=== PATIENT | female | born 1935 | race Caucasian/White ===

== ENCOUNTER 2018-12-30 11:55 | Inpatient (IN) | payer MEDICARE, OTHER, SELFPAY ==
[2018-12-30 11:56] VITALS: BP 101/65; PULSE 99; RESP 16; TEMP 36; O2SAT 94; BMI 25.6
--- NOTE | 2018-12-30 12:17 | RAD_ITS ---
STUDY: X-RAY CHEST REASON FOR EXAM: Female, 83 years old. Difficulty breathing. Abdominal swelling. TECHNIQUE: PA and lateral views of the chest. COMPARISON: None. FINDINGS: EKG electrodes are seen. Coarsened increased interstitial markings in both lungs worse at the lung bases with areas of confluence. This is suggestive for chronic interstitial fibrosis. Clinical correlation is recommended. There is no demonstrated pleural abnormality. Normal size heart. Normal mediastinum and epi. Normal visualized pulmonary arteries. There is atherosclerotic calcification of the aortic arch with tortuosity. There are diffuse degenerative changes of the visualized thoracic spine. Normal visualized ribs, clavicles, and shoulders. There is no demonstrated abnormality of the visualized soft tissue structures of the upper abdomen. RAD/Chest PA and Lateral IMPRESSION: Findings suggestive of chronic interstitial fibrosis. Electronically Signed: Kamaljit Logan, at 14:01 EST , Service support ,
--- NOTE | 2018-12-30 12:17 | CT_ITS ---
STUDY: CT ABDOMEN AND PELVIS WITHOUT CONTRAST REASON FOR EXAM: Female, 83 years old. Shortness of breath. Abdominal pain and swelling. RADIATION DOSAGE (If Supplied By Facility): CTDIvol = ( 7.54 ) mGy, DLP = ( 363.72 ) mGycm TECHNIQUE: Transaxial images were obtained from the dome of the diaphragm to the symphysis pubis without oral contrast, and without intravenous contrast. Sagittal and coronal images were reconstructed. Individualized dose optimization techniques were used for this CT. COMPARISON: None. FINDINGS: Coarsened increased interstitial markings at the lung bases with areas of bronchiectasis suggestive of chronic interstitial fibrosis. Coronary artery calcification. Mild hepatomegaly. There is a contracted gallbladder with thickened gallstones. There is mild splenomegaly. Normal pancreas. Free fluid in the abdomen and pelvis. Normal bilateral adrenal glands. Normal right kidney. Normal left kidney. There is a small hiatal hernia. Normal small intestine. There are multiple colonic diverticula consistent with diverticulosis. The appendix is visualized and appears normal. There is diffuse atherosclerotic calcification of the abdominal aorta and its major visceral branches., without a demonstrated aneurysm. Normal inferior vena cava. There is borderline retroperitoneal lymphadenopathy with enlarged nodes no greater than 10mm in the short axis diameter. Normal urinary bladder. Enlarged right inguinal lymph node measuring 2 cm. Small inguinal lymph nodes are similar also seen bilaterally. There is a small umbilical hernia containing fat. There are diffuse degenerative changes of the visualized lumbar spine. 20% loss of height of the superior endplate of the L1 vertebrae. CT/Abdomen/Pelvis without Cont IMPRESSION: Contracted gallbladder containing stones. Ascites. Hepatosplenomegaly. Findings suggestive of a chronic interstitial fibrosis at the lung bases. Electronically Signed: Kamaljit Logan, at 14:04 EST , Service support ,
--- NOTE | 2018-12-30 12:17 | EKG12_ITS ---
Test Reason : Blood Pressure : / mmHG Vent. Rate : 081 BPM Atrial Rate : 081 BPM P-R Int : 170 ms QRS Dur : 124 ms QT Int : 414 ms P-R-T Axes : 024 068 049 degrees QTc Int : 480 ms Sinus rhythm with marked sinus arrhythmia Possible Lateral infarct , age undetermined Left bundle branch block Confirmed by JUANITA ROMERO, PARESH ([id number]), editor managing newspaper PATRICE GONZALEZ ([id number]) on 01/04/2019 11:19:59 AM Referred By: Moody Belcher Confirmed By:PARESH GRANT MD
--- NOTE | 2018-12-30 12:18 | ED.VIS.GEN ---
History of Present Illness Chief Complaint: Abd Pain Detail of Chief Complaint: Nominal pain and distention, shortness of breath Informant: Patient, Family Onset: Weeks Context: Gradual Onset Timing: Waxes and wanes Current Severity: Mild Maximum Severity: Moderate Narrative: Patient presents with daughter for abdominal pain and swelling he had patient recently moved to the area from [place]. She is been following with Dr. Haskins. Patient states that at 1 of her initial visits with him she mentioned a chronic cough. There was concern that this was secondary to the amlodipine that she was taking for her blood pressure. This medication was stopped, however the patient developed abdominal pain and swelling. After several weeks decision was made to put her back on her amlodipine but the swelling in her abdomen did not resolve. She is now currently on Lasix as well to try to get rid of this extra fluid but has not improved. Symptoms seem to be worse throughout the day and patient has difficulty breathing secondary to her abdominal distention. She complains of itching at night as well. - Past Medical History (1) Hypertension Status: Chronic (2) High cholesterol Status: Chronic Past Medical History - Allergies and Home Meds Allergies/Adverse Reactions: Allergies WATER PILL Adverse Reaction (Uncoded 12/30/18 11:59) Other DIDNT FELL RIGHT Primary Care Physician: Ember Haskins MD [Primary Care Provider] - Review of Systems General: Denies: Chills, Fever Eyes: Denies: Visual changes - bilaterally ENT: Denies: Bilateral ear pain Cardiovascular: Denies: Chest pain Respiratory: Reports: Dyspnea. Denies: Cough Gastrointestinal: Reports: Abdominal pain. Denies: Nausea, Vomiting, Diarrhea Genitourinary: Denies: Dysuria Musculoskeletal: Denies: Extremity Pain Skin: Denies: Rash Neurological: Denies: Headache Hematologic: Denies: Easy bruising Allergy: Denies: Uticaria Physical Exam Vital Signs/Narrative: Vital Signs Temp Pulse Resp BP Pulse Ox 12/30/18 11:56 96.8 F L 99 16 101/65 94 Inital Vital Signs reviewed: Yes General: Well nourished, Well developed Head: Normocephalic ENT: Moist mucous membranes Neck: Supple Cardiovascular: Regular rate, Regular rhythm Respiratory: No distress, CTA bilaterally Abdomen: Soft, Normal bowel sounds, Tender - Mild diffuse tenderness., - - Abdomen slightly distended.. Negative for: Guarding, Rebound tenderness Extremities: Nontender, No edema Skin: Normal color, No rash Neurological: Alert, Oriented x3 Psychological: Normal affect Diagnostic/Tx/Re-eval Impressions Abdomen/Pelvis CT 12/30/18 12:17 IMPRESSION: Contracted gallbladder containing stones. Ascites. Hepatosplenomegaly. Findings suggestive of a chronic interstitial fibrosis at the lung bases. Electronically Signed: Kamaljit Mustafajanet, at 14:04 EST , Service support , Chest X-Ray 12/30/18 12:17 IMPRESSION: Findings suggestive of chronic interstitial fibrosis. Electronically Signed: Kamaljit Doreen, at 14:01 EST , Service support , 12/30/18 12:17 Abdomen/Pelvis without Cont [CT] Stat Chest PA and Lateral [RAD] Stat 12/30/18 14:20 Stool Stool Occult Blood (WALTER) - Final Occult Blood Positive Laboratory Results 12/30/18 12/30/18 12/30/18 12:25 12:25 12:25 WBC 5.8 RBC 3.79 L Hgb 8.4 L Hct 28.3 L MCV 74.7 L MCH 22.2 L MCHC 29.7 L RDW Std Deviation 51.0 H RDW Coeff of Kerri 19.0 H Plt Count 166 MPV 9.9 Immature Gran % (Auto) 0.300 Neut % (Auto) 69.9 Lymph % (Auto) 17.8 L [place] % (Auto) 9.4 Eos % (Auto) 1.7 Baso % (Auto) 0.9 Absolute Neuts (auto) 4.1 Absolute Lymphs (auto) 1.04 Nucleated RBC % 0 Sodium 141 Potassium 2.9 L Chloride 101 Carbon Dioxide 31.0 Anion Gap 9 BUN 9 Creatinine 0.79 Estim Creat Clear Calc 34.90 Est GFR (MDRD) Af Amer 89 Est GFR (MDRD) Non-Af 74 BUN/Creatinine Ratio 11.3 Glucose 182 H Calcium 7.8 L Total Bilirubin 0.50 Direct Bilirubin 0.19 AST 22 ALT 19 Alkaline Phosphatase 108 B-Natriuretic Peptide 146.9 H Total Protein 7.4 Albumin 2.7 L Globulin 4.7 H Lipase 57 L Urine Color Urine Clarity Urine pH Ur Specific [place] Urine Protein Urine Glucose (UA) Urine Ketones Urine Occult Blood Urine Nitrite Urine Bilirubin Urine Urobilinogen Ur Leukocyte Esterase Urine RBC Urine WBC Ur Squamous Epith Cells Urine Bacteria Urine Mucus 12/30/18 12:30 WBC RBC Hgb Hct MCV MCH MCHC RDW Std Deviation RDW Coeff of Kerri Plt Count MPV Immature Gran % (Auto) Neut % (Auto) Lymph % (Auto) [place] % (Auto) Eos % (Auto) Baso % (Auto) Absolute Neuts (auto) Absolute Lymphs (auto) Nucleated RBC % Sodium Potassium Chloride Carbon Dioxide Anion Gap BUN Creatinine Estim Creat Clear Calc Est GFR (MDRD) Af Amer Est GFR (MDRD) Non-Af BUN/Creatinine Ratio Glucose Calcium Total Bilirubin Direct Bilirubin AST ALT Alkaline Phosphatase B-Natriuretic Peptide Total Protein Albumin Globulin Lipase Urine Color Yellow Urine Clarity Clear Urine pH 7.0 Ur Specific [place] 1.010 Urine Protein Negative Urine Glucose (UA) Normal Urine Ketones Negative Urine Occult Blood Negative Urine Nitrite Negative Urine Bilirubin Negative Urine Urobilinogen Normal Ur Leukocyte Esterase Negative Urine RBC 0 SEEN Urine WBC 0-5 SEEN Ur Squamous Epith Cells 0-5 SEEN Urine Bacteria 0 SEEN Urine Mucus 0 SEEN - EKG Initial EKG Interpretation: Sinus Rhythm - Sinus 81 with intraventricular conduction delay. No acute ST change. - Medical Decision Making Test results are discussed with the patient. She was noted to be anemic now. I was able to find records from admission at [facility] on August 05. At that time her hemoglobin was 11.0. I did perform rectal examination here and it does test positive for blood. Patient has not noted any gross blood. I discussed with the patient and daughter at bedside at length I do not at this time know the cause of her ascites. I did raise the possibility that she may have a malignancy somewhere causing this. Patient states she is never had a colonoscopy and does not follow-up with [facility] regularly. She never had a hysterectomy and still has both her ovaries. I discussed with them that she will need to have fluid in her abdomen tapped for further testing, but I cannot guarantee will be done as an inpatient. We will admit her to monitor her blood counts. I have spoken with Dr. Belcher. ED Disposition - Plan for ED Patient: Disposition: Acute Care Hospital [facility] Diagnosis: Anemia, GI bleed, Ascites Referrals: Ember Haskins MD [Primary Care Provider] -
[2018-12-30 12:40] LABS: Absolute Lymphocyte Count 1.04 X10^3/uL (0.83-4.51); Absolute Neutrophil Count 4.1 X10^3/uL (2.0-7.7); Basophil# 0.05 X10^3/uL; Basophil% 0.9 % (0-1); Eosinophils% 1.7 % (0-5); Hematocrit 28.3 % (37-47); Hemoglobin 8.4 g/dL (12.0-15.0); Lymphocyte # 1.04 X10^3/ul (4.0); Lymphocyte % 17.8 % (19-41); Mean Corp Hgb Conc 29.7 g/dL (32-36); Mean Corpuscular Hgb 22.2 pg (27.0-32.0); Mean Corpuscular Volume 74.7 fL (81-99); Mean Platelet Vol. 9.9 fl (6.2-12.0); Monocyte# 0.55 X10^3/uL; Monocyte% 9.4 % (0-10); NRBC Flagged by Analyzer 0 % (0-5); Neutrophil # 4.08 X10^3/uL (2.7-7.7); Neutrophil % 69.9 % (47-70); Platelet Count 166 K/mm3 (150-450); Red Blood Count 3.79 M/mm3 (4.2-5.4); White Blood Count 5.8 K/mm3 (4.4-11.0)
[2018-12-30 12:48] LABS: AST(SGOT) 22 U/L (15-37); Alanine Aminotransfer ALT/SGPT 19 U/L (13-56); Albumin, Serum 2.7 g/dL (3.2-5.0); Alkaline Phosphatase 108 U/L (45-117); Anion Gap 9 (5-15); BUN 9 mg/dL (7-18); BUN/Creat Ratio 11.3 RATIO (10-20); Bilirubin, Direct 0.19 mg/dL (0.00-0.30); Calcium,Total 7.8 mg/dL (8.5-10.1); Chloride 101 mmol/L (98-107); Creatinine, Serum 0.79 mg/dL (0.55-1.02); EST Glomerular Filtration Rate 74 mL/min (>60); Est Glom Filt Rate - Afr Amer 89 mL/min (>60); Globulin 4.7 g/dL (2.2-4.2); Glucose 182 mg/dL (74-106); Lipase 57 U/L (73-393); Potassium 2.9 mmol/L (3.5-5.1); Protein, Total 7.4 g/dL (6.4-8.2); Sodium Level 141 mmol/L (136-145)
[2018-12-30 12:53] LABS: Bacteria 0 SEEN /hpf (None Seen); Mucous, Urine 0 SEEN /hpf (<or=2+); Red Blood Cells-Urine 0 SEEN /hpf (0-5)
[2018-12-30 13:03] LABS: Color, Urine Yellow (Yellow); Glucose, Dipstick Normal (Normal); Ketone-Dipstick Negative (Negative); Leukocyte Esterase-Dipstick Negative /ul (Negative); Nitrite-Dipstick Negative (Negative); Occult Blood-Urine Negative /ul (Negative); Protein-Dipstick Negative (Negative); Urine Bilirubin Dipstick Negative (Negative); Urine Clarity Clear (Clear); Urine Urobilinogen Normal (Normal)
[2018-12-30 13:14] LABS: Squamous Epithelial Cells - UA 0-5 SEEN /hpf (5-10); White Blood Cells 0-5 SEEN /hpf (0-5)
[2018-12-30 13:15] LABS: BNP,B-Type NATRIURETIC PEPTIDE 146.9 pg/mL (0-100)
[2018-12-30 14:28] VITALS: BP 121/49; PULSE 71; RESP 18; O2SAT 98
[2018-12-30 15:30] VITALS: BP 151/58; PULSE 86; RESP 20; O2SAT 99
[2018-12-30 16:29] VITALS: BP 144/50; PULSE 71; RESP 16; TEMP 36.9; O2SAT 95
[2018-12-30 16:32] VITALS: BMI 26.5
[2018-12-30 16:34] VITALS: BMI 26.6
--- NOTE | 2018-12-30 16:54 | CT_ITS ---
STUDY: CT ABDOMEN AND PELVIS WITH CONTRAST REASON FOR EXAM: Female, 83 years old. Ascites, pain RADIATION DOSAGE (If Supplied By Facility): CTDIvol = ( 18.24 ) mGy, DLP = ( 825.56 ) mGycm TECHNIQUE: Transaxial images were obtained from the dome of the diaphragm to the symphysis pubis without oral contrast. IV/Oral Isovue 370 100mL was administered. Sagittal and coronal images were reconstructed. Individualized dose optimization techniques were used for this CT. COMPARISON: December 30, 2018 at 13:14 hours FINDINGS: The visualized lung bases demonstrate interstitial prominence and atelectasis and fibrotic changes. The visualized portions of the heart are within normal limits. Normal liver. Cholelithiasis. No significant dilatation of extrahepatic biliary system. Enlarged spleen. Normal pancreas. Normal bilateral adrenal glands. Normal right kidney. Normal left kidney. Normal visualized stomach. Mild ileus of the small intestine. Diverticulosis of the colon. The appendix is visualized and appears normal. Normal abdominal aorta. Normal inferior vena cava. Normal retroperitoneum. Mild ascites. Mildly prominent mesenteric nodes and mesenteric thickening. Normal urinary bladder. Moderate pelvic fluid. Small uterus. Mild fluid in the right inguinal canal. Small umbilical hernia with fluid. Degenerative vertebral changes and scoliosis. Superior endplate depression of L1. CT/Abdomen/Pelvis WITH Contrast IMPRESSION: Cholelithiasis. Splenomegaly. Small bowel ileus. Colonic diverticulosis. Ascites and pelvic fluid. There is mesenteric thickening and mildly prominent mesenteric nodes. Interstitial prominence and fibrotic changes in the lung bases. Mild ascitic fluid in the right inguinal canal and umbilical hernia. Electronically Signed: Joseph Ahuja DO at 20:03 EST Tel [phone], Service support ,
[2018-12-30 17:13] LABS: Iron 15 ug/dL (50-170); Iron Binding Capacity,Total 364 ug/dL (250-450); PERCENT IRON SATURATION 4.1 % (15.0-55.0)
--- NOTE | 2018-12-30 18:10 | CON.PCM_ITS ---
Problem List (1) GI bleed Status: Acute Qualifiers: GI bleed type/associated pathology: unspecified gastrointestinal hemorrhage type Qualified Code(s): K92.2 - Gastrointestinal hemorrhage, unspecified (2) Ascites Status: Acute Qualifiers: Ascites type: other type Qualified Code(s): R18.8 - Other ascites Reason for Consult Date of Consultation: 12/30/18 History of Present Illness: The patient is a 83 year old F who presented due to abdominal distention. She says is been going on for the last few weeks. She is passing gas and having normal bowel movements. She has no gross blood in her stool. She has no nausea or vomiting. She is never had a colonoscopy. She does not describe any a bdominal pain only distention and discomfort. Past Medical History Past Medical History (Chronic Problems): Chronic Problems Hypertension (Chronic) High cholesterol (Chronic) Allergies WATER PILL Adverse Reaction (Uncoded 12/30/18 11:59) Other DIDNT FELL RIGHT Home Medications: Ambulatory Orders Medication Instructions Recorded Amlodipine Besylate 5 mg PO DAILY 12/30/18 Aspirin [Aspir 81] 81 mg PO DAILY 12/30/18 Furosemide [Lasix] 20 mg PO DAILY 12/30/18 Pravastatin Sodium 40 mg PO ACHS 12/30/18 Sertraline HCl 25 mg PO DAILY 12/30/18 Surgical History: no surgical history Smoking Status: Former smoker - *Family History Maternal History Items: No pertinent history Review of Systems Constitutional: Denies: Anorexia, Fever HEENT: Denies: Difficulty Swallowing Cardiovascular: Denies: Chest Pain Gastrointestinal: Reports: - - Abdominal distention. Denies: Abdominal Pain, Hematemesis, Hematochezia, Melena Genitourinary: Denies: Dysuria Neurological: Denies: Balance problems Hematologic/ Lymphatic: Reports: Anemia Patient Problems: Active and Suspected Problems Anemia (Acute) GI bleed (Acute) Ascites (Acute) - Physical Exam Vitals/I&O's: Vital Signs Temp Pulse Resp BP Pulse Ox 98.5 F 71 16 144/50 H 95 12/30/18 16:29 12/30/18 16:29 12/30/18 16:29 12/30/18 16:29 12/30/18 16:29 Oxygen Delivery Method Room Air Weight: 145 lb 4.554 oz Body Mass Index (BMI) 26.5 General: Alert, Oriented x3, Cooperative HEENT: Atraumatic Neck: No JVD Lungs: Normal air movement Cardiovascular: Regular Rhythm Abdomen: Soft, Distended Skin: No rashes Musculoskeletal: No Muscle Wasting Psych/Mental Status: Normal Affect Microbiology Past 72 Hours 12/30/18 14:20 Stool Stool Occult Blood (WALTER) - Final Occult Blood Positive Laboratory Results 12/30/18 12:25: WBC 5.8, RBC 3.79 L, Hgb 8.4 L, Hct 28.3 L, MCV 74.7 L, MCH 22.2 L, MCHC 29.7 L, RDW Std Deviation 51.0 H, RDW Coeff of Kerri 19.0 H, Plt Count 166, MPV 9.9, Immature Gran % (Auto) 0.300, Neut % (Auto) 69.9, Lymph % (Auto) 17.8 L, [place] % (Auto) 9.4, Eos % (Auto) 1.7, Baso % (Auto) 0.9, Absolute Neuts (auto) 4.1, Absolute Lymphs (auto) 1.04, Nucleated RBC % 0 12/30/18 12:25: Sodium 141, Potassium 2.9 L, Chloride 101, Carbon Dioxide 31.0, Anion Gap 9, BUN 9, Creatinine 0.79, Estim Creat Clear Calc 34.90, Est GFR (MDRD) Af Amer 89, Est GFR (MDRD) Non-Af 74, BUN/Creatinine Ratio 11.3, Glucose 182 H, Calcium 7.8 L, Total Bilirubin 0.50, Direct Bilirubin 0.19, AST 22, ALT 19, Alkaline Phosphatase 108, Total Protein 7.4, Albumin 2.7 L, Globulin 4.7 H, Lipase 57 L 12/30/18 12:25: B-Natriuretic Peptide 146.9 H 12/30/18 12:25: Iron 15 L, TIBC 364, Iron Saturation 4.1 L 12/30/18 12:30: Urine Color Yellow, Urine Clarity Clear, Urine pH 7.0, Ur Specific [place] 1.010, Urine Protein Negative, Urine Glucose (UA) Normal, Urine Ketones Negative, Urine Occult Blood Negative, Urine Nitrite Negative, Urine Bilirubin Negative, Urine Urobilinogen Normal, Ur Leukocyte Esterase Negative, Urine RBC 0 SEEN, Urine WBC 0-5 SEEN, Ur Squamous Epith Cells 0-5 SEEN, Urine Bacteria 0 SEEN, Urine Mucus 0 SEEN Current Medications Acetaminophen (Tylenol) 650 mg PO Q6H PRN PRN PRN Reason: Pain Score 1-3/Temp > 100.7 F Amlodipine Besylate (Norvasc) 5 mg PO DAILY OSVALDO Heparin Sodium (Porcine) (Heparin Na) 5,000 unit SC Q12 OSVALDO Sodium Chloride () 500 mls @ 15 mls/hr IV PRN PRN PRN Reason: Blood Transfusion Sodium Chloride () 250 mls @ 15 mls/hr IV .[id number] PRN PRN Reason: Saline Flush Iron Sucrose 200 mg/ Sodium (Chloride) 110 mls @ 220 mls/hr IV X1 ONE Stop: 12/30/18 18:59 Iron Sucrose 200 mg/ Sodium (Chloride) 110 mls @ 220 mls/hr IV X1 ONE Stop: 12/31/18 10:29 Pravastatin Sodium (Pravachol) 40 mg PO QHS OSVALDO Sertraline HCl (Zoloft) 25 mg PO DAILY OSVALDO Sodium Chloride () 10 - 40 ml IV UD PRN PRN Reason: SALINE FLUSH Assessment/Plan All Active Problems Anemia (Acute) GI bleed (Acute) Ascites (Acute) 83-year-old female with ascites 1. The patient has ascites of unknown origin on the CT scan that was done without contrast. The patient also has iron deficiency anemia with a very low iron level. She has not noticed any gross blood in her stool but positive fecal occult blood test. She is never had a colonoscopy. There is concern for colon malignancy. I will get a CT scan with p.o. and IV contrast to evaluate the liver. Her LFTs are normal. 2. Patient will need EGD and colonoscopy at some point. I will await CT scan results before endoscopy. If she does have a malignancy of the GI tract I would recommend pre-optimization as her albumin is very low and she is malnutritioned. Gabriele Loeps MD Pager: [facility] [address] [place] [address], [address] [place] [phone] Office:
[2018-12-30 18:49] LABS: International Normalized Ratio 1.3; Prothrombin Time (Protime)PT. 16.4 SECONDS (11.7-14.9)
[2018-12-30 18:50] LABS: Partial Thromboplast Time 31.7 Seconds (24.1-36.2)
--- NOTE | 2018-12-30 18:54 | HP.PCM_ITS ---
Problem List (1) Abdominal distention Status: Acute History of Present Illness Date of Admission: 12/30/18 Chief Complaint: Abdominal distention The patient is a 83 year old F seen in the emergency room at [facility] with a chief complaint of abdominal distention which is started about a month ago. Patient saw her PCP who placed her on oral Lasix but did not do any testing. Patient states the abdominal distention has worsened over the past month and she came to the ER for evaluation. Work-up in the emergency room included labs which showed a normal white blood cell count, hemoglobin was low at 8.4 with microcytic indices. Patient's chemistry profile was remarkable for potassium of 2.9, glucose is 182, beta natruretic peptide was 146.9, lipase was 57. Analysis was unremarkable. The emergency room physician performed a rectal exam with Hemoccult-her Hemoccult was positive. Patient had a chest x-ray which showed suggestive of chronic interstitial fibrosis but no acute process, CT the abdomen and pelvis was performed without contrast-it showed evidence of ascites, contracted gallbladder containing stones, hepatosplenomegaly, and findings suggestive of chronic fibrosis at the lung bases. Patient will be admitted for hypokalemia, anemia, and ascites, I will have general surgery see the patient, it is likely she will need a paracentesis for evaluation of her ascitic fluid. She may also need endoscopy performed due to her anemia and Hemoccult-positive stool. 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 Denies: Anorexia, Chills, Fever, Night Sweats, Malaise, Weakness, Weight Change Eyes: Denies: Cataracts, Conjunctivae Inflammation, Double vision, Drainage HEENT: Denies: Difficulty Swallowing, Dysphasia, Ear Pain, Eye Pain, Hearing Changes, Nasal bleeding, Nasal Congestion, Post Nasal Drip Cardiovascular: Denies: Chest Pain, Claudication, Chest Pressure, Chest Tightness, Edema, Heaviness, Palpitations Respiratory: Denies: Cough, Hemoptysis, Pleuritic Pain, Shortness of Breath, Shortness of breath at rest, Shortness of breath upon exertion, Sputum production Gastrointestinal: Reports: - - Abdominal distention x1 month. Denies: Abdominal Pain, Constipation, Diarrhea, Dyspepsia, Hematemesis, Hematochezia, Nausea, Melena, Vomiting Genitourinary: Denies: Dysuria, Frequency, Hematuria, Hesitancy, Incontinence, Nocturia, Retention, Urgency Gynecological: Denies: Breast symptoms Musculoskeletal: Denies: Back Pain, Foot Pain, Hand Pain, Joint Pain, Joint stiffness, Joint swelling, Joint Tenderness, Leg Pain Skin: Denies: Dryness, Jaundice, Pruritis, Rash Neurological: Denies: Blurred vision, Double vision, Change in Speech, Slurred speech, Difficulty swallowing, Focal weakness, Headaches, Incoordination, Numbness, Tingling Psychiatric: Reports: Depression. Denies: Anxiety, Homicidal Ideations, Suicidal Ideations Endocrine: Denies: Change in Body Habitus, Heat/ Cold Intolerance, Polydipsia, Polyuria Hematologic/ Lymphatic: Denies: Adenopathy, Anemia, Easy Bruising, Easy Bleeding, Petechiae, Purpura VTE Information - Inpt Only VTE Present on Admission: No VTE Mechan Device Prophylaxis: None VTE Pharm Prophylaxis ordered?: Yes Patient Problems: Active and Suspected Problems Anemia (Acute) GI bleed (Acute) Ascites (Acute) Abdominal distention (Acute) - Physical Exam Vitals/I&O's: Vital Signs Temp Pulse Resp BP Pulse Ox 98.5 F 71 16 144/50 H 95 12/30/18 16:29 12/30/18 16:29 12/30/18 16:29 12/30/18 16:29 12/30/18 16:29 Oxygen Delivery Method Room Air Weight: 65.9 kg Body Mass Index (BMI) 26.5 Intake and Output for Last 24 Hours 12/28/18 12/29/18 12/30/18 23:59 23:59 23:59 Intake Total 650 / 650 Balance 650 / 650 General: Alert, Oriented x3, Cooperative, No apparent distress, Well developed, Well nourished HEENT: Atraumatic, PERRLA, EOMI, Normocephalic Oral: Moist Mucosa Neck: Supple, No JVD, Negative Carotid Bruits, No Nuchal Rigidity, Trachea Midline, Thyroid Normal Size and Texture Lungs: Clear to auscultation, Normal air movement, No rhonchi, No wheeze, No rales Cardiovascular: Regular rate, Regular Rhythm, Normal S1, Normal S2, No murmurs, PMI Normal, No rub noted, No Gallop Abdomen: Bowel Sounds Present, Soft, Non Tender, Distended - Patient has generalized abdominal distention, she has tympany noted over the upper abdomen Extremities: No edema, Capillary Refill Less than 3 Seconds Skin: No rashes, No breakdown Musculoskeletal: No Tenderness to Palpation of Joints or Extremities Neurological: Cranial nerves II-XII grossly intact, Neuro grossly intact, Sensory exam intact to light touch and pain, Coordination normal Psych/Mental Status: Normal Affect, Appropriate, Alert and oriented to time, place, person, mood and affect Microbiology Past 72 Hours 12/30/18 14:20 Stool Stool Occult Blood (WALTER) - Final Occult Blood Positive Laboratory Results 12/30/18 12:25: WBC 5.8, RBC 3.79 L, Hgb 8.4 L, Hct 28.3 L, MCV 74.7 L, MCH 22.2 L, MCHC 29.7 L, RDW Std Deviation 51.0 H, RDW Coeff of Kerri 19.0 H, Plt Count 166, MPV 9.9, Immature Gran % (Auto) 0.300, Neut % (Auto) 69.9, Lymph % (Auto) 17.8 L, [place] % (Auto) 9.4, Eos % (Auto) 1.7, Baso % (Auto) 0.9, Absolute Neuts (auto) 4.1, Absolute Lymphs (auto) 1.04, Nucleated RBC % 0 12/30/18 12:25: Sodium 141, Potassium 2.9 L, Chloride 101, Carbon Dioxide 31.0, Anion Gap 9, BUN 9, Creatinine 0.79, Estim Creat Clear Calc 34.90, Est GFR (MDRD) Af Amer 89, Est GFR (MDRD) Non-Af 74, BUN/Creatinine Ratio 11.3, Glucose 182 H, Calcium 7.8 L, Total Bilirubin 0.50, Direct Bilirubin 0.19, AST 22, ALT 19, Alkaline Phosphatase 108, Total Protein 7.4, Albumin 2.7 L, Globulin 4.7 H, Lipase 57 L 12/30/18 12:25: B-Natriuretic Peptide 146.9 H 12/30/18 12:25: Iron 15 L, TIBC 364, Iron Saturation 4.1 L 12/30/18 12:30: Urine Color Yellow, Urine Clarity Clear, Urine pH 7.0, Ur Specific [place] 1.010, Urine Protein Negative, Urine Glucose (UA) Normal, Urine Ketones Negative, Urine Occult Blood Negative, Urine Nitrite Negative, Urine Bilirubin Negative, Urine Urobilinogen Normal, Ur Leukocyte Esterase Negative, Urine RBC 0 SEEN, Urine WBC 0-5 SEEN, Ur Squamous Epith Cells 0-5 SEEN, Urine Bacteria 0 SEEN, Urine Mucus 0 SEEN 12/30/18 18:30: PT 16.4 H, INR 1.3, APTT 31.7 Current Medications Acetaminophen (Tylenol) 650 mg PO Q6H PRN PRN PRN Reason: Pain Score 1-3/Temp > 100.7 F Amlodipine Besylate (Norvasc) 5 mg PO DAILY OSVALDO Heparin Sodium (Porcine) (Heparin Na) 5,000 unit SC Q12 OSVALDO Sodium Chloride () 500 mls @ 15 mls/hr IV PRN PRN PRN Reason: Blood Transfusion Sodium Chloride () 250 mls @ 15 mls/hr IV .[id number] PRN PRN Reason: Saline Flush Iron Sucrose 200 mg/ Sodium (Chloride) 110 mls @ 220 mls/hr IV X1 ONE Stop: 12/30/18 18:59 Iron Sucrose 200 mg/ Sodium (Chloride) 110 mls @ 220 mls/hr IV X1 ONE Stop: 12/31/18 10:29 Pravastatin Sodium (Pravachol) 40 mg PO QHS OSVALDO Sertraline HCl (Zoloft) 25 mg PO DAILY OSVALDO Sodium Chloride () 10 - 40 ml IV UD PRN PRN Reason: SALINE FLUSH Assessment/Plan All Active Problems Anemia (Acute) GI bleed (Acute) Ascites (Acute) Abdominal distention (Acute) #1 anemia-microcytic in nature, suspect iron deficiency anemia-patient will be admitted, CBC will be rechecked, she is asymptomatic at the present time and I do not believe she needs to be transfused. I will order iron studies on the patient, patient had Hemoccult positive stool in the emergency room and will need a GI work-up. #2 ascites-etiology unclear, patient will have a paracentesis performed tomorrow and we will analyze her ascitic fluid. I will have general surgery see the patient. #3 hypokalemia-most probably from use of Lasix without potassium supplementation, I have given the patient 40 mEq of potassium chloride today, labs will be rechecked in the morning, I do not feel the patient needs to be maintained on Lasix at this time #4 hypertension #5 evidence of fibrosis of the lungs on her chest x-ray-she may need to follow- up as an outpatient or have a CT scan performed. Patient had no complaints to this examiner of shortness of breath #6 heme positive stool-patient has never had a colonoscopy, again surgery will see the patient in consultation, I feel she will need upper and lower endoscopy Code Visit Inpatient E&M: 92424 Init Hosp L3
[2018-12-30] MEDS: 0.9% Saline Lock 10 ML Syringe IV (19:57)
[2018-12-30] MEDS: Pravastatin 40 MG Tablet PO (20:04)
[2018-12-30] MEDS: Heparin Injection (Vial) 5,000 UNIT/ML VIAL 5000 UNIT SC (20:04)
[2018-12-30 20:11] VITALS: BP 117/60; PULSE 72; RESP 16; TEMP 36.9; O2SAT 92
--- NOTE | 2018-12-30 20:11 | NURSING ---
Pt requesting to have meds early so she can go to sleep.
[2018-12-31 02:40] VITALS: BP 126/52; PULSE 70; RESP 16; TEMP 36.7; O2SAT 94
[2018-12-31 06:18] LABS: Absolute Lymphocyte Count 0.39 X10^3/uL (0.83-4.51); Absolute Neutrophil Count 3.6 X10^3/uL (2.0-7.7); Basophil# 0.05 X10^3/uL; Basophil% 1.1 % (0-1); Eosinophil# 0.12 X10^3/uL; Eosinophils% 2.6 % (0-5); Hematocrit 27.1 % (37-47); Lymphocyte # 0.39 X10^3/ul (4.0); Lymphocyte % 8.5 % (19-41); Mean Corp Hgb Conc 29.5 g/dL (32-36); Mean Corpuscular Volume 74.7 fL (81-99); Monocyte# 0.42 X10^3/uL; Monocyte% 9.2 % (0-10); NRBC Flagged by Analyzer 0 % (0-5); Neutrophil # 3.59 X10^3/uL (2.7-7.7); Neutrophil % 78.2 % (47-70); POSITIVE DIFFERENTIAL YES; Platelet Count 130 K/mm3 (150-450); RBC Distribution Width CV 19.2 % (11.6-14.6); RBC Distribution Width SD 51.8 fl (35.1-43.9); Red Blood Count 3.63 M/mm3 (4.2-5.4); White Blood Count 4.6 K/mm3 (4.4-11.0)
[2018-12-31 06:20] LABS: Differential Indicated SCAN CRITERIA MET
[2018-12-31 06:41] LABS: Anion Gap 9 (5-15); BUN 7 mg/dL (7-18); BUN/Creat Ratio 12.2 RATIO (10-20); Calcium,Total 7.8 mg/dL (8.5-10.1); Chloride 105 mmol/L (98-107); Creatinine, Serum 0.57 mg/dL (0.55-1.02); EST Glomerular Filtration Rate 108 mL/min (>60); Est Glom Filt Rate - Afr Amer 130 mL/min (>60); Glucose 105 mg/dL (74-106); LDH 182 U/L (84-246); Potassium 3.5 mmol/L (3.5-5.1); Sodium Level 142 mmol/L (136-145)
--- NOTE | 2018-12-31 07:55 | PCM.PN.SRG ---
Patient Problems: Active and Suspected Problems Anemia (Acute) GI bleed (Acute) Ascites (Acute) Abdominal distention (Acute) Subjective: The patient reports that she had 2 liquid bowel movements. She is not having any vomiting. She still feels distended. - Physical Exam Vitals/I&O's: Vital Signs Temp Pulse Resp BP Pulse Ox 98.1 F 70 16 126/52 H 94 12/31/18 02:40 12/31/18 02:40 12/31/18 02:40 12/31/18 02:40 12/31/18 02:40 Oxygen Delivery Method Room Air Weight: 145 lb 4.554 oz Body Mass Index (BMI) 26.5 Intake and Output for Last 24 Hours 12/29/18 12/30/18 12/31/18 23:59 23:59 23:59 Intake Total 760.25 / 880.25 120 / 120 Balance 760.25 / 880.25 120 / 120 General: Alert, Oriented x3 Lungs: Normal air movement Abdomen: Soft, Distended Skin: No rashes Musculoskeletal: No Muscle Wasting Neurological: Cranial nerves II-XII grossly intact Psych/Mental Status: Normal Affect Microbiology Past 72 Hours 12/30/18 14:20 Stool Stool Occult Blood (WALTER) - Final Occult Blood Positive Laboratory Results 12/30/18 12:25: WBC 5.8, RBC 3.79 L, Hgb 8.4 L, Hct 28.3 L, MCV 74.7 L, MCH 22.2 L, MCHC 29.7 L, RDW Std Deviation 51.0 H, RDW Coeff of Kerri 19.0 H, Plt Count 166, MPV 9.9, Immature Gran % (Auto) 0.300, Neut % (Auto) 69.9, Lymph % (Auto) 17.8 L, [place] % (Auto) 9.4, Eos % (Auto) 1.7, Baso % (Auto) 0.9, Absolute Neuts (auto) 4.1, Absolute Lymphs (auto) 1.04, Nucleated RBC % 0 12/30/18 12:25: Sodium 141, Potassium 2.9 L, Chloride 101, Carbon Dioxide 31.0, Anion Gap 9, BUN 9, Creatinine 0.79, Estim Creat Clear Calc 34.90, Est GFR (MDRD) Af Amer 89, Est GFR (MDRD) Non-Af 74, BUN/Creatinine Ratio 11.3, Glucose 182 H, Calcium 7.8 L, Total Bilirubin 0.50, Direct Bilirubin 0.19, AST 22, ALT 19, Alkaline Phosphatase 108, Total Protein 7.4, Albumin 2.7 L, Globulin 4.7 H, Lipase 57 L 12/30/18 12:25: B-Natriuretic Peptide 146.9 H 12/30/18 12:25: Iron 15 L, TIBC 364, Iron Saturation 4.1 L 12/30/18 12:30: Urine Color Yellow, Urine Clarity Clear, Urine pH 7.0, Ur Specific [place] 1.010, Urine Protein Negative, Urine Glucose (UA) Normal, Urine Ketones Negative, Urine Occult Blood Negative, Urine Nitrite Negative, Urine Bilirubin Negative, Urine Urobilinogen Normal, Ur Leukocyte Esterase Negative, Urine RBC 0 SEEN, Urine WBC 0-5 SEEN, Ur Squamous Epith Cells 0-5 SEEN, Urine Bacteria 0 SEEN, Urine Mucus 0 SEEN 12/30/18 18:30: PT 16.4 H, INR 1.3, APTT 31.7 12/31/18 05:50: WBC 4.6, RBC 3.63 L, Hgb 8.0 L, Hct 27.1 L, MCV 74.7 L, MCH 22.0 L, MCHC 29.5 L, RDW Std Deviation 51.8 H, RDW Coeff of Kerri 19.2 H, Plt Count 130 L, MPV 10.0, Immature Gran % (Auto) 0.400, Neut % (Auto) 78.2 H, Lymph % (Auto) 8.5 L, [place] % (Auto) 9.2, Eos % (Auto) 2.6, Baso % (Auto) 1.1 H, Absolute Neuts (auto) 3.6, Absolute Lymphs (auto) 0.39 L, Nucleated RBC % 0, Differential Comment 12/31/18 05:50: Sodium 142, Potassium 3.5, Chloride 105, Carbon Dioxide 28.0, Anion Gap 9, BUN 7, Creatinine 0.57, Estim Creat Clear Calc 34.90, Est GFR (MDRD) Af Amer 130, Est GFR (MDRD) Non-Af 108, BUN/Creatinine Ratio 12.2, Glucose 105, Calcium 7.8 L, Lactate Dehydrogenase 182 12/31/18 05:50: PT Pending, INR Pending, APTT Pending Clinical Impression(s) from Imaging Studies Abdomen/Pelvis CT 12/30/18 12:17 IMPRESSION: Contracted gallbladder containing stones. Ascites. Hepatosplenomegaly. Findings suggestive of a chronic interstitial fibrosis at the lung bases. Electronically Signed: Kamaljit Doreen, at 14:04 EST , Service support , Chest X-Ray 12/30/18 12:17 IMPRESSION: Findings suggestive of chronic interstitial fibrosis. Electronically Signed: Kamaljit Doreen, at 14:01 EST , Service support , Abdomen/Pelvis CT 12/30/18 16:54 IMPRESSION: Cholelithiasis. Splenomegaly. Small bowel ileus. Colonic diverticulosis. Ascites and pelvic fluid. There is mesenteric thickening and mildly prominent mesenteric nodes. Interstitial prominence and fibrotic changes in the lung bases. Mild ascitic fluid in the right inguinal canal and umbilical hernia. Electronically Signed: Joseph Ahuja DO at 20:03 EST Tel [phone], Service support , Current Medications Acetaminophen (Tylenol) 650 mg PO Q6H PRN PRN PRN Reason: Pain Score 1-3/Temp > 100.7 F Amlodipine Besylate (Norvasc) 5 mg PO DAILY OSVALDO Furosemide (Lasix) 40 mg PO DAILY OSVALDO Heparin Sodium (Porcine) (Heparin Na) 5,000 unit SC Q12 OSVALDO Last Admin: 12/30/18 20:04 Dose: 5,000 unit Documented by: Sodium Chloride () 500 mls @ 15 mls/hr IV PRN PRN PRN Reason: Blood Transfusion Sodium Chloride () 250 mls @ 15 mls/hr IV .[id number] PRN PRN Reason: Saline Flush Last Infusion: 12/30/18 21:15 Dose: 15 mls/hr Documented by: Iron Sucrose 200 mg/ Sodium (Chloride) 110 mls @ 220 mls/hr IV X1 ONE Stop: 12/31/18 10:29 Pravastatin Sodium (Pravachol) 40 mg PO QHS [facility] Last Admin: 12/30/18 20:04 Dose: 40 mg Documented by: Sertraline HCl (Zoloft) 25 mg PO DAILY [facility] Sodium Chloride () 10 - 40 ml IV UD PRN PRN Reason: SALINE FLUSH Last Admin: 12/30/18 19:57 Dose: 10 ml Documented by: Spironolactone (Aldactone) 25 mg PO DAILY [facility] Medical Necessity - Tobacco Use Smoking Status: Former smoker Tobacco Use: Non-smoker Assessment/Plan All Active Problems Anemia (Acute) GI bleed (Acute) Ascites (Acute) Abdominal distention (Acute) 83-year-old female with ascites and iron deficiency anemia 1. The patient's hemoglobin appears stable at 8.0. The patient is having ascites and abdominal distention. The patient reports that she is having liquid bowel movements. She has not had any nausea or vomiting. Her repeat CT scan with p.o. and IV contrast showed a possible ileus as well as cholelithiasis. She has ascites in the pelvis and around her liver and spleen. There was no appreciable malignancy. 2. The patient will be getting a paracentesis today and check the fluid for cytology. I will also order CEA and CA 125. Plan for EGD and colonoscopy on Thursday. Bowel prep and n.p.o. on Thursday. Gabriele Lopes MD Pager: [facility] [address] [place] [address], [address] [place] [address] Office:
[2018-12-31 08:07] LABS: International Normalized Ratio 1.4; Prothrombin Time (Protime)PT. 17.1 SECONDS (11.7-14.9)
[2018-12-31 08:08] LABS: Partial Thromboplast Time 37.5 Seconds (24.1-36.2)
[2018-12-31 09:21] VITALS: BP 132/64; PULSE 70; RESP 18; TEMP 36.9; O2SAT 96
[2018-12-31] MEDS: Sertraline 50 MG Tablet 25 MG PO (09:26)
[2018-12-31] MEDS: amLODIPine 5 MG Tablet PO (09:26)
[2018-12-31] MEDS: Furosemide 40 MG Tablet PO (09:27)
[2018-12-31] MEDS: Spironolactone 25 MG Tablet PO (09:27)
--- NOTE | 2018-12-31 10:03 | ECHOD_ITS ---
Reason For Study: MURMUR Procedure This was a 2D Doppler, Color Flow transthoracic echocardiogram. The exam was of adequate technical quality. Exam performed portable in patient room. Left Ventricle Normal LV size. Apical false tendon noted. Left ventricular systolic function is normal. The estimated ejection fraction is 60 %. Septal bounce. There is evidence of diastolic dysfunction. No regional wall motion abnormalities noted. Right Ventricle Normal RV size. Normal systolic function. Atria The left atrium is moderately enlarged. Normal right atrium. No doppler evidence for ASD. Mitral Valve There is no mitral annular calcification. Normal mitral valve. Mild-Moderate (1-2+) mitral valve insufficiency. Tricuspid Valve Normal tricuspid valve. Moderate (2+) eccentric tricuspid valve insufficiency. Right ventricular systolic pressure estimated to be 36 mmHg. Aortic Valve Trisinus/trileaflet aortic valve. Mild diffuse aortic valve thickening. Mild focal aortic valve calcification. Pulmonic Valve The pulmonic valve is not well visualized. Mild (1+) pulmonic valve insufficiency. Great Vessels Normal sized aortic root. Pericardium/Pleural No pericardial effusion. MMode/2D Measurements & Calculations LVIDd: 4.2 cm IVSd: 0.93 cm Ao root diam: 3.5 cm LVIDs: 2.8 cm LVPWd: 1.0 cm RVDd: 3.2 cm FS: 32.6 % LAV(MOD-bp): 81.2 ml LA A4 area: 25.6 cm2 LA dimension(2D): 4.6 cm LAV(MOD-bp) Indexed: 48.7 ml/m2 LAV(MOD-sp2): 71.6 ml LAV(MOD-sp4): 83.0 ml RA A4 area: 12.3 cm2 Time Measurements MV dec time: 0.28 sec Doppler Measurements & Calculations MV E max oliver: 99.3 cm/sec Lat Peak E' Oliver: 7.9 cm/sec Med Peak E' Oliver: 5.4 cm/sec MV A max oliver: 125.7 cm/sec E/E' lat: 12.5 E/E' med: 18.5 MV E/A: 0.79 Ao V2 max: 192.9 cm/sec LV V1 max: 130.8 cm/sec PA V2 max: 143.4 cm/sec Ao max P.9 mmHg LV V1 max P.8 mmHg PI end-d oliver: 125.0 cm/sec TR max oliver: 284.6 cm/sec TR max P.5 mmHg Interpretation Summary Left ventricular systolic function is normal. The estimated ejection fraction is 60 %. Septal bounce. Apical false tendon noted. The left atrium is moderately enlarged. Mild-Moderate (1-2+) mitral valve insufficiency. Moderate (2+) eccentric tricuspid valve insufficiency. Mild diffuse aortic valve thickening. Mild focal aortic valve calcification. Mild (1+) pulmonic valve insufficiency. Right ventricular systolic pressure estimated to be 36 mmHg. There is evidence of diastolic dysfunction. 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 Consider further evaluation with cardiac MRI if clinically indicated. Ordering Physician: Bryn Villasenor Referring Physician: BARNEY PECK Performed By: Bernice Baltazar, CAROLYN, RVT
--- NOTE | 2018-12-31 11:25 | CASEMGMT ---
Addendum entered by Jerome Vallejo 12/31/18 11:58: Pt also has a son. Original Note: RN CM [employer] ATTENDANT CM to room to meet with patient for initial transition planning/care coordination assessment. RN LAWRENCE introduced self and role at [facility]. Pt voices understanding and consents to assessment at this time. Pt resting in bed in no distress at this time. Daughter, Shobha, @ bedside. Pt is A/O at this time and answers all questions appropriately. Care providers, pharmacy, and demographics verified at this time. PCP: Jozef Specialists: denies Preferred Pharmacy: [facility] Insurance: [facility] Prescription Benefit: [employer] Living Will/HPOA: Has both LW and HCPOA, who is her daughter, Shobha. Shobha states she will try to bring paperwork in to be placed in pt's chart. LNOK: , Daughter Living Arrangements: Pt and her live in basement level of their daughter (Shobha) and TEA's home. Stair lift is on the stairs to the basement level. Pt is independent with ADL's and home mgmt tasks. Shobha is available/able to help as needed. Transportation: Pt states drives self and states no transportation concerns at this time. Family able to assist if needed DME: States has the following DME: shower chair, cane, lift chair, medical alert button. Does not have home O2. Pt states no need for further DME at this time. HHC/SNF: No history of either and denies needs. No needs identified at this time. Pt wishes to return home and states has no concerns with going home at time of discharge. CM to follow for home oxygen needs and any further discharge planning/needs. Pt and daughter voice no further concerns/needs at this time. Advised pt and daughter to ask for CM if any further questions/concerns/needs arise. They voice understanding. PLAN: Home w/family support and discharge plans in place. CM to follow for any needs that may arise. Lauren DUMONT RN, CM
--- NOTE | 2018-12-31 14:31 | PN_ITS ---
<Bryn Villasenor - Last Filed: 12/31/18 14:31> Patient Problems: Active and Suspected Problems Anemia (Acute) GI bleed (Acute) Ascites (Acute) Abdominal distention (Acute) Subjective: Ongoing distention. No paracentesis 2/2 not enough fluid to tap. Denies hx liver dz. Prior smoker. Denies hx chronic lung disease. She does have SOB. No LE edema. Hypoxia last night, now on 2lpm. No cough. No fever/chills. - Physical Exam Vitals/I&O's: Vital Signs Temp Pulse Resp BP Pulse Ox 98.4 F 70 18 132/64 H 96 12/31/18 09:21 12/31/18 09:21 12/31/18 09:21 12/31/18 09:21 12/31/18 09:21 Oxygen Flow Rate (L/min) 2 Oxygen Delivery Method Nasal Cannula Weight: 145 lb 4.554 oz Body Mass Index (BMI) 26.5 Intake and Output for Last 24 Hours 12/29/18 12/30/18 12/31/18 23:59 23:59 23:59 Intake Total 760.25 / 880.25 728.75 / 728.75 Balance 760.25 / 880.25 728.75 / 728.75 General: Alert, Oriented x3, Cooperative HEENT: Atraumatic, PERRLA, EOMI, Normocephalic Neck: Supple, No JVD, Negative Carotid Bruits Lungs: Diminished, Rales - fine rales throughout BL. Cardiovascular: Regular rate, No murmurs Abdomen: Bowel Sounds Present, Soft, Non Tender, Distended Extremities: No edema, Capillary Refill Less than 3 Seconds Skin: No rashes, No breakdown Musculoskeletal: No Tenderness to Palpation of Joints or Extremities Neurological: Cranial nerves II-XII grossly intact Psych/Mental Status: Normal Affect, Appropriate, Alert and oriented to time, place, person, mood and affect Microbiology Past 72 Hours 12/30/18 14:20 Stool Stool Occult Blood ([facility]ALTER) - Final Occult Blood Positive Laboratory Results 12/30/18 12:25: Iron 15 L, TIBC 364, Iron Saturation 4.1 L 12/30/18 18:30: PT 16.4 H, INR 1.3, APTT 31.7 12/31/18 05:50: WBC 4.6, RBC 3.63 L, Hgb 8.0 L, Hct 27.1 L, MCV 74.7 L, MCH 22.0 L, MCHC 29.5 L, RDW Std Deviation 51.8 H, RDW Coeff of Kerri 19.2 H, Plt Count 130 L, MPV 10.0, Immature Gran % (Auto) 0.400, Neut % (Auto) 78.2 H, Lymph % (Auto) 8.5 L, Tompkins % (Auto) 9.2, Eos % (Auto) 2.6, Baso % (Auto) 1.1 H, Absolute Neuts (auto) 3.6, Absolute Lymphs (auto) 0.39 L, Nucleated RBC % 0, Differential Comment 12/31/18 05:50: Sodium 142, Potassium 3.5, Chloride 105, Carbon Dioxide 28.0, Anion Gap 9, BUN 7, Creatinine 0.57, Estim Creat Clear Calc 34.90, Est GFR (MDRD) Af Amer 130, Est GFR (MDRD) Non-Af 108, BUN/Creatinine Ratio 12.2, Glucose 105, Calcium 7.8 L, Lactate Dehydrogenase 182 12/31/18 05:50: PT 17.1 H, INR 1.4, APTT 37.5 H 12/31/18 08:15: Carcinoembryonic Ag Pending, CA 125 Antigen Pending Current Medications Acetaminophen (Tylenol) 650 mg PO Q6H PRN PRN PRN Reason: Pain Score 1-3/Temp > 100.7 F Albuterol/Ipratropium (Duoneb) 3 ml INHALATION Q6HWA.RT [facility] Last Admin: 12/31/18 14:03 Dose: Not Given Documented by: Amlodipine Besylate (Norvasc) 5 mg PO DAILY [facility] Last Admin: 12/31/18 09:26 Dose: 5 mg Documented by: Furosemide (Lasix) 40 mg PO DAILY [facility] Last Admin: 12/31/18 09:27 Dose: 40 mg Documented by: Heparin Sodium (Porcine) (Heparin Na) 5,000 unit SC Q12 [facility] Last Admin: 12/31/18 09:27 Dose: Not Given Documented by: Sodium Chloride () 500 mls @ 15 mls/hr IV PRN PRN PRN Reason: Blood Transfusion Sodium Chloride () 250 mls @ 15 mls/hr IV .[id number] PRN PRN Reason: Saline Flush Last Infusion: 12/31/18 10:15 Dose: Infused Documented by: Potassium Chloride (K-Dur) 20 meq PO BIDCM [facility] Pravastatin Sodium (Pravachol) 40 mg PO QHS [facility] Last Admin: 12/30/18 20:04 Dose: 40 mg Documented by: Sertraline HCl (Zoloft) 25 mg PO DAILY [facility] Last Admin: 12/31/18 09:26 Dose: 25 mg Documented by: Sodium Chloride () 10 - 40 ml IV UD PRN PRN Reason: SALINE FLUSH Last Admin: 12/30/18 19:57 Dose: 10 ml Documented by: Spironolactone (Aldactone) 25 mg PO DAILY [facility] Last Admin: 12/31/18 09:27 Dose: 25 mg Documented by: Medical Necessity - Tobacco Use Smoking Status: Former smoker Tobacco Use: Non-smoker Assessment/Plan All Active Problems Anemia (Acute) GI bleed (Acute) Ascites (Acute) Abdominal distention (Acute) 1. Ascites unclear etiology - no tap due to not enough fluid. Continue po lasix/aldactone. Monitor I/O. Pulmonary fibrosis on CT abdomen. Concern for pulmonary hypertension heart failure. Obtain echocardiogram. LFTs are normal. BNP mildly elevated. 2. 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 Patient does not know why she was taking this states she was recently put on a prior PCP for unclear reasons. Surgery is following, plan for upper and lower endoscopy. She has not received blood. She is microcytic with decreased iron and iron saturation, normal TIBC. She is receiving Venofer and will be started on oral iron. Carcinoembryonic antigen and Ca1 25 are pending. 3. Hypokalemia-resolved. 4. Pulmonary fibrosis-echo pending. Aerosols added. Incentive spirometer. Needs referral to pulmonology as an outpatient. 5. Mild thrombocytopenia-trend. 6. hx nicotine abuse 7. Depression - zoloft. 8. htn - stable DVT prophylaxis: SCDs Discharge planning-patient needs endoscopy per general surgery prior to discharge. This patient was seen by Bryn Villasenor PA-C under the supervision of Doctor Harley. <Monique Harley - Last Filed: 12/31/18 17:43> - Physical Exam Vitals/I&O's: Vital Signs Temp Pulse Resp BP Pulse Ox 97.9 F 72 16 133/71 H 93 12/31/18 14:58 12/31/18 14:58 12/31/18 14:58 12/31/18 14:58 12/31/18 14:58 Oxygen Flow Rate (L/min) 2 Oxygen Delivery Method Room Air Weight: 65.9 kg Body Mass Index (BMI) 26.5 Intake and Output for Last 24 Hours 12/29/18 12/30/18 12/31/18 23:59 23:59 23:59 Intake Total 760.25 / 880.25 728.75 / 728.75 Balance 760.25 / 880.25 728.75 / 728.75 Microbiology Past 72 Hours 12/30/18 14:20 Stool Stool Occult Blood ([facility]) - Final Occult Blood Positive Laboratory Results 12/30/18 18:30: PT 16.4 H, INR 1.3, APTT 31.7 12/31/18 05:50: WBC 4.6, RBC 3.63 L, Hgb 8.0 L, Hct 27.1 L, MCV 74.7 L, MCH 22.0 L, MCHC 29.5 L, RDW Std Deviation 51.8 H, RDW Coeff of Kerri 19.2 H, Plt Count 130 L, MPV 10.0, Immature Gran % (Auto) 0.400, Neut % (Auto) 78.2 H, Lymph % (Auto) 8.5 L, Tompkins % (Auto) 9.2, Eos % (Auto) 2.6, Baso % (Auto) 1.1 H, Absolute Neuts (auto) 3.6, Absolute Lymphs (auto) 0.39 L, Nucleated RBC % 0, Differential Comment 12/31/18 05:50: Sodium 142, Potassium 3.5, Chloride 105, Carbon Dioxide 28.0, Anion Gap 9, BUN 7, Creatinine 0.57, Estim Creat Clear Calc 34.90, Est GFR (MDRD) Af Amer 130, Est GFR (MDRD) Non-Af 108, BUN/Creatinine Ratio 12.2, Glucose 105, Calcium 7.8 L, Lactate Dehydrogenase 182 12/31/18 05:50: PT 17.1 H, INR 1.4, APTT 37.5 H 12/31/18 08:15: Carcinoembryonic Ag Pending, CA 125 Antigen Pending Current Medications Acetaminophen (Tylenol) 650 mg PO Q6H PRN PRN PRN Reason: Pain Score 1-3/Temp > 100.7 F Albuterol/Ipratropium (Duoneb) 3 ml INHALATION Q6HWA.RT [facility] Last Admin: 12/31/18 14:03 Dose: Not Given Documented by: Amlodipine Besylate (Norvasc) 5 mg PO DAILY [facility] Last Admin: 12/31/18 09:26 Dose: 5 mg Documented by: Furosemide (Lasix) 40 mg PO DAILY [facility] Last Admin: 12/31/18 09:27 Dose: 40 mg Documented by: Sodium Chloride () 500 mls @ 15 mls/hr IV PRN PRN PRN Reason: Blood Transfusion Sodium Chloride () 250 mls @ 15 mls/hr IV .[id number] PRN PRN Reason: Saline Flush Last Infusion: 12/31/18 10:15 Dose: Infused Documented by: Potassium Chloride (K-Dur) 20 meq PO BIDCM [facility] Last Admin: 12/31/18 17:12 Dose: 20 meq Documented by: Pravastatin Sodium (Pravachol) 40 mg PO QHS [facility] Last Admin: 12/30/18 20:04 Dose: 40 mg Documented by: Sertraline HCl (Zoloft) 25 mg PO DAILY [facility] Last Admin: 12/31/18 09:26 Dose: 25 mg Documented by: Sodium Chloride () 10 - 40 ml IV UD PRN PRN Reason: SALINE FLUSH Last Admin: 12/30/18 19:57 Dose: 10 ml Documented by: Spironolactone (Aldactone) 25 mg PO DAILY [facility] Last Admin: 12/31/18 09:27 Dose: 25 mg Documented by: Assessment/Plan This patient was seen in conjunction with JAKE Alfaro. I have independently interviewed and examined the patient and reviewed pertinent historical, laboratory, and other data. Please refer to JAKE Alfaro note for his patient's presentation, findings, and recommendations. I have reviewed and his note and concur with his documentation Patient was seen and examined. No new complaints. Denies any chest pain or dizziness. Started on Lasix and Aldactone with potassium supplementation Physical Exam: General: Alert, Oriented x3, Cooperative HEENT: Atraumatic, PERRLA, EOMI, Normocephalic Neck: Supple, No JVD, Negative Carotid Bruits Lungs: Diminished, Rales - fine rales throughout BL. Cardiovascular: Regular rate, No murmurs Abdomen: Bowel Sounds Present, Soft, Non Tender, Distended Extremities: No edema, Capillary Refill Less than 3 Seconds Skin: No rashes, No breakdown Musculoskeletal: No Tenderness to Palpation of Joints or Extremities Neurological: Cranial nerves II-XII grossly intact Psych/Mental Status: Normal Affect, Appropriate, Alert and oriented to time, place, person, mood and affect ASSESSMENT: 1. Possible GI bleed, FOBT positive, history of chronic blood loss anemia 2. Ascites, unclear etiology 3. Hypokalemia 4. Pulmonary fibrosis 5. Thrombocytopenia 6. Nicotine dependence 7. Hypertension 8. Depression Plan: Continue to monitor Continue Lasix, Aldactone, potassium Labs in a.m. Endoscopy planned for Thursday Code Visit Inpatient E&M: 77091 Subs Hosp L2
[2018-12-31 14:58] VITALS: BP 133/71; PULSE 72; RESP 16; TEMP 36.6; O2SAT 93
--- NOTE | 2018-12-31 18:02 | US_ITS ---
STUDY: ABDOMINAL ULTRASOUND -4 quadrants. REASON FOR VISIT: Female, 83 years old ascites and possible paracentesis. TECHNIQUE: Ultrasound evaluation of the right upper quadrant was performed with real-time and static rodriguez-scale imaging. TECHNICAL QUALITY: Adequate. COMPARISON: None. FINDINGS: The 4 quadrants of the abdomen and pelvis were assessed for ascites. Small amount of fluid is seen in the right and left lower quadrants. There is not enough fluid for safe paracentesis. US/Abdomen Limited IMPRESSION: Not enough fluid for safe paracentesis. Electronically Signed: Kamaljit Logan, at 13:31 EST , Service support ,
[2018-12-31 19:05] VITALS: PULSE 66; RESP 18
[2018-12-31] MEDS: Ipratropium/Albuterol Sulfate 3 ML AMPUL.NEB INHALATION (19:05)
[2018-12-31 20:21] VITALS: BP 120/56; PULSE 66; RESP 16; TEMP 36.6; O2SAT 92
[2018-12-31] MEDS: Pravastatin 40 MG Tablet PO (22:02)
[2019-01-01] VITALS (10 sets, daily range): BP systolic 109–142; BP diastolic 46–60; PULSE 60–83; RESP 12–20; TEMP 36.6–37; O2SAT 92–96
[2019-01-01] MEDS: Ipratropium/Albuterol Sulfate 3 ML AMPUL.NEB INHALATION ×2 (07:11→18:51)
[2019-01-01 07:17] LABS: Absolute Lymphocyte Count 0.86 X10^3/uL (0.83-4.51); Absolute Neutrophil Count 1.8 X10^3/uL (2.0-7.7); Basophil# 0.07 X10^3/uL; Basophil% 2.1 % (0-1); Hematocrit 26.7 % (37-47); Lymphocyte # 0.86 X10^3/ul (4.0); Lymphocyte % 26.1 % (19-41); Mean Corpuscular Hgb 22.3 pg (27.0-32.0); Mean Corpuscular Volume 74.6 fL (81-99); Monocyte# 0.49 X10^3/uL; Monocyte% 14.8 % (0-10); NRBC Flagged by Analyzer 0 % (0-5); Neutrophil # 1.77 X10^3/uL (2.7-7.7); Neutrophil % 53.7 % (47-70); Platelet Count 157 K/mm3 (150-450); RBC Distribution Width CV 19.1 % (11.6-14.6); RBC Distribution Width SD 51.8 fl (35.1-43.9); Red Blood Count 3.58 M/mm3 (4.2-5.4); White Blood Count 3.3 K/mm3 (4.4-11.0)
[2019-01-01 07:47] LABS: ALB/GLOB Ratio 0.5 RATIO (0.9-2.4); AST(SGOT) 27 U/L (15-37); Alanine Aminotransfer ALT/SGPT 20 U/L (13-56); Albumin, Serum 2.4 g/dL (3.2-5.0); Alkaline Phosphatase 92 U/L (45-117); Anion Gap 8 (5-15); BUN 5 mg/dL (7-18); Chloride 105 mmol/L (98-107); Creatinine, Serum 0.63 mg/dL (0.55-1.02); EST Glomerular Filtration Rate 97 mL/min (>60); Est Glom Filt Rate - Afr Amer 117 mL/min (>60); Globulin 4.4 g/dL (2.2-4.2); Glucose 95 mg/dL (74-106); Potassium 4.1 mmol/L (3.5-5.1); Protein, Total 6.8 g/dL (6.4-8.2); Sodium Level 140 mmol/L (136-145)
--- NOTE | 2019-01-01 09:16 | PN.SURG_ITS ---
Patient Problems: Active and Suspected Problems Anemia (Acute) GI bleed (Acute) Ascites (Acute) Abdominal distention (Acute) Subjective: Patient still complaining of abdominal distention. She has had some flatus reported bowel movements yesterday. She does not feel nauseated. She is ambulating in her room without difficulty. Objective: M is distended but soft no rebound guarding or peritoneal signs are identified - Physical Exam Vitals/I&O's: Vital Signs Temp Pulse Resp BP Pulse Ox 98.3 F 83 18 139/60 H 94 01/01/19 08:39 01/01/19 08:39 01/01/19 08:39 01/01/19 08:39 01/01/19 08:39 Oxygen Flow Rate (L/min) 2 Oxygen Delivery Method Room Air Weight: 145 lb 4.554 oz Body Mass Index (BMI) 26.5 Intake and Output for Last 24 Hours 12/30/18 12/31/18 01/01/19 23:59 23:59 23:59 Intake Total 760.25 / 880.25 2428.75 / 3128.75 1000 / 1000 Output Total 800 / 1300 900 / 900 Balance 760.25 / 880.25 1628.75 / 1828.75 100 / 100 Microbiology Past 72 Hours 12/30/18 14:20 Stool Stool Occult Blood ([facility]ALTER) - Final Occult Blood Positive Laboratory Results 01/01/19 06:52: WBC 3.3 L, RBC 3.58 L, Hgb 8.0 L, Hct 26.7 L, MCV 74.6 L, MCH 22.3 L, MCHC 30.0 L, RDW Std Deviation 51.8 H, RDW Coeff of Kerri 19.1 H, Plt Count 157, MPV 10.0, Immature Gran % (Auto) 0.300, Neut % (Auto) 53.7, Lymph % (Auto) 26.1, Mason % (Auto) 14.8 H, Eos % (Auto) 3.0, Baso % (Auto) 2.1 H, Absolute Neuts (auto) 1.8 L, Absolute Lymphs (auto) 0.86, Nucleated RBC % 0 01/01/19 06:52: Sodium 140, Potassium 4.1, Chloride 105, Carbon Dioxide 27.0, Anion Gap 8, BUN 5 L, Creatinine 0.63, Estim Creat Clear Calc 34.90, Est GFR (MDRD) Af Amer 117, Est GFR (MDRD) Non-Af 97, BUN/Creatinine Ratio 8.0 L, Glucose 95, Calcium 8.0 L, Total Bilirubin 0.50, AST 27, ALT 20, Alkaline Phosphatase 92, Total Protein 6.8, Albumin 2.4 L, Globulin 4.4 H, Albumin/Globulin Ratio 0.5 L Current Medications Acetaminophen (Tylenol) 650 mg PO Q6H PRN PRN PRN Reason: Pain Score 1-3/Temp > 100.7 F Albuterol/Ipratropium (Duoneb) 3 ml INHALATION Q6HWA.RT [facility] Last Admin: 01/01/19 07:11 Dose: 3 ml Documented by: Amlodipine Besylate (Norvasc) 5 mg PO DAILY [facility] Last Admin: 12/31/18 09:26 Dose: 5 mg Documented by: Bisacodyl (Dulcolax) 20 mg PO 1200 [facility] Stop: 01/02/19 12:01 Furosemide (Lasix) 40 mg PO DAILY [facility] Last Admin: 12/31/18 09:27 Dose: 40 mg Documented by: Sodium Chloride () 500 mls @ 15 mls/hr IV PRN PRN PRN Reason: Blood Transfusion Sodium Chloride () 250 mls @ 15 mls/hr IV .[id number] PRN PRN Reason: Saline Flush Last Infusion: 12/31/18 10:15 Dose: Infused Documented by: Iron Sucrose 200 mg/ Sodium (Chloride) 110 mls @ 220 mls/hr IV X1 ONE Stop: 01/01/19 09:34 Polyethylene Glycol (Clearlax For Bowel Prep) 0 bottle PO DAILY@1600 [facility] Stop: 01/02/19 16:01 Potassium Chloride (K-Dur) 20 meq PO BIDCM [facility] Last Admin: 12/31/18 17:12 Dose: 20 meq Documented by: Pravastatin Sodium (Pravachol) 40 mg PO QHS [facility] Last Admin: 12/31/18 22:02 Dose: 40 mg Documented by: Sertraline HCl (Zoloft) 25 mg PO DAILY [facility] Last Admin: 12/31/18 09:26 Dose: 25 mg Documented by: Sodium Chloride () 10 - 40 ml IV UD PRN PRN Reason: SALINE FLUSH Last Admin: 12/30/18 19:57 Dose: 10 ml Documented by: Spironolactone (Aldactone) 25 mg PO DAILY [facility] Last Admin: 12/31/18 09:27 Dose: 25 mg Documented by: Medical Necessity - Tobacco Use Smoking Status: Former smoker Tobacco Use: Non-smoker Assessment/Plan All Active Problems Anemia (Acute) GI bleed (Acute) Ascites (Acute) Abdominal distention (Acute) Hemoglobin is stable at 8. Plan is still for her to undergo endoscopies on Thursday.
[2019-01-01] MEDS: Acetaminophen 325 MG Tablet 650 MG PO (09:50)
[2019-01-01] MEDS: Furosemide 40 MG Tablet PO (09:51)
[2019-01-01] MEDS: Spironolactone 25 MG Tablet PO (09:51)
[2019-01-01] MEDS: amLODIPine 5 MG Tablet PO (09:51)
[2019-01-01] MEDS: Sertraline 50 MG Tablet 25 MG PO (09:57)
--- NOTE | 2019-01-01 12:37 | PN_ITS ---
<Bryn Villasenor - Last Filed: 01/01/19 12:37> Patient Problems: Active and Suspected Problems Anemia (Acute) GI bleed (Acute) Ascites (Acute) Abdominal distention (Acute) Subjective: This morning she feels improved, she has no shortness of breath, no abdominal pain, no lightheadedness or dizziness at rest or with standing and walking. She had 2 bowel movements last night both were brown. No blood or black stools. No fevers or chills. Her shortness of breath has improved and she has been weaned off oxygen. - Physical Exam Vitals/I&O's: Vital Signs Temp Pulse Resp BP Pulse Ox 98.3 F 80 18 139/60 H 94 01/01/19 08:39 01/01/19 10:00 01/01/19 08:39 01/01/19 08:39 01/01/19 08:39 Oxygen Flow Rate (L/min) 2 Oxygen Delivery Method Room Air Weight: 145 lb 4.554 oz Body Mass Index (BMI) 26.5 Intake and Output for Last 24 Hours 12/30/18 12/31/18 01/01/19 23:59 23:59 23:59 Intake Total 760.25 / 880.25 2428.75 / 3128.75 1110 / 1110 Output Total 800 / 1300 900 / 900 Balance 760.25 / 880.25 1628.75 / 1828.75 210 / 210 General: Alert, Oriented x3, Cooperative HEENT: Atraumatic, PERRLA, EOMI, Normocephalic Neck: Supple, No JVD, Negative Carotid Bruits Lungs: Normal air movement, No rales - fine rales throughout Cardiovascular: Regular rate, No murmurs Abdomen: Bowel Sounds Present, Soft, Non Tender Extremities: No edema, Capillary Refill Less than 3 Seconds Skin: No rashes, No breakdown Musculoskeletal: No Tenderness to Palpation of Joints or Extremities Neurological: Cranial nerves II-XII grossly intact Psych/Mental Status: Normal Affect, Appropriate, Alert and oriented to time, place, person, mood and affect Microbiology Past 72 Hours 12/30/18 14:20 Stool Stool Occult Blood (WALTER) - Final Occult Blood Positive Laboratory Results 01/01/19 06:52: WBC 3.3 L, RBC 3.58 L, Hgb 8.0 L, Hct 26.7 L, MCV 74.6 L, MCH 22.3 L, MCHC 30.0 L, RDW Std Deviation 51.8 H, RDW Coeff of Kerri 19.1 H, Plt Count 157, MPV 10.0, Immature Gran % (Auto) 0.300, Neut % (Auto) 53.7, Lymph % (Auto) 26.1, Coles % (Auto) 14.8 H, Eos % (Auto) 3.0, Baso % (Auto) 2.1 H, Absolute Neuts (auto) 1.8 L, Absolute Lymphs (auto) 0.86, Nucleated RBC % 0 01/01/19 06:52: Sodium 140, Potassium 4.1, Chloride 105, Carbon Dioxide 27.0, Anion Gap 8, BUN 5 L, Creatinine 0.63, Estim Creat Clear Calc 34.90, Est GFR (MDRD) Af Amer 117, Est GFR (MDRD) Non-Af 97, BUN/Creatinine Ratio 8.0 L, Glucose 95, Calcium 8.0 L, Total Bilirubin 0.50, AST 27, ALT 20, Alkaline Phosphatase 92, Total Protein 6.8, Albumin 2.4 L, Globulin 4.4 H, Albumin/Globulin Ratio 0.5 L Current Medications Acetaminophen (Tylenol) 650 mg PO Q6H PRN PRN PRN Reason: Pain Score 1-3/Temp > 100.7 F Last Admin: 01/01/19 09:50 Dose: 650 mg Documented by: Albuterol/Ipratropium (Duoneb) 3 ml INHALATION Q6HWA.RT [facility] Last Admin: 01/01/19 07:11 Dose: 3 ml Documented by: Amlodipine Besylate (Norvasc) 5 mg PO DAILY [facility] Last Admin: 01/01/19 09:51 Dose: 5 mg Documented by: Bisacodyl (Dulcolax) 20 mg PO 1200 [facility] Stop: 01/02/19 12:01 Furosemide (Lasix) 40 mg PO DAILY [facility] Last Admin: 01/01/19 09:51 Dose: 40 mg Documented by: Sodium Chloride () 500 mls @ 15 mls/hr IV PRN PRN PRN Reason: Blood Transfusion Sodium Chloride () 250 mls @ 15 mls/hr IV .[id number] PRN PRN Reason: Saline Flush Last Infusion: 12/31/18 10:15 Dose: Infused Documented by: Polyethylene Glycol (Clearlax For Bowel Prep) 0 bottle PO DAILY@1600 [facility] Stop: 01/02/19 16:01 Potassium Chloride (K-Dur) 20 meq PO BIDCM [facility] Last Admin: 01/01/19 09:49 Dose: 20 meq Documented by: Pravastatin Sodium (Pravachol) 40 mg PO QHS [facility] Last Admin: 12/31/18 22:02 Dose: 40 mg Documented by: Sertraline HCl (Zoloft) 25 mg PO DAILY [facility] Last Admin: 01/01/19 09:57 Dose: 25 mg Documented by: Sodium Chloride () 10 - 40 ml IV UD PRN PRN Reason: SALINE FLUSH Last Admin: 12/30/18 19:57 Dose: 10 ml Documented by: Spironolactone (Aldactone) 25 mg PO DAILY [facility] Last Admin: 01/01/19 09:51 Dose: 25 mg Documented by: Medical Necessity - Tobacco Use Smoking Status: Former smoker Tobacco Use: Non-smoker Assessment/Plan All Active Problems Anemia (Acute) GI bleed (Acute) Ascites (Acute) Abdominal distention (Acute) 1. Ascites unclear etiology - no tap due to not enough fluid. Continue po lasix/aldactone. Monitor I/O. No masses on CT abdomen. Concern for pulmonary hypertension / heart failure. LFTs are normal. BNP mildly elevated. CEA/CA125 pending. -Echocardiogram demonstrates normal LV systolic function, 60% EF, septal bounce, apical false tendon, moderately enlarged left atrium, 1-2+ MVI, 2+ TVI, 1+ PVI, aortic valve thickening and calcification, RVSP of 36 mmHg, diastolic dysfunction. 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 2. 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 Patient does not know why she was taking this states she was recently put on a prior PCP for unclear reasons. Surgery is following, plan for upper and lower endoscopy. She has not received blood. She is microcytic with decreased iron and iron saturation, normal TIBC. She is receiving 2nd dose of venofer and will be started on oral iron when appropriate. Carcinoembryonic antigen and Ca1 25 are pending. LDH normal. -EGD/Colon Thursday. -Hgb no change -2 brown BMs overnight 3. Hypokalemia-resolved. 4. Pulmonary fibrosis - echo as above. Pulm fibrosis possibly contributing to cardiomyopathy/right heart failure/cor pulmonale/ascites. Aerosols added. Incentive spirometer. Needs referral to pulmonology as an outpatient. Off o2. 5. Mild thrombocytopenia-improved. 6. hx nicotine abuse 7. Depression - zoloft. 8. htn - stable DVT prophylaxis: SCDs Discharge planning-patient needs endoscopy per general surgery prior to discharge. Needs walking pulse ox prior to DC. Pulm referral at [place]. This patient was seen by Bryn Villasenor PA-C under the supervision of Doctor Cricket. <Monique Harley - Last Filed: 01/01/19 14:00> - Physical Exam Vitals/I&O's: Vital Signs Temp Pulse Resp BP Pulse Ox 98 F 69 20 H 126/55 H 96 01/01/19 13:31 01/01/19 13:31 01/01/19 13:31 01/01/19 13:31 01/01/19 13:31 Oxygen Flow Rate (L/min) 2 Oxygen Delivery Method Room Air Weight: 65.9 kg Body Mass Index (BMI) 26.5 Intake and Output for Last 24 Hours 12/30/18 12/31/18 01/01/19 23:59 23:59 23:59 Intake Total 760.25 / 880.25 2428.75 / 3128.75 1860 / 1860 Output Total 800 / 1300 1400 / 1400 Balance 760.25 / 880.25 1628.75 / 1828.75 460 / 460 Microbiology Past 72 Hours 12/30/18 14:20 Stool Stool Occult Blood ([facility]TER) - Final Occult Blood Positive Laboratory Results 01/01/19 06:52: WBC 3.3 L, RBC 3.58 L, Hgb 8.0 L, Hct 26.7 L, MCV 74.6 L, MCH 22.3 L, MCHC 30.0 L, RDW Std Deviation 51.8 H, RDW Coeff of Kerri 19.1 H, Plt Count 157, MPV 10.0, Immature Gran % (Auto) 0.300, Neut % (Auto) 53.7, Lymph % (Auto) 26.1, Coles % (Auto) 14.8 H, Eos % (Auto) 3.0, Baso % (Auto) 2.1 H, Absolute Neuts (auto) 1.8 L, Absolute Lymphs (auto) 0.86, Nucleated RBC % 0 01/01/19 06:52: Sodium 140, Potassium 4.1, Chloride 105, Carbon Dioxide 27.0, Anion Gap 8, BUN 5 L, Creatinine 0.63, Estim Creat Clear Calc 34.90, Est GFR (MDRD) Af Amer 117, Est GFR (MDRD) Non-Af 97, BUN/Creatinine Ratio 8.0 L, Glucose 95, Calcium 8.0 L, Total Bilirubin 0.50, AST 27, ALT 20, Alkaline Phosphatase 92, Total Protein 6.8, Albumin 2.4 L, Globulin 4.4 H, Albumin/Globulin Ratio 0.5 L Current Medications Acetaminophen (Tylenol) 650 mg PO Q6H PRN PRN PRN Reason: Pain Score 1-3/Temp > 100.7 F Last Admin: 01/01/19 09:50 Dose: 650 mg Documented by: Albuterol/Ipratropium (Duoneb) 3 ml INHALATION Q6HWA.RT [facility] Last Admin: 01/01/19 13:00 Dose: Not Given Documented by: Amlodipine Besylate (Norvasc) 5 mg PO DAILY [facility] Last Admin: 01/01/19 09:51 Dose: 5 mg Documented by: Bisacodyl (Dulcolax) 20 mg PO 1200 [facility] Stop: 01/02/19 12:01 Furosemide (Lasix) 40 mg PO DAILY [facility] Last Admin: 01/01/19 09:51 Dose: 40 mg Documented by: Sodium Chloride () 500 mls @ 15 mls/hr IV PRN PRN PRN Reason: Blood Transfusion Sodium Chloride () 250 mls @ 15 mls/hr IV .[id number] PRN PRN Reason: Saline Flush Last Infusion: 12/31/18 10:15 Dose: Infused Documented by: Polyethylene Glycol (Clearlax For Bowel Prep) 0 bottle PO DAILY@1600 [facility] Stop: 01/02/19 16:01 Potassium Chloride (K-Dur) 20 meq PO BIDCM [facility] Last Admin: 01/01/19 09:49 Dose: 20 meq Documented by: Pravastatin Sodium (Pravachol) 40 mg PO QHS [facility] Last Admin: 12/31/18 22:02 Dose: 40 mg Documented by: Sertraline HCl (Zoloft) 25 mg PO DAILY [facility] Last Admin: 01/01/19 09:57 Dose: 25 mg Documented by: Sodium Chloride () 10 - 40 ml IV UD PRN PRN Reason: SALINE FLUSH Last Admin: 12/30/18 19:57 Dose: 10 ml Documented by: Spironolactone (Aldactone) 25 mg PO DAILY [facility] Last Admin: 01/01/19 09:51 Dose: 25 mg Documented by: Assessment/Plan This patient was seen in conjunction with JAKE Alfaro. I have independently interviewed and examined the patient and reviewed pertinent historical, laboratory, and other data. Please refer to JAKE Alfaro note for his patient's presentation, findings, and recommendations. I have reviewed and his note and concur with his documentation Patient was seen and examined. No new complaints. No acute events overnight. No more bleeding per rectum. Abdomen is still distended. Denies any chest pain or dizziness. Physical Exam: General: Alert, Oriented x3, Cooperative HEENT: Atraumatic, PERRLA, EOMI, Normocephalic Neck: Supple, No JVD, Negative Carotid Bruits Lungs: Diminished, Rales - fine rales throughout BL. Cardiovascular: Regular rate, No murmurs Abdomen: Bowel Sounds Present, Soft, Non Tender, Distended Extremities: No edema, Capillary Refill Less than 3 Seconds Skin: No rashes, No breakdown Musculoskeletal: No Tenderness to Palpation of Joints or Extremities Neurological: Cranial nerves II-XII grossly intact Psych/Mental Status: Normal Affect, Appropriate, Alert and oriented to time, place, person, mood and affect ASSESSMENT: 1. Possible GI bleed, FOBT positive, history of chronic blood loss anemia 2. Ascites, unclear etiology 3. Hypokalemia 4. Pulmonary fibrosis 5. Thrombocytopenia 6. Nicotine dependence 7. Hypertension 8. Depression Plan: Continue to monitor Continue Lasix, Aldactone, potassium Labs in a.m. Endoscopy planned for Thursday Code Visit Inpatient E&M: [id number] [facility] Hosp L2
[2019-01-01] MEDS: 0.9% Saline Lock 10 ML Syringe IV (20:06)
[2019-01-01] MEDS: Pravastatin 40 MG Tablet PO (21:38)
--- NOTE | 2019-01-01 22:19 | NURSING ---
Report given to IVAN Mccord who will now take over care of this patient at this time.
[2019-01-02] VITALS (7 sets, daily range): BP systolic 115–146; BP diastolic 46–65; PULSE 68–89; RESP 12–18; TEMP 36.6–37; O2SAT 92–95; BMI 26.5
[2019-01-02 06:45] LABS: Absolute Lymphocyte Count 0.65 X10^3/uL (0.83-4.51); Absolute Neutrophil Count 2.4 X10^3/uL (2.0-7.7); Basophil# 0.04 X10^3/uL; Basophil% 1.1 % (0-1); Eosinophil# 0.16 X10^3/uL; Eosinophils% 4.3 % (0-5); Hematocrit 26.2 % (37-47); Hemoglobin 7.7 g/dL (12.0-15.0); Lymphocyte # 0.65 X10^3/ul (4.0); Lymphocyte % 17.5 % (19-41); Mean Corp Hgb Conc 29.4 g/dL (32-36); Mean Corpuscular Hgb 21.9 pg (27.0-32.0); Mean Corpuscular Volume 74.4 fL (81-99); Mean Platelet Vol. 10.2 fl (6.2-12.0); Monocyte% 13.4 % (0-10); NRBC Flagged by Analyzer 0 % (0-5); Neutrophil # 2.35 X10^3/uL (2.7-7.7); Neutrophil % 63.2 % (47-70); Platelet Count 160 K/mm3 (150-450); RBC Distribution Width CV 19.6 % (11.6-14.6); RBC Distribution Width SD 52.2 fl (35.1-43.9); Red Blood Count 3.52 M/mm3 (4.2-5.4); White Blood Count 3.7 K/mm3 (4.4-11.0)
[2019-01-02] MEDS: Ipratropium/Albuterol Sulfate 3 ML AMPUL.NEB INHALATION ×2 (07:42→13:12)
[2019-01-02] MEDS: Spironolactone 25 MG Tablet PO (08:43)
[2019-01-02] MEDS: Furosemide 40 MG Tablet PO (08:43)
[2019-01-02] MEDS: amLODIPine 5 MG Tablet PO (08:44)
[2019-01-02] MEDS: Sertraline 50 MG Tablet 25 MG PO (08:44)
--- NOTE | 2019-01-02 11:59 | PCM.PN.SRG ---
Patient Problems: Active and Suspected Problems Anemia (Acute) GI bleed (Acute) Ascites (Acute) Abdominal distention (Acute) Subjective: No complaints at this time. Objective: Diminished soft - Physical Exam Vitals/I&O's: Vital Signs Temp Pulse Resp BP Pulse Ox 97.9 F 89 16 135/63 H 92 01/02/19 08:41 01/02/19 08:55 01/02/19 08:41 01/02/19 08:55 01/02/19 08:41 Oxygen Flow Rate (L/min) 2 Oxygen Delivery Method Room Air Weight: 145 lb 4.554 oz Body Mass Index (BMI) 26.5 Orthostatic Vital Signs Start: 01/02/19 08:55 Freq: q24h Status: Active Protocol: Activity Type Activity Date Activity User E-Sign Co-Sign Detail Recorded Client Recorded Date Recorded By Document 01/02/19 08:55 MLB [id number] 01/02/19 08:58 MLB 01/02/19 08:55 Orthostatic Vitals Standing -Blood Pressure (90/60-120/80) 139/62 H -Extremity Use Left Arm -Pulse Rate (60-100) 86 Sitting -Blood Pressure (90/60-120/80) 143/63 H -Extremity Use Left Arm -Pulse Rate (60-100) 89 Lying -Blood Pressure (90/60-120/80) 135/63 H -Extremity Use Left Arm -Pulse Rate (60-100) 89 Intake and Output for Last 24 Hours 12/31/18 01/01/19 01/02/19 23:59 23:59 23:59 Intake Total 2428.75 / 3128.75 1860 / 1860 110 / 110 Output Total 800 / 1300 1400 / 1800 700 / 700 Balance 1628.75 / 1828.75 460 / 60 -590 / -590 Microbiology Past 72 Hours 12/30/18 14:20 Stool Stool Occult Blood (WALTER) - Final Occult Blood Positive Laboratory Results 01/02/19 06:19: WBC 3.7 L, RBC 3.52 L, Hgb 7.7 L, Hct 26.2 L, MCV 74.4 L, MCH 21.9 L, MCHC 29.4 L, RDW Std Deviation 52.2 H, RDW Coeff of Kerri 19.6 H, Plt Count 160, MPV 10.2, Immature Gran % (Auto) 0.500, Neut % (Auto) 63.2, Lymph % (Auto) 17.5 L, [place] % (Auto) 13.4 H, Eos % (Auto) 4.3, Baso % (Auto) 1.1 H, Absolute Neuts (auto) 2.4, Absolute Lymphs (auto) 0.65 L, Nucleated RBC % 0 Current Medications Acetaminophen (Tylenol) 650 mg PO Q6H PRN PRN PRN Reason: Pain Score 1-3/Temp > 100.7 F Last Admin: 01/01/19 09:50 Dose: 650 mg Documented by: Albuterol/Ipratropium (Duoneb) 3 ml INHALATION Q6HWA.RT [facility] Last Admin: 01/02/19 07:42 Dose: 3 ml Documented by: Amlodipine Besylate (Norvasc) 5 mg PO DAILY [facility] Last Admin: 01/02/19 08:44 Dose: 5 mg Documented by: Bisacodyl (Dulcolax) 20 mg PO 1200 [facility] Stop: 01/02/19 12:01 Furosemide (Lasix) 40 mg PO DAILY [facility] Last Admin: 01/02/19 08:43 Dose: 40 mg Documented by: Sodium Chloride () 500 mls @ 15 mls/hr IV PRN PRN PRN Reason: Blood Transfusion Sodium Chloride () 250 mls @ 15 mls/hr IV .[id number] PRN PRN Reason: Saline Flush Last Infusion: 12/31/18 10:15 Dose: Infused Documented by: Polyethylene Glycol (Clearlax For Bowel Prep) 0 bottle PO DAILY@1600 [facility] Stop: 01/02/19 16:01 Polysaccharide Iron [facility] (Ferrex 150) [facility] Potassium [facility] ([facility]-Dur) [facility] Last Admin: 01/02/19 08:43 Dose: 20 meq Documented by: Pravastatin Sodium (Pravachol) 40 mg PO QHS [facility] Last Admin: 01/01/19 21:38 Dose: 40 mg Documented by: Sertraline HCl (Zoloft) 25 mg PO DAILY [facility] Last Admin: 01/02/19 08:44 Dose: 25 mg Documented by: Sodium Chloride () 10 - 40 ml IV UD PRN PRN Reason: SALINE FLUSH Last Admin: 01/01/19 20:06 Dose: 10 ml Documented by: Spironolactone (Aldactone) 25 mg PO DAILY [facility] Last Admin: 01/02/19 08:43 Dose: 25 mg Documented by: Medical Necessity - Tobacco Use Smoking Status: Former smoker Tobacco Use: Non-smoker Assessment/Plan All Active Problems Anemia (Acute) GI bleed (Acute) Ascites (Acute) Abdominal distention (Acute) Getting intravenous iron at this time. We will have her bowel prep started this afternoon. Orders have been written
--- NOTE | 2019-01-02 12:46 | PN_ITS ---
<Bryn Villasenor - Last Filed: 01/02/19 12:46> Patient Problems: Active and Suspected Problems Anemia (Acute) GI bleed (Acute) Ascites (Acute) Abdominal distention (Acute) Subjective: No acute issues overnight. BM last night, well formed, brown, no black/blood. No dizziness/LH. No SOB. - Physical Exam Vitals/I&O's: Vital Signs Temp Pulse Resp BP Pulse Ox 97.9 F 89 16 135/63 H 92 01/02/19 08:41 01/02/19 08:55 01/02/19 08:41 01/02/19 08:55 01/02/19 08:41 Oxygen Flow Rate (L/min) 2 Oxygen Delivery Method Room Air Weight: 145 lb 4.554 oz Body Mass Index (BMI) 26.5 Orthostatic Vital Signs Start: 01/02/19 08:55 Freq: q24h Status: Active Protocol: Activity Type Activity Date Activity User E-Sign Co-Sign Detail Recorded Client Recorded Date Recorded By Document 01/02/19 08:55 MLB [id number] 01/02/19 08:58 MLB 01/02/19 08:55 Orthostatic Vitals Standing -Blood Pressure (90/60-120/80) 139/62 H -Extremity Use Left Arm -Pulse Rate (60-100) 86 Sitting -Blood Pressure (90/60-120/80) 143/63 H -Extremity Use Left Arm -Pulse Rate (60-100) 89 Lying -Blood Pressure (90/60-120/80) 135/63 H -Extremity Use Left Arm -Pulse Rate (60-100) 89 Intake and Output for Last 24 Hours 12/31/18 01/01/19 01/02/19 23:59 23:59 23:59 Intake Total 2428.75 / 3128.75 1860 / 1860 350 / 350 Output Total 800 / 1300 1400 / 1800 700 / 700 Balance 1628.75 / 1828.75 460 / 60 -350 / -350 General: Alert, Oriented x3, Cooperative HEENT: Atraumatic, PERRLA, EOMI, Normocephalic Neck: Supple, No JVD, Negative Carotid Bruits Lungs: Clear to auscultation, Normal air movement Cardiovascular: Regular rate, No murmurs Abdomen: Bowel Sounds Present, Soft, Non Tender Extremities: No edema, Capillary Refill Less than 3 Seconds Skin: No rashes, No breakdown Musculoskeletal: No Tenderness to Palpation of Joints or Extremities Neurological: Cranial nerves II-XII grossly intact Psych/Mental Status: Normal Affect, Appropriate, Alert and oriented to time, place, person, mood and affect Microbiology Past 72 Hours 12/30/18 14:20 Stool Stool Occult Blood ([facility]) - Final Occult Blood Positive Laboratory Results 01/02/19 06:19: WBC 3.7 L, RBC 3.52 L, Hgb 7.7 L, Hct 26.2 L, MCV 74.4 L, MCH 21.9 L, MCHC 29.4 L, RDW Std Deviation 52.2 H, RDW Coeff of Kreri 19.6 H, Plt Count 160, MPV 10.2, Immature Gran % (Auto) 0.500, Neut % (Auto) 63.2, Lymph % (Auto) 17.5 L, Metcalfe % (Auto) 13.4 H, Eos % (Auto) 4.3, Baso % (Auto) 1.1 H, Absolute Neuts (auto) 2.4, Absolute Lymphs (auto) 0.65 L, Nucleated RBC % 0 Current Medications Acetaminophen (Tylenol) 650 mg PO Q6H PRN PRN PRN Reason: Pain Score 1-3/Temp > 100.7 F Last Admin: 01/01/19 09:50 Dose: 650 mg Documented by: Albuterol/Ipratropium (Duoneb) 3 ml INHALATION Q6HWA.RT [facility] Last Admin: 01/02/19 07:42 Dose: 3 ml Documented by: Amlodipine Besylate (Norvasc) 5 mg PO DAILY [facility] Last Admin: 01/02/19 08:44 Dose: 5 mg Documented by: Furosemide (Lasix) 40 mg PO DAILY [facility] Last Admin: 01/02/19 08:43 Dose: 40 mg Documented by: Sodium Chloride () 500 mls @ 15 mls/hr IV PRN PRN PRN Reason: Blood Transfusion Sodium Chloride () 250 mls @ 15 mls/hr IV .[id number] PRN PRN Reason: Saline Flush Last Infusion: 12/31/18 10:15 Dose: Infused Documented by: Polyethylene Glycol (Clearlax For Bowel Prep) 0 bottle PO DAILY@1600 [facility] Stop: 01/02/19 16:01 Polysaccharide Iron Complex (Ferrex 150) [facility] Potassium Chloride (K-Dur) 20 meq [facility] Last Admin: 01/02/19 08:43 Dose: 20 meq Documented by: Pravastatin Sodium (Pravachol) 40 mg PO QHS [facility] Last Admin: 01/01/19 21:38 Dose: 40 mg Documented by: Sertraline HCl (Zoloft) 25 mg PO DAILY [facility] Last Admin: 01/02/19 08:44 Dose: 25 mg Documented by: Sodium Chloride () 10 - 40 ml IV UD PRN PRN Reason: SALINE FLUSH Last Admin: 01/01/19 20:06 Dose: 10 ml Documented by: Spironolactone (Aldactone) 25 mg PO DAILY [facility] Last Admin: 01/02/19 08:43 Dose: 25 mg Documented by: Medical Necessity - Tobacco Use Smoking Status: Former smoker Tobacco Use: Non-smoker Assessment/Plan All Active Problems Anemia (Acute) GI bleed (Acute) Ascites (Acute) Abdominal distention (Acute) 1. Ascites unclear etiology - no tap due to not enough fluid. Continue po lasix/aldactone. Monitor I/O. No masses on CT abdomen. Concern for pulmonary hypertension / heart failure. LFTs are normal. BNP mildly elevated. CEA/CA125 pending. -Echocardiogram demonstrates normal LV systolic function, 60% EF, septal bounce, apical false tendon, moderately enlarged left atrium, 1-2+ MVI, 2+ TVI, 1+ PVI, aortic valve thickening and calcification, RVSP of 36 mmHg, diastolic dysfunction. 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 2. 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 Patient does not know why she was taking this states she was recently put on a prior PCP for unclear reasons. Surgery is following, plan for upper and lower endoscopy. She has not received blood. She is microcytic with decreased iron and iron saturation, normal TIBC. She is receiving 3rd dose of venofer and will be started on oral iron when appropriate. Carcinoembryonic antigen and Ca1 25 are pending. LDH normal. -EGD/Colon Tomorrow. -Hgb slight decrease 8.0-->7.7. -ongoing normal BMs with no black/blood noted. 3. Hypokalemia-resolved. 4. Pulmonary fibrosis - echo as above. Pulm fibrosis possibly contributing to cardiomyopathy/right heart failure/cor pulmonale/ascites. Aerosols added. Incentive spirometer. Needs referral to pulmonology as an outpatient. Off o2. 5. Mild thrombocytopenia-improved. 6. hx nicotine abuse 7. Depression - zoloft. 8. htn - stable DVT prophylaxis: SCDs Discharge planning-patient needs endoscopy per general surgery prior to discharge. Needs walking pulse ox prior to DC. Pulm referral at [place]. This patient was seen by Bryn Villasenor PA-C under the supervision of Doctor Cricket. <Monique Harley - Last Filed: 01/02/19 15:03> - Physical Exam Vitals/I&O's: Vital Signs Temp Pulse Resp BP Pulse Ox 97.9 F 72 16 135/63 H 92 01/02/19 08:41 01/02/19 13:12 01/02/19 13:12 01/02/19 08:55 01/02/19 08:41 Oxygen Flow Rate (L/min) 2 Oxygen Delivery Method Room Air Weight: 65.9 kg Body Mass Index (BMI) 26.5 Orthostatic Vital Signs Start: 01/02/19 08:55 Freq: q24h Status: Active Protocol: Activity Type Activity Date Activity User E-Sign Co-Sign Detail Recorded Client Recorded Date Recorded By Document 01/02/19 08:55 MLB [id number] 01/02/19 08:58 MLB 01/02/19 08:55 Orthostatic Vitals Standing -Blood Pressure (90/60-120/80) 139/62 H -Extremity Use Left Arm -Pulse Rate (60-100) 86 Sitting -Blood Pressure (90/60-120/80) 143/63 H -Extremity Use Left Arm -Pulse Rate (60-100) 89 Lying -Blood Pressure (90/60-120/80) 135/63 H -Extremity Use Left Arm -Pulse Rate (60-100) 89 Intake and Output for Last 24 Hours 12/31/18 01/01/19 01/02/19 23:59 23:59 23:59 Intake Total 2428.75 / 3128.75 1860 / 1860 350 / 350 Output Total 800 / 1300 1400 / 1800 700 / 700 Balance 1628.75 / 1828.75 460 / 60 -350 / -350 Microbiology Past 72 Hours 12/30/18 14:20 Stool Stool Occult Blood ([facility]) - Final Occult Blood Positive Laboratory Results 01/02/19 06:19: WBC 3.7 L, RBC 3.52 L, Hgb 7.7 L, Hct 26.2 L, MCV 74.4 L, MCH 21.9 L, MCHC 29.4 L, RDW Std Deviation 52.2 H, RDW Coeff of Kerri 19.6 H, Plt Count 160, MPV 10.2, Immature Gran % (Auto) 0.500, Neut % (Auto) 63.2, Lymph % (Auto) 17.5 L, Metcalfe % (Auto) 13.4 H, Eos % (Auto) 4.3, Baso % (Auto) 1.1 H, Absolute Neuts (auto) 2.4, Absolute Lymphs (auto) 0.65 L, Nucleated RBC % 0 Current Medications Acetaminophen (Tylenol) 650 mg PO Q6H PRN PRN PRN Reason: Pain Score 1-3/Temp > 100.7 F Last Admin: 01/01/19 09:50 Dose: 650 mg Documented by: Albuterol/Ipratropium (Duoneb) 3 ml INHALATION Q6HWA.RT [facility] Last Admin: 01/02/19 13:12 Dose: 3 ml Documented by: Amlodipine Besylate (Norvasc) 5 mg PO DAILY [facility] Last Admin: 01/02/19 08:44 Dose: 5 mg Documented by: Furosemide (Lasix) 40 mg PO DAILY [facility] Last Admin: 01/02/19 08:43 Dose: 40 mg Documented by: Sodium Chloride () 500 mls @ 15 mls/hr IV PRN PRN PRN Reason: Blood Transfusion Sodium Chloride () 250 mls @ 15 mls/hr IV .[id number] PRN PRN Reason: Saline Flush Last Infusion: 12/31/18 10:15 Dose: Infused Documented by: Polyethylene Glycol (Clearlax For Bowel Prep) 0 bottle PO DAILY@1600 [facility] Stop: 01/02/19 16:01 Polysaccharide Iron Complex (Ferrex 150) [facility] Potassium Chloride (K-Dur) 20 [facility]q [facility] Last Admin: 01/02/19 08:43 Dose: 20 meq Documented by: Pravastatin Sodium (Pravachol) 40 mg PO QHS [facility] Last Admin: 01/01/19 21:38 Dose: 40 mg Documented by: Sertraline HCl (Zoloft) 25 mg PO DAILY [facility] Last Admin: 01/02/19 08:44 Dose: 25 mg Documented by: Sodium Chloride () 10 - 40 ml IV UD PRN PRN Reason: SALINE FLUSH Last Admin: 01/01/19 20:06 Dose: 10 ml Documented by: Spironolactone (Aldactone) 25 mg PO DAILY [facility] Last Admin: 01/02/19 08:43 Dose: 25 mg Documented by: Assessment/Plan This patient was seen in conjunction with JAKE Alfaro. I have independently interviewed and examined the patient and reviewed pertinent historical, laboratory, and other data. Please refer to JAKE Alfaro note for his patient's presentation, findings, and recommendations. I have reviewed and his note and concur with his documentation Patient was seen and examined. No new complaints. No acute events overnight. No more bleeding per rectum. Abdomen is still distended. Denies any chest pain or dizziness. She has a left anterior cubital erythema, swelling and warmth from a previous IV site. Ice compresses being applied Physical Exam: General: Alert, Oriented x3, Cooperative HEENT: Atraumatic, PERRLA, EOMI, Normocephalic Neck: Supple, No JVD, Negative Carotid Bruits Lungs: Diminished, Rales - fine rales throughout BL. Cardiovascular: Regular rate, No murmurs Abdomen: Bowel Sounds Present, Soft, Non Tender, Distended Extremities: No edema, Capillary Refill Less than 3 Seconds Skin: No rashes, No breakdown Musculoskeletal: No Tenderness to Palpation of Joints or Extremities Neurological: Cranial nerves II-XII grossly intact Psych/Mental Status: Normal Affect, Appropriate, Alert and oriented to time, place, person, mood and affect ASSESSMENT: 1. Possible GI bleed, FOBT positive, history of chronic blood loss anemia 2. Ascites, unclear etiology 3. Hypokalemia 4. Pulmonary fibrosis 5. Thrombocytopenia 6. Nicotine dependence 7. Hypertension 8. Depression Plan: Continue to monitor Continue Lasix, Aldactone, potassium Labs in a.m. Endoscopy planned for Thursday Code Visit Inpatient E&M: [id number] [facility] Hosp L2
[2019-01-02] MEDS: Bisacodyl 5 MG Tablet 20 MG PO (13:37)
[2019-01-02] MEDS: Polyethylene Glycol 3350 BOWEL PREP PO (16:18)
[2019-01-02] MEDS: 0.9% Saline Lock 10 ML Syringe IV ×3 (20:47→23:03)
[2019-01-02] MEDS: Pravastatin 40 MG Tablet PO (20:47)
[2019-01-03] VITALS (14 sets, daily range): BP systolic 80–150; BP diastolic 35–73; PULSE 70–83; RESP 16–18; TEMP 36.4–36.8; O2SAT 91–96; BMI 26.5
[2019-01-03 06:33] LABS: Hematocrit 27.9 % (37-47); Hemoglobin 8.4 g/dL (12.0-15.0); Mean Corp Hgb Conc 30.1 g/dL (32-36); Mean Corpuscular Hgb 22.4 pg (27.0-32.0); Mean Corpuscular Volume 74.4 fL (81-99); Mean Platelet Vol. 9.5 fl (6.2-12.0); Platelet Count 188 K/mm3 (150-450); RBC Distribution Width CV 19.9 % (11.6-14.6); RBC Distribution Width SD 52.3 fl (35.1-43.9); Red Blood Count 3.75 M/mm3 (4.2-5.4); White Blood Count 5.5 K/mm3 (4.4-11.0)
[2019-01-03] MEDS: Polyethylene Glycol 3350 17 GM PACKET 34 GM PO (07:24)
--- NOTE | 2019-01-03 08:46 | PCM.PN.SRG ---
Patient Problems: Active and Suspected Problems Anemia (Acute) GI bleed (Acute) Ascites (Acute) Abdominal distention (Acute) Subjective: The patient reports that she is doing well this morning. She is having less abdominal distention. - Physical Exam Vitals/I&O's: Vital Signs Temp Pulse Resp BP Pulse Ox 97.8 F 73 16 137/57 H 94 01/03/19 06:30 01/03/19 06:33 01/03/19 06:30 01/03/19 06:33 01/03/19 06:30 Oxygen Flow Rate (L/min) 2 Oxygen Delivery Method Room Air Weight: 145 lb 4.554 oz Body Mass Index (BMI) 26.5 Orthostatic Vital Signs Start: 01/02/19 08:55 Freq: q24h Status: Active Protocol: Activity Type Activity Date Activity User E-Sign Co-Sign Detail Recorded Client Recorded Date Recorded By Document 01/03/19 06:33 AML [id number] 01/03/19 06:33 AML 01/03/19 06:33 Orthostatic Vitals Standing -Blood Pressure (90/60-120/80) 150/58 H -Extremity Use Right Arm -Pulse Rate (60-100) 81 Sitting -Blood Pressure (90/60-120/80) 142/67 H -Extremity Use Right Arm -Pulse Rate (60-100) 71 Lying -Blood Pressure (90/60-120/80) 137/57 H -Extremity Use Right Arm -Pulse Rate (60-100) 73 Intake and Output for Last 24 Hours 01/01/19 01/02/19 01/03/19 23:59 23:59 23:59 Intake Total 1860 / 1860 2049 / 2049 Output Total 1400 / 1800 700 / 700 3 / 3 Balance 460 / 60 1350 / 1350 -3 / -3 General: Alert, Oriented x3 Lungs: Normal air movement Abdomen: Soft, Non Tender, Non-Distended Laboratory Results 01/03/19 06:10: WBC 5.5, RBC 3.75 L, Hgb 8.4 L, Hct 27.9 L, MCV 74.4 L, MCH 22.4 L, MCHC 30.1 L, RDW Std Deviation 52.3 H, RDW Coeff of Kerri 19.9 H, Plt Count 188, MPV 9.5 Current Medications Acetaminophen (Tylenol) 650 mg PO Q6H PRN PRN PRN Reason: Pain Score 1-3/Temp > 100.7 F Last Admin: 01/01/19 09:50 Dose: 650 mg Documented by: Albuterol/Ipratropium (Duoneb) 3 ml INHALATION Q6HWA.RT [facility] Last Admin: 01/03/19 07:20 Dose: Not Given Documented by: Amlodipine Besylate (Norvasc) 5 mg PO DAILY [facility] Last Admin: 01/02/19 08:44 Dose: 5 mg Documented by: Furosemide (Lasix) 40 mg PO DAILY [facility] Last Admin: 01/02/19 08:43 Dose: 40 mg Documented by: Sodium Chloride () 500 mls @ 15 mls/hr IV PRN PRN PRN Reason: Blood Transfusion Sodium Chloride () 250 mls @ 15 mls/hr IV .[id number] PRN PRN Reason: Saline Flush Last Infusion: 12/31/18 10:15 Dose: Infused Documented by: Polysaccharide [facility] ([facility]rex 150) [facility] Pot[facility] Ch[facility] ([facility]) [facility] Last Admin: 01/02/19 16:19 Dose: 20 meq Documented by: Pravastatin Sodium (Pravachol) 40 mg PO QHS [facility] Last Admin: 01/02/19 20:47 Dose: 40 mg Documented by: Sertraline HCl (Zoloft) 25 mg PO DAILY [facility] Last Admin: 01/02/19 08:44 Dose: 25 mg Documented by: Sodium Chloride () 10 - 40 ml IV UD PRN PRN Reason: SALINE FLUSH Last Admin: 01/02/19 23:03 Dose: 10 ml Documented by: Spironolactone (Aldactone) 25 mg PO DAILY [facility] Last Admin: 01/02/19 08:43 Dose: 25 mg Documented by: Medical Necessity - Tobacco Use Smoking Status: Former smoker Tobacco Use: Non-smoker Assessment/Plan All Active Problems Anemia (Acute) GI bleed (Acute) Ascites (Acute) Abdominal distention (Acute) 83-year-old female with iron deficiency anemia 1. The patient reports less abdominal distention. She had no gross blood in her stool over the weekend. Plan for EGD and colonoscopy this morning. I explained endoscopy in detail to the patient. I explained the risks including but not limited to stroke or heart attack with anesthesia, perforation of the GI tract, bleeding, infection. I explained that any of these could necessitate further emergency surgery. The patient understands and all questions were answered sufficiently. The patient wishes to proceed with procedure. Gabriele Lopes MD Pager: [facility] [address] [place] [address] [address] [place] [address] Office:
--- NOTE | 2019-01-03 11:15 | COLBX_PTH ---
PATIENT: ELLIOT MUNOZ LOC: [facility] U#:[id number] AGE/SX: 83/F ROOM: [facility] RE12/30/[address]: Dr. Shawnee Granados MD : 1935 BED: 1 DIS: 01/05/2019 SPEC #: [id number] RECD: 01/03/19 12:50 STATUS: WENDIE MILES #: [id number] PAVEL: 01/03/19 11:[address]: Gabriele Lopes DEPT: SURGICAL PATHOLOGY RECD BY: Jagruti Light ENTERED: 01/03/19 13:42 SP TYPE: COLON BX OTHR DR: DO Dr. Shawnee Alonso MD Dr. Yasser Omran, MD Tissues: Duodenum, NOS Procedures: Surgery Specimen Level IV HEADER OPERATION: Colonoscopy, EGD ([facility]) PRE-OP DIAGNOSIS: Anemia, GI bleed TISSUE SUBMITTED: Duodenal biopsy MICROSCOPIC DIAGNOSIS Duodenum, biopsy: Gastric metaplasia with associated mild chronic inflammation. AM:ludivina 01/04/19 MICROSCOPIC DESCRIPTION Slides are reviewed. GROSS DESCRIPTION Received in fixative is one container labeled with the patient's name and designated duodenal biopsy. The specimen consists of multiple irregular fragments of light contreras soft tissue that in aggregate measure 0.5 x 0.2 x 0.1 cm. The specimen is totally submitted in one cassette. / SJ:ludivina 01/03/19 TC:3 CPT: 53236
--- NOTE | 2019-01-03 11:44 | OP.EGD_ITS ---
Patient Name: Ericka Man Procedure Date: 01/03/2019 10:53 AM Date of : 1935 Age: 83 Procedure: Upper GI endoscopy Indications: Iron deficiency anemia Providers: Gabriele Lopes MD Referring MD: Moody Belcher Medicines: Monitored Anesthesia Care Patient Profile: This is an 83 year old female. Refer to note in patient chart for documentation of history and physical. Complications: No immediate complications. Estimated blood loss: Minimal. Procedure: Pre-Anesthesia Assessment: - Prior to the procedure, a History and Physical was performed, and patient medications and allergies were reviewed. The patient's tolerance of previous anesthesia was also reviewed. The risks and benefits of the procedure and the sedation options and risks were discussed with the patient. All questions were answered, and informed consent was obtained. Prior Anticoagulants: The patient has taken no previous anticoagulant or antiplatelet agents. After reviewing the risks and benefits, the patient was deemed in satisfactory condition to undergo the procedure. After obtaining informed consent, the endoscope was passed under direct vision. Throughout the procedure, the patient's blood pressure, pulse, and oxygen saturations were monitored continuously. The gastroscope was introduced through the mouth, and advanced to the third part of duodenum. The upper GI endoscopy was accomplished without difficulty. The patient tolerated the procedure well. Scope In: 11:19:42 AM Scope Out: 11:24:13 AM Total Procedure Duration Time 0 hours 4 minutes 31 seconds Findings: Grade II varices were found in the lower third of the esophagus. Localized mild inflammation was found in the second portion of the duodenum. Biopsies were taken with a cold forceps for histology. Impression: - Grade II esophageal varices. - Duodenitis. Biopsied. Recommendation: - Await pathology results. - Resume previous diet. - [facility]. - Continue present medications. Procedure Code(s): --- Professional --- 28024, Esophagogastroduodenoscopy, flexible, transoral; with biopsy, single or multiple Diagnosis Code(s): --- Professional --- I85.00, Esophageal varices without bleeding K29.80, Duodenitis without bleeding D50.9, Iron deficiency anemia, unspecified CPT copyright 2017 [employer]. All rights reserved. The codes documented in this report are preliminary and upon cardiology consultants review may be revised to meet current compliance requirements. Gabriele Lopes MD 01/03/2019 11:44:43 AM This report has been signed electronically. Number of Addenda: 0 Note Initiated On: 01/03/2019 10:53 AM
--- NOTE | 2019-01-03 11:46 | OP.COLON_ITS ---
Patient Name: Ericka Man Procedure Date: 01/03/2019 11:25 AM Date of : 1935 Age: 83 Procedure: Colonoscopy Indications: Iron deficiency anemia Providers: Gabriele Lopes MD Referring MD: Moody Belcher Medicines: Monitored Anesthesia Care Patient Profile: This is an 83 year old female. Refer to note in patient chart for documentation of history and physical. Last Colonoscopy: none. The patient's first colonoscopy is today. Complications: No immediate complications. Estimated blood loss: None. Procedure: Pre-Anesthesia Assessment: - Prior to the procedure, a History and Physical was performed, and patient medications and allergies were reviewed. The patient's tolerance of previous anesthesia was also reviewed. The risks and benefits of the procedure and the sedation options and risks were discussed with the patient. All questions were answered, and informed consent was obtained. Prior Anticoagulants: The patient has taken no previous anticoagulant or antiplatelet agents. After reviewing the risks and benefits, the patient was deemed in satisfactory condition to undergo the procedure. After I obtained informed consent, the scope was passed under direct vision. Throughout the procedure, the patient's blood pressure, pulse, and oxygen saturations were monitored continuously. The Colonoscope was introduced through the anus and advanced to the cecum, identified by appendiceal orifice and ileocecal valve. The colonoscopy was performed without difficulty. The patient tolerated the procedure well. The quality of the bowel preparation was good. Scope In: 11:27:01 AM Scope Withdrawal Time 0 hours 4 minutes 44 seconds Scope Out: 11:36:47 AM Total Procedure Duration Time 0 hours 9 minutes 46 seconds Findings: The entire examined colon appeared normal on direct and retroflexion views. Impression: - The entire examined colon is normal on direct and retroflexion views. - No specimens collected. Recommendation: - [facility]. - No repeat colonoscopy due to current age (66 years or older). - Continue present medications. Procedure Code(s): --- Professional --- 59540, Colonoscopy, flexible; diagnostic, including collection of specimen(s) by brushing or washing, when performed (separate procedure) Diagnosis Code(s): --- Professional --- D50.9, Iron deficiency anemia, unspecified CPT copyright 2017 [employer]. All rights reserved. The codes documented in this report are preliminary and upon medical coder review may be revised to meet current compliance requirements. Gabriele Lopes MD 01/03/2019 11:46:12 AM This report has been signed electronically. Number of Addenda: 0 Note Initiated On: 01/03/2019 11:25 AM
--- NOTE | 2019-01-03 11:46 | PCM.PN.BLA ---
Progress Note I performed an EGD and colonoscopy on the patient. The year was no malignancy identified. There is no sign of occult or active bleeding. The patient did have large varices in the distal esophagus as well as the rectum. This lens the possibility that with the ascites she may be having liver disease. I would recommend CT-guided liver biopsy. I will discuss this with the family. Gabriele Lopes MD Pager: [facility] [address] [place] [address], [address] [place] [address] Office: [facility] Vital Signs/Narrative: Vital Signs Temp Pulse Resp BP Pulse Ox 01/03/19 10:13 98.2 F 80 16 138/62 H 95 01/03/19 08:05 72
[2019-01-03] MEDS: Sertraline 50 MG Tablet 25 MG PO (13:17)
[2019-01-03] MEDS: Furosemide 40 MG Tablet PO (13:17)
[2019-01-03] MEDS: Iron Polysaccharide Complex 150 MG CAPSULE PO (13:17)
[2019-01-03] MEDS: Spironolactone 25 MG Tablet PO (13:17)
[2019-01-03] MEDS: amLODIPine 5 MG Tablet PO (13:18)
[2019-01-03 13:48] LABS: Cancer Antigen 125 203.8 U/mL (0.0-38.1); Carcinoembryonic Antigen 2.3 ng/mL (0.0-4.7)
--- NOTE | 2019-01-03 14:13 | PN_ITS ---
<Bryn Villasenor - Last Filed: 01/03/19 14:13> Patient Problems: Active and Suspected Problems Anemia (Acute) GI bleed (Acute) Ascites (Acute) Abdominal distention (Acute) Subjective: No abd pain, no nausea/vomiting, no LH/dizziness. No SOB, no cough. No LE edema. - Physical Exam Vitals/I&O's: Vital Signs Temp Pulse Resp BP Pulse Ox 97.9 F 77 18 125/57 H 91 01/03/19 12:30 01/03/19 12:30 01/03/19 12:30 01/03/19 12:30 01/03/19 12:30 Oxygen Flow Rate (L/min) 2 Oxygen Delivery Method Room Air Weight: 145 lb 4.554 oz Body Mass Index (BMI) 26.5 Orthostatic Vital Signs Start: 01/02/19 08:55 Freq: q24h Status: Active Protocol: Activity Type Activity Date Activity User E-Sign Co-Sign Detail Recorded Client Recorded Date Recorded By Document 01/03/19 06:33 AML [id number] 01/03/19 06:33 AML 01/03/19 06:33 Orthostatic Vitals Standing -Blood Pressure (90/60-120/80) 150/58 H -Extremity Use Right Arm -Pulse Rate (60-100) 81 Sitting -Blood Pressure (90/60-120/80) 142/67 H -Extremity Use Right Arm -Pulse Rate (60-100) 71 Lying -Blood Pressure (90/60-120/80) 137/57 H -Extremity Use Right Arm -Pulse Rate (60-100) 73 Intake and Output for Last 24 Hours 01/01/19 01/02/19 01/03/19 23:59 23:59 23:59 Intake Total 1860 / 1860 2049 Output Total 1400 / 1800 700 / 700 3 / 3 Balance 460 / 60 1350 / 1350 -3 / -3 General: Alert, Oriented x3, Cooperative HEENT: Atraumatic, PERRLA, EOMI, Normocephalic Neck: Supple, No JVD, Negative Carotid Bruits Lungs: Rales - throughtout Cardiovascular: Regular rate, No murmurs Abdomen: Bowel Sounds Present, Soft, Non Tender Extremities: No edema, Capillary Refill Less than 3 Seconds Skin: No rashes, No breakdown Musculoskeletal: No Tenderness to Palpation of Joints or Extremities Neurological: Cranial nerves II-XII grossly intact Psych/Mental Status: Normal Affect, Appropriate, Alert and oriented to time, place, person, mood and affect Laboratory Results 12/31/18 08:15: Carcinoembryonic Ag 2.3, CA 125 Antigen 203.8 H 01/03/19 06:10: WBC 5.5, RBC 3.75 L, Hgb 8.4 L, Hct 27.9 L, MCV 74.4 L, MCH 22.4 L, MCHC 30.1 L, RDW Std Deviation 52.3 H, RDW Coeff of Kerri 19.9 H, Plt Count 188, MPV 9.5 Current Medications Acetaminophen (Tylenol) 650 mg PO Q6H PRN PRN PRN Reason: Pain Score 1-3/Temp > 100.7 F Last Admin: 01/01/19 09:50 Dose: 650 mg Documented by: Albuterol/Ipratropium (Duoneb) 3 ml INHALATION Q6HWA.RT [facility] Last Admin: 01/03/19 13:00 Dose: Not Given Documented by: Amlodipine Besylate (Norvasc) 5 mg PO DAILY [facility] Last Admin: 01/03/19 13:18 Dose: 5 mg Documented by: Furosemide (Lasix) 40 mg PO DAILY [facility] Last Admin: 01/03/19 13:17 Dose: 40 mg Documented by: Sodium Chloride () 500 mls @ 15 mls/hr IV PRN PRN PRN Reason: Blood Transfusion Sodium Chloride () 250 mls @ 15 mls/hr IV .[id number] PRN PRN Reason: Saline Flush Last Infusion: 12/31/18 10:15 Dose: Infused Documented by: Polysaccharide [facility] ([facility]rex 150) [facility] Last Admin: 01/03/19 13:17 Dose: 150 mg Documented by: Potassium Chloride (K-Dur) [facility] Last Admin: 01/03/19 13:18 Dose: 20 meq Documented by: Pravastatin Sodium (Pravachol) 40 mg PO QHS [facility] Last Admin: 01/02/19 20:47 Dose: 40 mg Documented by: Sertraline HCl (Zoloft) 25 mg PO DAILY [facility] Last Admin: 01/03/19 13:17 Dose: 25 mg Documented by: Sodium Chloride () 10 - 40 ml IV UD PRN PRN Reason: SALINE FLUSH Last Admin: 01/02/19 23:03 Dose: 10 ml Documented by: Spironolactone (Aldactone) 25 mg PO DAILY [facility] Last Admin: 01/03/19 13:17 Dose: 25 mg Documented by: Medical Necessity - Tobacco Use Smoking Status: Former smoker Tobacco Use: Non-smoker Assessment/Plan All Active Problems Anemia (Acute) GI bleed (Acute) Ascites (Acute) Abdominal distention (Acute) 1. Ascites unclear etiology - no tap due to not enough fluid. Continue po lasix/aldactone. Monitor I/O. No masses on CT abdomen. Concern for pulmonary hypertension / heart failure. LFTs are normal. BNP mildly elevated. CEA/CA125 pending. -EGD and colonoscopy with varices -CT liver biopsy -no aspirin at dc. -Echocardiogram demonstrates normal LV systolic function, 60% EF, septal bounce, apical false tendon, moderately enlarged left atrium, 1-2+ MVI, 2+ TVI, 1+ PVI, aortic valve thickening and calcification, RVSP of 36 mmHg, diastolic dysfunction. 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 2. 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 no transfusion of blood this admission. Venofer x 3. PO iron at dc. -EGD and colon done this AM. 3. Hypokalemia-resolved. 4. Pulmonary fibrosis - echo as above. Pulm fibrosis possibly contributing to cardiomyopathy/right heart failure/cor pulmonale/ascites. Aerosols added. Incentive spirometer. Needs referral to pulmonology as an outpatient. Off o2. 5. Mild thrombocytopenia-resolved 6. hx nicotine abuse 7. Depression - zoloft. 8. htn - stable DVT prophylaxis: SCDs Discharge planning: CT bx of liver pending. This patient was seen by Bryn Villasenor PA-C under the supervision of Doctor Roberta. <Shawnee Granados - Last Filed: 01/03/19 15:43> - Physical Exam Vitals/I&O's: Vital Signs Temp Pulse Resp BP Pulse Ox 98.2 F 74 18 140/57 H 95 01/03/19 14:56 01/03/19 14:56 01/03/19 14:56 01/03/19 14:56 01/03/19 14:56 Oxygen Flow Rate (L/min) 2 Oxygen Delivery Method Room Air Weight: 145 lb 4.554 oz Body Mass Index (BMI) 26.5 Orthostatic Vital Signs Start: 01/02/19 08:55 Freq: q24h Status: Active Protocol: Activity Type Activity Date Activity User E-Sign Co-Sign Detail Recorded Client Recorded Date Recorded By Document 01/03/19 06:33 AML [id number] 01/03/19 06:33 AML 01/03/19 06:33 Orthostatic Vitals Standing -Blood Pressure (90/60-120/80) 150/58 H -Extremity Use Right Arm -Pulse Rate (60-100) 81 Sitting -Blood Pressure (90/60-120/80) 142/67 H -Extremity Use Right Arm -Pulse Rate (60-100) 71 Lying -Blood Pressure (90/60-120/80) 137/57 H -Extremity Use Right Arm -Pulse Rate (60-100) 73 Intake and Output for Last 24 Hours 01/01/19 01/02/19 01/03/19 23:59 23:59 23:59 Intake Total 1860 / 1860 2050 / 2050 Output Total 1400 / 1800 700 / 700 3 / 3 Balance 460 / 60 1350 / 1350 -3 / -3 Laboratory Results 12/31/18 08:15: Carcinoembryonic Ag 2.3, CA 125 Antigen 203.8 H 01/03/19 06:10: WBC 5.5, RBC 3.75 L, Hgb 8.4 L, Hct 27.9 L, MCV 74.4 L, MCH 22.4 L, MCHC 30.1 L, RDW Std Deviation 52.3 H, RDW Coeff of Kerri 19.9 H, Plt Count 188, MPV 9.5 Current Medications Acetaminophen (Tylenol) 650 mg PO Q6H PRN PRN PRN Reason: Pain Score 1-3/Temp > 100.7 F Last Admin: 01/01/19 09:50 Dose: 650 mg Documented by: Albuterol/Ipratropium (Duoneb) 3 ml INHALATION Q6HWA.RT [facility] Last Admin: 01/03/19 13:00 Dose: Not Given Documented by: Amlodipine Besylate (Norvasc) 5 mg PO DAILY [facility] Last Admin: 01/03/19 13:18 Dose: 5 mg Documented by: Furosemide (Lasix) 40 mg PO DAILY [facility] Last Admin: 01/03/19 13:17 Dose: 40 mg Documented by: Sodium Chloride () 500 mls @ 15 mls/hr IV PRN PRN PRN Reason: Blood Transfusion Sodium Chloride () 250 mls @ 15 mls/hr IV .[id number] PRN PRN Reason: Saline Flush Last Infusion: 12/31/18 10:15 Dose: Infused Documented by: Polysaccharide Iron Complex (Ferrex 150) [facility] Last Admin: 01/03/19 13:17 Dose: 150 mg Documented by: Potassium Chloride (K-Dur) [facility]q [facility] Last Admin: 01/03/19 13:18 Dose: 20 meq Documented by: Pravastatin Sodium (Pravachol) 40 mg PO QHS [facility] Last Admin: 01/02/19 20:47 Dose: 40 mg Documented by: Sertraline HCl (Zoloft) 25 mg PO DAILY [facility] Last Admin: 01/03/19 13:17 Dose: 25 mg Documented by: Sodium Chloride () 10 - 40 ml IV UD PRN PRN Reason: SALINE FLUSH Last Admin: 01/02/19 23:03 Dose: 10 ml Documented by: Spironolactone (Aldactone) 25 mg PO DAILY [facility] Last Admin: 01/03/19 13:17 Dose: 25 mg Documented by: Assessment/Plan Patient seen by Bryn Villasenor PA-C under my supervision Patient seen and examined. She had no complaints today. Said abdominal distention had improved significantly. Review of systems is otherwise negative. Labs and vitals reviewed. o/e: Vital Signs Height 5 ft 2 in Weight: 145 lb 4.554 oz Weight in Pounds 145.3 lbs Pulse Ox 95 Temperature 98.2 F Pulse Rate [Standing] 81 Pulse Rate [Sitting] 71 Pulse Rate [Lying] 73 Pulse Rate 74 Respiratory Rate 18 Blood Pressure [Standing] 150/58 Blood Pressure [Sitting] 142/67 Blood Pressure [Lying] 137/57 Blood Pressure 140/57 Blood Pressure Position Sitting General: Alert, Oriented x3, Cooperative HEENT: Atraumatic, PERRLA, EOMI, Normocephalic Neck: Supple, No JVD, Negative Carotid Bruits Lungs: Rales - throughtout Cardiovascular: Regular rate, No murmurs Abdomen: Bowel Sounds Present, Soft, Non Tender Extremities: No edema, Capillary Refill Less than 3 Seconds Skin: No rashes, No breakdown Musculoskeletal: No Tenderness to Palpation of Joints or Extremities Neurological: Cranial nerves II-XII grossly intact Psych/Mental Status: Normal Affect, Appropriate, Alert and oriented to time, place, person, mood and affect Patient had EGD and colonoscopy today which showed grade 2 varices in the lower third of the esophagus as well as localized mild inflammation in the second portion of the duodenum. Colonoscopy was essentially normal. Per discussion with general surgery, cause for esophageal varices is not clear as liver enzymes have remained normal CT of the abdomen and pelvis showed normal liver with cholelithiasis. Spleen was however enlarged. Recommendation is for patient to get CT-guided biopsy of the liver to assess for any occult liver pathology. 2D echocardiogram done in account of suspicion for pulmonary hypertension and heart failure showed normal left ventricular systolic function with EF of 60% and 2+ mitral valve and tricuspid valve insufficiency as well as diastolic dysfunction. CEA was only 2.3 but Ca1 25 is elevated at 203.8. Market elevation of Ca 125 antigen is strongly indicative of malignancy. Will order pelvic ultrasound as well to assess for ovarian cancer. Will consult oncology based on pelvic ultrasound results. Rest of management as per Bryn Villasenor PA-C's note, which I have reviewed and endorsed. Code Visit Inpatient E&M: 12799 Subs Hosp L3
[2019-01-03] MEDS: Pravastatin 40 MG Tablet PO (21:12)
[2019-01-04] MEDS: 0.9% Saline Lock 10 ML Syringe IV (00:04)
[2019-01-04] MEDS: 0.9% Normal Saline 1,000 ML 75 ML IV (00:04)
[2019-01-04 02:00] VITALS: BP 111/42; PULSE 69; RESP 18; TEMP 36.8; O2SAT 94
--- NOTE | 2019-01-04 05:55 | US_ITS ---
STUDY: ULTRASOUND OF THE FEMALE PELVIS - COMPLETE REASON FOR EXAM: Female, 83 years old. Elevated CA-125 levels. LMP: The patient is postmenopausal. TECHNIQUE: Transvaginal TECHNICAL QUALITY: Adequate. COMPARISON: None. FINDINGS: The uterus is anteverted and is in a midline position. The uterus measures 5.8 cm x 3.1 cm x 1.8 cm. Normal uterine cervix. The endometrium is thickened and measures 5.1 mm in thickness, and is hyperechoic. A small amount of endometrial fluid is seen. There is no demonstrated endometrial mass. There is no demonstrated myometrial mass. I.U.D. - The patient does not have an I.U.D. The right ovary is non-visualized. The left ovary is non-visualized There is a moderate amount of fluid in the cul-de-sac. No significant amount of fluid is in the abdomen. US/Transvaginal Non- IMPRESSION: Thickened endometrium. Moderate amount of pelvic fluid. Not enough fluid is seen in the abdomen for safe paracentesis. Electronically Signed: Kamaljit Logan, at 11:35 EST , Service support ,
[2019-01-04 06:16] LABS: Hematocrit 26.9 % (37-47); Hemoglobin 7.9 g/dL (12.0-15.0)
[2019-01-04 06:35] LABS: International Normalized Ratio 1.4
[2019-01-04 06:36] LABS: Partial Thromboplast Time 40.1 Seconds (24.1-36.2)
[2019-01-04 07:51] VITALS: BP 114/55; PULSE 71; RESP 18; TEMP 36.8; O2SAT 94
[2019-01-04] MEDS: Iron Polysaccharide Complex 150 MG CAPSULE PO (11:35)
[2019-01-04] MEDS: Furosemide 40 MG Tablet PO (11:36)
[2019-01-04] MEDS: Sertraline 50 MG Tablet 25 MG PO (11:36)
[2019-01-04] MEDS: amLODIPine 5 MG Tablet PO (11:38)
[2019-01-04 11:43] VITALS: BP 134/68; PULSE 72; RESP 18; TEMP 36.4; O2SAT 93
[2019-01-04] MEDS: Spironolactone 25 MG Tablet PO (11:45)
--- NOTE | 2019-01-04 12:40 | PCM.PROGNOTE ---
<Bryn Villasenor - Last Filed: 01/04/19 12:40> Patient Problems: Active and Suspected Problems Anemia (Acute) GI bleed (Acute) Ascites (Acute) Abdominal distention (Acute) Subjective: Pt without acute complaints today. No issues overnight. Mild decrease in Hgb. No SOB/LH/Dizziness fatigue. - Physical Exam Vitals/I&O's: Vital Signs Temp Pulse Resp BP Pulse Ox 97.6 F L 72 18 134/68 H 93 01/04/19 11:43 01/04/19 11:43 01/04/19 11:43 01/04/19 11:43 01/04/19 11:43 Oxygen Flow Rate (L/min) 2 Oxygen Delivery Method Room Air Weight: 145 lb 4.554 oz Body Mass Index (BMI) 26.5 Orthostatic Vital Signs Start: 01/02/19 08:55 Freq: q24h Status: Active Protocol: Activity Type Activity Date Activity User E-Sign Co-Sign Detail Recorded Client Recorded Date Recorded By Document 01/03/19 06:33 AML [id number] 01/03/19 06:33 AML 01/03/19 06:33 Orthostatic Vitals Standing -Blood Pressure (90/60-120/80) 150/58 H -Extremity Use Right Arm -Pulse Rate (60-100) 81 Sitting -Blood Pressure (90/60-120/80) 142/67 H -Extremity Use Right Arm -Pulse Rate (60-100) 71 Lying -Blood Pressure (90/60-120/80) 137/57 H -Extremity Use Right Arm -Pulse Rate (60-100) 73 Intake and Output for Last 24 Hours 01/02/19 01/03/19 01/04/19 23:59 23:59 23:59 Intake Total 2049 Output Total 700 / 700 3 / 3 Balance 1350 / 1350 -3 / -3 General: Alert, Oriented x3, Cooperative HEENT: Atraumatic, PERRLA, EOMI, Normocephalic Neck: Supple, No JVD, Negative Carotid Bruits Lungs: Normal air movement, Rales Cardiovascular: Regular rate, No murmurs Abdomen: Bowel Sounds Present, Soft, Non Tender Extremities: No edema, Capillary Refill Less than 3 Seconds Skin: No rashes, No breakdown Musculoskeletal: No Tenderness to Palpation of Joints or Extremities Neurological: Cranial nerves II-XII grossly intact Psych/Mental Status: Normal Affect, Appropriate, Alert and oriented to time, place, person, mood and affect Laboratory Results 12/31/18 08:15: Carcinoembryonic Ag 2.3, CA 125 Antigen 203.8 H 01/04/19 06:00: Hgb 7.9 L, Hct 26.9 L 01/04/19 06:00: PT 17.0 H, INR 1.4, APTT 40.1 H Current Medications Acetaminophen (Tylenol) 650 mg PO Q6H PRN PRN PRN Reason: Pain Score 1-3/Temp > 100.7 F Last Admin: 01/01/19 09:50 Dose: 650 mg Documented by: Albuterol/Ipratropium (Duoneb) 3 ml INHALATION Q6HWA.RT [facility] Last Admin: 01/04/19 07:48 Dose: Not Given Documented by: Amlodipine Besylate (Norvasc) 5 mg PO DAILY [facility] Last Admin: 01/04/19 11:38 Dose: 5 mg Documented by: Furosemide (Lasix) 40 mg PO DAILY [facility] Last Admin: 01/04/19 11:36 Dose: 40 mg Documented by: Sodium Chloride () 500 mls @ 15 mls/hr IV PRN PRN PRN Reason: Blood Transfusion Sodium Chloride () 250 mls @ 15 mls/hr IV .[id number] PRN PRN Reason: Saline Flush Last Infusion: 12/31/18 10:15 Dose: Infused Documented by: Sodium Chloride () 1,000 mls @ 75 mls/hr IV .[id number] [facility] Last Admin: 01/04/19 00:04 Dose: 75 mls/hr Documented by: Polysaccharide Iron Complex (Ferrex 150) 150 mg PO DAILYCM [facility] Last Admin: 01/04/19 11:35 Dose: 150 mg Documented by: Potassium Chloride (K-Dur) 20 meq PO BIDCM [facility] Last Admin: 01/04/19 11:35 Dose: 20 meq Documented by: Pravastatin Sodium (Pravachol) 40 mg PO QHS [facility] Last Admin: 01/03/19 21:12 Dose: 40 mg Documented by: Sertraline HCl (Zoloft) 25 mg PO DAILY [facility] Last Admin: 01/04/19 11:36 Dose: 25 mg Documented by: Sodium Chloride () 10 - 40 ml IV UD PRN PRN Reason: SALINE FLUSH Last Admin: 01/04/19 00:04 Dose: 10 ml Documented by: Spironolactone (Aldactone) 25 mg PO DAILY [facility] Last Admin: 01/04/19 11:45 Dose: 25 mg Documented by: Medical Necessity - Tobacco Use Smoking Status: Former smoker Tobacco Use: Non-smoker Assessment/Plan All Active Problems Anemia (Acute) GI bleed (Acute) Ascites (Acute) Abdominal distention (Acute) 1. Ascites unclear etiology - no tap due to not enough fluid. Continue po lasix/aldactone. Monitor I/O. No masses on CT abdomen. Concern for pulmonary hypertension / heart failure. LFTs are normal. BNP mildly elevated. CEA pending. -EGD with varices -CT liver biopsy today -no aspirin at dc. -CA125 elevated - pelvic US today. Pt still has all female anatomy intact. -Echocardiogram demonstrates normal LV systolic function, 60% EF, septal bounce, apical false tendon, moderately enlarged left atrium, 1-2+ MVI, 2+ TVI, 1+ PVI, aortic valve thickening and calcification, RVSP of 36 mmHg, diastolic dysfunction. 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 2. 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 no transfusion of blood this admission. Venofer x 3 done. PO iron at dc. -EGD and colon results on chart 3. Hypokalemia-resolved. 4. Pulmonary fibrosis - echo as above. Pulm fibrosis possibly contributing to cardiomyopathy/right heart failure/cor pulmonale/ascites. Aerosols added. Incentive spirometer. Needs referral to pulmonology as an outpatient. Off o2. 5. Mild thrombocytopenia-resolved 6. hx nicotine abuse 7. Depression - zoloft. 8. htn - stable DVT prophylaxis: SCDs Discharge planning: CT bx of liver pending. Pelvic US pending. This patient was seen by Bryn Villasenor PA-C under the supervision of Doctor Roberta. <Shawnee Granados - Last Filed: 01/04/19 15:28> - Physical Exam Vitals/I&O's: Vital Signs Temp Pulse Resp BP Pulse Ox 97.6 F L 72 18 134/68 H 93 01/04/19 11:43 01/04/19 11:43 01/04/19 11:43 01/04/19 11:43 01/04/19 11:43 Oxygen Flow Rate (L/min) 2 Oxygen Delivery Method Room Air Weight: 145 lb 4.554 oz Body Mass Index (BMI) 26.5 Orthostatic Vital Signs Start: 01/02/19 08:55 Freq: q24h Status: Active Protocol: Activity Type Activity Date Activity User E-Sign Co-Sign Detail Recorded Client Recorded Date Recorded By Document 01/03/19 06:33 AML [id number] 01/03/19 06:33 AML 01/03/19 06:33 Orthostatic Vitals Standing -Blood Pressure (90/60-120/80) 150/58 H -Extremity Use Right Arm -Pulse Rate (60-100) 81 Sitting -Blood Pressure (90/60-120/80) 142/67 H -Extremity Use Right Arm -Pulse Rate (60-100) 71 Lying -Blood Pressure (90/60-120/80) 137/57 H -Extremity Use Right Arm -Pulse Rate (60-100) 73 Intake and Output for Last 24 Hours 01/02/19 01/03/19 01/04/19 23:59 23:59 23:59 Intake Total 0 / 0 1000 / 1000 Output Total 700 / 700 3 / 3 Balance 1350 / 1350 -3 / -3 1000 / 1000 Laboratory Results 01/04/19 06:00: Hgb 7.9 L, Hct 26.9 L 01/04/19 06:00: PT 17.0 H, INR 1.4, APTT 40.1 H Current Medications Acetaminophen (Tylenol) 650 mg PO Q6H PRN PRN PRN Reason: Pain Score 1-3/Temp > 100.7 F Last Admin: 01/01/19 09:50 Dose: 650 mg Documented by: Albuterol/Ipratropium (Duoneb) 3 ml INHALATION Q6HWA.RT [facility] Last Admin: 01/04/19 13:00 Dose: Not Given Documented by: Amlodipine Besylate (Norvasc) 5 mg PO DAILY [facility] Last Admin: 01/04/19 11:38 Dose: 5 mg Documented by: Furosemide (Lasix) 40 mg PO DAILY [facility] Last Admin: 01/04/19 11:36 Dose: 40 mg Documented by: Sodium Chloride () 500 mls @ 15 mls/hr IV PRN PRN PRN Reason: Blood Transfusion Sodium Chloride () 250 mls @ 15 mls/hr IV .[id number] PRN PRN Reason: Saline Flush Last Infusion: 12/31/18 10:15 Dose: Infused Documented by: Pol[facility]accharide [facility] 150[facility] Last Admin: 01/04/19 11:35 Dose: 150 mg Documented by: Potassium Ch[facility] ([facility]) [facility] Last Admin: 01/04/19 11:35 Dose: 20 meq Documented by: Pravastatin Sodium (Pravachol) 40 mg PO QHS [facility] Last Admin: 01/03/19 21:12 Dose: 40 mg Documented by: Sertraline HCl (Zoloft) 25 mg PO DAILY [facility] Last Admin: 01/04/19 11:36 Dose: 25 mg Documented by: Sodium Chloride () 10 - 40 ml IV UD PRN PRN Reason: SALINE FLUSH Last Admin: 01/04/19 00:04 Dose: 10 ml Documented by: Spironolactone (Aldactone) 25 mg PO DAILY [facility] Last Admin: 01/04/19 11:45 Dose: 25 mg Documented by: Assessment/Plan Patient seen and examined. She had no complaints today. Abdominal distension has improved. She is due for pelvic USG and liver biopsy today. Review of systems is otherwise negative. Labs and vitals reviewed. o/e: Vital Signs Height 5 ft 2 in Weight: 145 lb 4.554 oz Weight in Pounds 145.3 lbs Pulse Ox 95 Temperature 98.2 F Pulse Rate [Standing] 81 Pulse Rate [Sitting] 71 Pulse Rate [Lying] 73 Pulse Rate 74 Respiratory Rate 18 Blood Pressure [Standing] 150/58 Blood Pressure [Sitting] 142/67 Blood Pressure [Lying] 137/57 Blood Pressure 140/57 Blood Pressure Position Sitting General: Alert, Oriented x3, Cooperative HEENT: Atraumatic, PERRLA, EOMI, Normocephalic Neck: Supple, No JVD, Negative Carotid Bruits Lungs: Rales - throughtout Cardiovascular: Regular rate, No murmurs Abdomen: Bowel Sounds Present, Soft, Non Tender Extremities: No edema, Capillary Refill Less than 3 Seconds Skin: No rashes, No breakdown Musculoskeletal: No Tenderness to Palpation of Joints or Extremities Neurological: Cranial nerves II-XII grossly intact Psych/Mental Status: Normal Affect, Appropriate, Alert and oriented to time, place, person, mood and affect Patient was scheduled to have liver biopsy today, but this was deferred per radiology. Pelvic ultrasound showed that she had scanty ascites which was not enough to tap. Pelvic ultrasound showed nonvisualized ovaries and showed a thickened endometrium measuring 5.1 mm with a small amount of endometrial fluid and no demonstrated endometrial mass. Moderate amount of fluid in the cul-de-sac with no significant amount of fluid in the abdomen. Discussed with radiology, and plan will be for liver biopsy tomorrow. We will keep patient n.p.o. past midnight. Ca1 25 can also be indicated of liver cirrhosis hence the urgent need for the liver biopsy to explain symptoms, the pelvic ultrasound did not show any ovarian mass. Rest of management as per Bryn Villasenor PA-C's note, which I have reviewed and endorsed. Code Visit Inpatient E&M: 68675 Subs Hosp L2
[2019-01-04 17:40] VITALS: BP 120/44; PULSE 77; RESP 18; TEMP 36.8; O2SAT 95
[2019-01-04 22:00] VITALS: BP 109/59; PULSE 70; RESP 18; TEMP 36.9; O2SAT 92
[2019-01-04] MEDS: Pravastatin 40 MG Tablet PO (22:01)
[2019-01-05] VITALS (14 sets, daily range): BP systolic 117–149; BP diastolic 31–62; PULSE 67–86; RESP 16–20; TEMP 36.6–37.2; O2SAT 90–99
--- NOTE | 2019-01-05 | LIV_PTH ---
PATIENT: ELLIOT MUNOZ LOC: PCU U#:[id number] AGE/SX: 83/F ROOM: [facility] RE12/30/[address]: Dr. Shawnee Granados MD : [id number] BED: 1 DIS: 01/05/2019 SPEC #: [id number] RECD: 01/05/19 12:37 STATUS: WENDIE REYasmani #: [id number] PAVEL: 01/05/19 00:[address]: Shawnee Granados DEPT: SURGICAL PATHOLOGY RECD BY: Jose Duran ENTERED: 01/05/19 12:37 SP TYPE: LIVER RES OTHR DR: MD Dr. Moody Pérez DO Dr. Yasser Omran, MD Tissues: Liver, NOS Procedures: PAS with Diastase (control) Trichrome (control) Special Stain Group II PAS Stain (control) Surgery Specimen Level V Retic (control) Iron Stain (control) HEADER OPERATION: CT-guided liver biopsy PRE-OP DIAGNOSIS: Cirrhosis TISSUE SUBMITTED: CT-guided liver biopsy 18 gauge core x3 MICROSCOPIC DIAGNOSIS Liver, CT-guided core biopsy: Liver parenchymal tissue with mild portal and lobular chronic inflammation. Negative for malignancy. See microscopic description and comment. SJ:rg 01/06/19 COMMENT Changes consistent with cirrhosis are not seen. Case has been reviewed in consultation with Dr. Scott who concurs with the above diagnosis. IDC:AM MICROSCOPIC DESCRIPTION Slides are reviewed. The liver parenchymal tissue with preserved lobular architecture. Hepatocytes show mild reactive changes. Focal sinusoidal dilatation is noted. Mild lobular chronic inflammatory cell infiltrates are noted. Portal areas show mild chronic inflammation. No piecemeal necrosis is noted. Iron stain shows 1+ iron in the kupffer cells in the canaliculi . Reticulin and trichrome stain are unremarkable and do not show significant increase in fibrosis. PAS stains with and without diastase are used in the evaluation of the specimen and do not show any abnormal accumulation of protein. All stains are performed with appropriate matched controls. GROSS DESCRIPTION Received in fixative is one container labeled with the patient's name and designated liver. The specimen consists of multiple elongated fragments of contreras soft tissue that in aggregate measure 2 x 0.3 x 0.1 cm. The entire specimen is submitted in one cassette. / MARIO:ludivina 01/05/19 TC:3 CPT: 84326, 13179 x5
--- NOTE | 2019-01-05 05:55 | CT_ITS ---
PROCEDURE: CT DIRECTED CORE LIVER BIOPSY INDICATION: Female, 83 years old. Cirrhosis. PHYSICIAN: Dr. Doreen Lang CONSENT: Written informed consent was obtained having explained the risks, benefits and alternatives in detail with the patient who accepted the risks and agreed to proceed. Laboratory review and clinical assessment was performed. CONSCIOUS SEDATION PROTOCOL: The Drugs used were: 1 mg Versed, IV., and 25 mcg Fentanyl, IV. The sedation time was: 20 minutes. Conscious sedation was started at 11:07 AM and terminated at 11:27 AM The conscious sedation protocol was independently monitored. RADIATION DOSAGE (If Supplied By Facility): CTDIvol = ( 15.5 ) mGy, DLP = ( 612.91 ) mGycm Individualized dose optimization techniques were used for this CT. TECHNIQUE: Using CT image guidance with image documentation, a suitable location in the right lobe of the liver was identified. Using an anterior approach, puncture of the liver was uneventful with an 18-gauge core needle system. 3 18-gauge core samples were obtained, and submitted in formalin to the pathologist for further assessment. Followup CT scan revealed no distinct sequelae. CT/Biopsy/Inj or Needle Placement IMPRESSION: 1. CT directed core needle biopsy of the liver, using CT image guidance with image documentation as described. 2. Conscious Sedation protocol utilized with independent monitoring. Electronically Signed: Kamaljit Logan, at 12:33 EST , Service support ,
[2019-01-05 06:09] LABS: Hematocrit 27.4 % (37-47); Hemoglobin 8.1 g/dL (12.0-15.0)
--- NOTE | 2019-01-05 08:06 | PCM.PN.SRG ---
Patient Problems: Active and Suspected Problems Anemia (Acute) GI bleed (Acute) Ascites (Acute) Abdominal distention (Acute) Subjective: The patient reports no nausea or vomiting and she says she is feeling well with no abdominal distention. - Physical Exam Vitals/I&O's: Vital Signs Temp Pulse Resp BP Pulse Ox 98.4 F 74 17 117/55 L 93 01/05/19 04:00 01/05/19 04:05 01/05/19 07:38 01/05/19 04:05 01/05/19 07:38 Oxygen Flow Rate (L/min) 2 Oxygen Delivery Method Room Air Weight: 145 lb 4.554 oz Body Mass Index (BMI) 26.5 Orthostatic Vital Signs Start: 01/02/19 08:55 Freq: q24h Status: Active Protocol: Activity Type Activity Date Activity User E-Sign Co-Sign Detail Recorded Client Recorded Date Recorded By Document 01/05/19 04:05 [id number] 01/05/19 04:08 [id number] 01/05/19 04:05 Orthostatic Vitals Standing -Blood Pressure (90/60-120/80) 124/58 H -Extremity Use Right Arm -Pulse Rate (60-100) 79 Sitting -Blood Pressure (90/60-120/80) 124/47 H -Extremity Use Right Arm -Pulse Rate (60-100) 70 Lying -Blood Pressure (90/60-120/80) 117/55 L -Extremity Use Right Arm -Pulse Rate (60-100) 74 Intake and Output for Last 24 Hours 01/03/19 01/04/19 01/05/19 23:59 23:59 23:59 Intake Total 1360 / 1360 120 / 120 Output Total 3 / 3 300 / 300 Balance -3 / -3 1060 / 1060 120 / 120 General: Alert, Oriented x3 Lungs: Normal air movement Cardiovascular: Regular rate, Regular Rhythm Abdomen: Soft, Non Tender, Non-Distended Laboratory Results 01/05/19 05:25: Hgb 8.1 L, Hct 27.4 L Current Medications Acetaminophen (Tylenol) 650 mg PO Q6H PRN PRN PRN Reason: Pain Score 1-3/Temp > 100.7 F Last Admin: 01/01/19 09:50 Dose: 650 mg Documented by: Albuterol/Ipratropium (Duoneb) 3 ml INHALATION Q6HWA.RT PRN PRN Reason: dyspnea, wheezing Amlodipine Besylate (Norvasc) 5 mg PO DAILY [facility] Last Admin: 01/04/19 11:38 Dose: 5 mg Documented by: Furosemide (Lasix) 40 mg PO DAILY [facility] Last Admin: 01/04/19 11:36 Dose: 40 mg Documented by: Sodium Chloride () 500 mls @ 15 mls/hr IV PRN PRN PRN Reason: Blood Transfusion Sodium Chloride () 250 mls @ 15 mls/hr IV .[id number] PRN PRN Reason: Saline Flush Last Infusion: 12/31/18 10:15 Dose: Infused Documented by: Pol[facility]accharide [facility] Last Admin: 01/04/19 11:35 Dose: 150 mg Documented by: Potassium Chloride (K-Dur) [facility] Last Admin: 01/05/19 07:43 Dose: Not Given Documented by: Pravastatin Sodium (Pravachol) 40 mg PO QHS [facility] Last Admin: 01/04/19 22:01 Dose: 40 mg Documented by: Sertraline HCl (Zoloft) 25 mg PO DAILY [facility] Last Admin: 01/04/19 11:36 Dose: 25 mg Documented by: Sodium Chloride () 10 - 40 ml IV UD PRN PRN Reason: SALINE FLUSH Last Admin: 01/04/19 00:04 Dose: 10 ml Documented by: Spironolactone (Aldactone) 25 mg PO DAILY [facility] Last Admin: 01/04/19 11:45 Dose: 25 mg Documented by: Medical Necessity - Tobacco Use Smoking Status: Former smoker Tobacco Use: Non-smoker Assessment/Plan All Active Problems Anemia (Acute) GI bleed (Acute) Ascites (Acute) Abdominal distention (Acute) 83-year-old female with ascites 1. The patient reports she is feeling better. She had transvaginal ultrasound yesterday which did not show any signs of overt malignancy. She is getting a liver biopsy today. She can likely be discharged after biopsy and follow-up with me for results. Gabriele Lopes MD Pager: [facility] [address] [place] [address], [address] [place] [address] Office:
[2019-01-05] MEDS: Sertraline 50 MG Tablet 25 MG PO (10:04)
[2019-01-05] MEDS: Spironolactone 25 MG Tablet PO (10:05)
[2019-01-05] MEDS: amLODIPine 5 MG Tablet PO (10:05)
[2019-01-05] MEDS: Furosemide 40 MG Tablet PO (10:05)
--- NOTE | 2019-01-05 11:02 | DCINST_ITS ---
- Discharge Diagnoses Current Active Problems: Current Active and Chronic Problems Anemia (Acute) GI bleed (Acute) Ascites (Acute) Abdominal distention (Acute) You will use the following diet at home:: Cardiac Your food should be the consistency of: Regular Your liquids should be the consistency of: Regular/Thin Discharge Activity: Return to Normal Activity Allergies/Adverse Reactions: Allergies WATER PILL Adverse Reaction (Uncoded 12/30/18 11:59) Other DIDNT FELL RIGHT Medications to take at Discharge Amlodipine Besylate 5 mg PO DAILY 12/30/18 Pravastatin Sodium 40 mg PO ACHS 12/30/18 Sertraline HCl 25 mg PO DAILY 12/30/18 Albuterol IH (ProAir) [Proair Hfa] 1 puff INHALATION Q6H PRN PRN #1 inhaler 01/05/19 Furosemide [Lasix] 40 mg PO DAILY #30 tab 01/05/19 Iron Polysaccharide Complex [Ferrex 150] 150 mg PO DAILYCM #30 cap 01/05/19 Potassium Chloride [K-Dur] 20 meq PO DAILY #30 tab 01/05/19 Spironolactone [Aldactone] 25 mg PO DAILY #30 tab 01/05/19 The following prescriptions were given: Spironolactone [Aldactone] 25 mg PO DAILY #30 tab [facility] Iron Polysaccharide Complex [Ferrex 150] 150 mg PO DAILYCM #30 cap Transmission Status: Pending to [facility] Potassium Chloride [K-Dur] 20 meq PO DAILY #30 tab [facility]: [facility] Furosemide [Lasix] 40 mg PO DAILY #30 tab Transmission [facility]: [facility] Albuterol IH (ProAir) [Proair Hfa] 1 puff INHALATION Q6H PRN PRN #1 inhaler PRN Reason: Sob &/Or Wheezing Transmission Status: Pending to [facility] Primary Care Physician: Ember Haskins MD [Primary Care Provider] - Please follow up with your Primary Care Physician in: 1-2 weeks Test Results: Test results from this visit will be discussed in further detail at your follow- up appointment, if applicable. Please Follow Up With: Gabriele Lopes MD When: 1-2 weeks Please Follow Up With: Brown,Ricco, DO When: 3-4 weeks Proposed Discharge Date: 01/05/19
[2019-01-05] MEDS: Midazolam 2 MG/2 ML Syringe IV (11:07)
[2019-01-05] MEDS: fentaNYL 100 MCG/2 ML Ampul IV (11:08)
--- NOTE | 2019-01-05 12:04 | NURSING ---
REPORT CALLED TO IVAN CHIU. PT TRANSFERRED BACK TO PCU VIA BED BY ROXIE.
[2019-01-05] MEDS: Iron Polysaccharide Complex 150 MG CAPSULE PO (12:43)
--- NOTE | 2019-01-05 12:59 | PHA.DC.MC ---
Pharmacy Service has performed discharge medication reconciliation and counseling for this patient. 1. ALBUTEROL INHALER 1 PUFF Q6H PRN SOB/WHEEZING 2. FUROSEMIDE 40MG PO DAILY 3. SPIRONOLACTONE 25MG PO DAILY 4. POTASSIUM CHLORIDE 20MEQ PO DAILY 5. FERREX 150MG PO DAILYCM The patient's discharge medication list was reviewed for discrepancies and discrepancies were resolved. Home Medications Amlodipine Besylate 5 mg PO DAILY 12/30/18 Pravastatin Sodium 40 mg PO ACHS 12/30/18 Sertraline HCl 25 mg PO DAILY 12/30/18 Albuterol IH (ProAir) [Proair Hfa] 1 puff INHALATION Q6H PRN PRN #1 inhaler 01/05/19 Furosemide [Lasix] 40 mg PO DAILY #30 tab 01/05/19 Iron Polysaccharide Complex [Ferrex 150] 150 mg PO DAILYCM #30 cap 01/05/19 Potassium Chloride [K-Dur] 20 meq PO DAILY #30 tab 01/05/19 Spironolactone [Aldactone] 25 mg PO DAILY #30 tab 01/05/19 The patient was counseled on the following discharge medications and changes in medications for homegoing were reviewed. The Reason for Use, instructions for use, and potential side effects were reviewed for all new medications. The patient's questions regarding all of their medications were answered. The patient was able to verbally demonstrate an understanding of their discharge medications.
--- NOTE | 2019-01-05 14:12 | PCM.DC.SUM ---
<HamiltonRichardy - Last Filed: 01/05/19 14:12> Discharge Date and Diagnosis Date of Admission: 12/30/18 Date of Discharge: 01/05/19 - Primary Discharge Diagnosis Ascites unclear etiology Chronic blood loss anemia 2/2 suspected GI bleed Esophageal varices Elevated CA125 Pulmonary Fibrosis Mild thrombocytopenia Hx Nicotine abuse Depression HTN - Secondary Discharge Diagnosis Chronic Problems Hypertension (Chronic) High cholesterol (Chronic) Hospital Course and Treatment Imaging Results: 01/05/19 05:55 Biopsy/Inj or Needle Placement [CT] AM (NON MEDS) Consults: General Surgery - Marian[place] Operations: None Procedures: 2-D Echocardiogram Summary of Care Provided: Hospital course: The patient is a 83 year old F with pmhx as above who presented to the ER with abdominal distention worsening over the past month. She was treated as an outpatient with lasix with little improvement. She had ascites on CT and Hgb was low at 8.4 in the ER with microcytosis and a positive hemoccult. Her aspirin was stopped, she was placed on lasix and aldactone, and admitted to the PCU. CXR showed interstitial fibrosis. CT also showed hepatosplenomegaly, contracted GB with stones, and chronic interstitial fibrosis in the lungs. She had some hypoxia at night and aerosols and incentive spirometer were added to good effect. BNP was mildly elevated. Echo was obtained showed good EF, septal bounce, diastolic dysfunction, enlarged left atrium, 1-2+ MVI, 2+ TVI, 1+ PVI, RVSP 36mmHg, and possivle ventricular non-compaction cardiomyopathy. Iron studies were obtained for anemia and had low iron and iron say, normal TIBC. She received venofer x 3 while here and did not require blood transfusion. LDH was negative. LFTs were normal. Paracentesis was requested however there was not enough fluid to tap. EGD showed esophageal varices. Colonoscopy was unremarkable. CEA was normal, however CA125 was elevated - follow up transvaginal ultrasound was unremarkable. Liver biopsy was obtained and is pending. The patient remained asymptomatic for anemia and blood counts remained stable without further intervention. She was discharged home in stable condition. I have recommended that she follow up with General surgery for her biopsy results in 1-2 weeks, with pulmonary medicine in 3-4 weeks regarding her pulmonary fibrosis, and with her PCP in 1-2 weeks. This patient was seen by Bryn Villasenor PA-C under the supervision of Doctor Roberta. [] - Physical Exam Vitals/I&O's: Vital Signs Temp Pulse Resp BP Pulse Ox 97.8 F 86 18 140/59 H 95 01/05/19 12:30 01/05/19 12:30 01/05/19 12:30 01/05/19 12:30 01/05/19 12:36 Oxygen Flow Rate (L/min) [4] 2 Oxygen Flow Rate (L/min) [3] 2 Oxygen Flow Rate (L/min) [2] 2 Oxygen Flow Rate (L/min) 2 Oxygen Delivery Method [4] Nasal Cannula Oxygen Delivery Method [3] Nasal Cannula Oxygen Delivery Method [2] Nasal Cannula Oxygen Delivery Method [1 ( Room Air Initial Baseline)] Oxygen Delivery Method Room Air Weight: 145 lb 4.554 oz Body Mass Index (BMI) 26.5 Intake and Output for Last 24 Hours 01/03/19 01/04/19 01/05/19 23:59 23:59 23:59 Intake Total 1360 / 1360 255 / 255 Output Total 3 / 3 300 / 300 Balance -3 / -3 1060 / 1060 255 / 255 General: Alert, Oriented x3, Cooperative HEENT: Atraumatic, PERRLA, EOMI, Normocephalic Neck: Supple, No JVD, Negative Carotid Bruits Lungs: Clear to auscultation, Normal air movement Cardiovascular: Regular rate, Murmur - 2/6 systolic murmur best at LSB and apex Abdomen: Bowel Sounds Present, Soft, Non Tender Extremities: No edema, Capillary Refill Less than 3 Seconds Skin: No rashes, No breakdown Musculoskeletal: No Tenderness to Palpation of Joints or Extremities Neurological: Cranial nerves II-XII grossly intact Psych/Mental Status: Normal Affect, Appropriate, Alert and oriented to time, place, person, mood and affect Laboratory Results 01/05/19 05:25: Hgb 8.1 L, Hct 27.4 L Discharge Diet: Low fat/ Low Cholesterol, 2000 mg Sodium Diet Discharge Activity: Return to Normal Activity Home Medications: Medications to take at Discharge Amlodipine Besylate 5 mg PO DAILY 12/30/18 Pravastatin Sodium 40 mg PO ACHS 12/30/18 Sertraline HCl 25 mg PO DAILY 11/14/19 Albuterol IH (ProAir) [Proair Hfa] 1 puff INHALATION Q6H PRN PRN #1 inhaler 01/05/19 Furosemide [Lasix] 40 mg PO DAILY #30 tab 01/05/19 Iron Polysaccharide Complex [Ferrex 150] 150 mg PO DAILYCM #30 cap 01/05/19 Potassium Chloride [K-Dur] 20 meq PO DAILY #30 tab 01/05/19 Spironolactone [Aldactone] 25 mg PO DAILY #30 tab 01/05/19 Following Prescrptions Were Given to Patient: Spironolactone [Aldactone] 25 mg PO DAILY #30 tab Transmission Status: Received by [facility] Iron Polysaccharide Complex [Ferrex 150] 150 mg PO DAILYCM #30 cap Transmission Status: Received by [facility] Potassium Chloride [K-Dur] 20 meq PO DAILY #30 tab Transmission Status: Received by [facility] Furosemide [Lasix] 40 mg PO DAILY #30 tab Transmission Status: Received by [facility] Albuterol IH (ProAir) [Proair Hfa] 1 puff INHALATION Q6H PRN PRN #1 inhaler PRN Reason: Sob &/Or Wheezing Transmission Status: Received by [facility] Primary Care Physician: Ember Haskins MD [Primary Care Provider] - Please follow up with your Primary Care Physician in: 1-2 weeks Please Follow Up With: Gabriele Lopes MD When: 1-2 weeks Please Follow Up With: Ricco Patterson DO When: 3-4 weeks Disposition: Home Minutes spent on discharge:: 35 Patient Condition:: Stable Medical Necessity - Tobacco Use Smoking Status: Former smoker Tobacco Use: Non-smoker Meaningful Use Info Meaningful Use Diagnoses (Choose all that apply): None applicable <Shawnee Granados - Last Filed: 01/05/19 16:29> Discharge Date and Diagnosis - Secondary Discharge Diagnosis Chronic Problems Hypertension (Chronic) High cholesterol (Chronic) Hospital Course and Treatment Summary of Care Provided: Patient seen by Bryn Villasenor PA-C under my supervision The patient is a 83 year old F with a past medical history as listed was admitted through the ED with a complaint of worsening abdominal distention. She had been treated with diuresis with little effects. On admission she was found to be anemic and CT of the abdomen showed ascites. Aspirin was stopped and she was placed on diuresis with Lasix and Aldactone. CT of the abdomen also showed hepatosplenomegaly with contracted gallbladder with stones and chronic interstitial fibrosis in the lungs. 2D echo done showed EF of 60% with normal left ventricular systolic function and evidence of diastolic dysfunction with no regional wall motion abnormalities seen. RVSP was 36 mmHg. Patient received Venofer on account of an studies which showed low iron and low iron saturation. Liver enzymes remain normal and paracentesis was requested but this could not be done as there was not enough fluid per radiology to tap. She had an EGD and colonoscopy which showed esophageal varices. Colonoscopy was essentially unremarkable. Cancer markers done showed normal carcinoembryonic antigen but Ca1 25 was markedly elevated. She therefore had a transvaginal ultrasound which was unremarkable. Decision was made to order a liver biopsy and this was done on the day of discharge. Patient remained stable after liver biopsy and hemoglobin stabilized. She was discharged home and is to follow-up with general surgery as well as pulmonology with her primary care doctor. Patient seen and examined. She felt much better and had no complaints. Review of systems otherwise negative. Labs and vitals reviewed. Medication reviewed and reconciled. o/e: Vital Signs Height 5 ft 2 in Weight: 145 lb 4.554 oz Weight in Pounds 145.3 lbs Pulse Ox [AMBULATING on Room 90 Air] Pulse Ox [At REST on Room Air] 95 Pulse Ox 94 Temperature 97.8 F Pulse Rate [Standing] 79 Pulse Rate [Sitting] 70 Pulse Rate [Lying] 74 Pulse Rate [5] 81 Pulse Rate [4] 72 Pulse Rate [3] 73 Pulse Rate [2] 74 Pulse Rate [1 (Initial 82 Baseline)] Pulse Rate 86 Respiratory Rate [5] 20 Respiratory Rate [4] 18 Respiratory Rate [3] 19 Respiratory Rate [2] 18 Respiratory Rate [1 (Initial 16 Baseline)] Respiratory Rate 18 Blood Pressure [Standing] 124/58 Blood Pressure [Sitting] 124/47 Blood Pressure [Lying] 117/55 Blood Pressure [5] 122/39 Blood Pressure [4] 149/41 Blood Pressure [3] 134/44 Blood Pressure [2] 142/47 Blood Pressure [1 (Initial 143/61 Baseline)] Blood Pressure 140/59 Blood Pressure Position Semi-Fowlers [] General: Alert, Oriented x3, Cooperative HEENT: Atraumatic, PERRLA, EOMI, Normocephalic Neck: Supple, No JVD, Negative Carotid Bruits Lungs: clear to auscultation, no wheezes or crackles. Cardiovascular: Regular rate, No murmurs Abdomen: Bowel Sounds Present, Soft, Non Tender Extremities: No edema, Capillary Refill Less than 3 Seconds Skin: No rashes, No breakdown Musculoskeletal: No Tenderness to Palpation of Joints or Extremities Neurological: Cranial nerves II-XII grossly intact Psych/Mental Status: Normal Affect, Appropriate, Alert and oriented to time, place, person, mood and affect Plan is as above. Rest as per Bryn Villasenor PA-C's note which I have reviewed and endorsed. - Physical Exam Vitals/I&O's: Vital Signs Temp Pulse Resp BP Pulse Ox 97.8 F 86 18 140/59 H 95 01/05/19 12:30 01/05/19 12:30 01/05/19 12:30 01/05/19 12:30 01/05/19 12:36 Oxygen Flow Rate (L/min) [4] 2 Oxygen Flow Rate (L/min) [3] 2 Oxygen Flow Rate (L/min) [2] 2 Oxygen Flow Rate (L/min) 2 Oxygen Delivery Method [4] Nasal Cannula Oxygen Delivery Method [3] Nasal Cannula Oxygen Delivery Method [2] Nasal Cannula Oxygen Delivery Method [1 ( Room Air Initial Baseline)] Oxygen Delivery Method Room Air Weight: 145 lb 4.554 oz Body Mass Index (BMI) 26.5 Intake and Output for Last 24 Hours 01/03/19 01/04/19 01/05/19 23:59 23:59 23:59 Intake Total 1360 / 1360 255 / 255 Output Total 3 3 300 / 300 Balance -3 / -3 1060 / 1060 255 / 255 Laboratory Results 01/05/19 05:25: Hgb 8.1 L, Hct 27.4 L Code Visit Inpatient E&M: 20515 Disch Hosp
== END 2019-01-05 13:45 | disposition home or self-care (01) | DRG 812 ==
LOC: ED 15:17 → PCU 15:57
PROVIDERS: Family Medicine; Internal Medicine; Physician Assistant; Radiology Diagnostic Radiology; Surgery; Admitting Provider Internal Medicine; Emergency Provider Emergency Medicine; Family Provider Internal Medicine Infectious Disease; PCP Internal Medicine Infectious Disease; Referring Provider Internal Medicine; Visit Provider Student in an Organized Health Care Education/Training Program
PROC: 0DJD8ZZ Inspection of Lower Intestinal Tract, Via Natural or Artificial Opening Endoscopic (ICD-10-PCS; CPT 45378; principal; 2019-01-03 11:10)
DX: D50.0 Iron deficiency anemia secondary to blood loss (chronic) (principal); R18.8 Other ascites; I85.00 Esophageal varices without bleeding; K92.2 Gastrointestinal hemorrhage, unspecified; E87.6 Hypokalemia; K29.80 Duodenitis without bleeding; J84.10 Pulmonary fibrosis, unspecified; F32.9 Major depressive disorder, single episode, unspecified; I10 Essential (primary) hypertension; E78.00 Pure hypercholesterolemia, unspecified; D69.6 Thrombocytopenia, unspecified; R97.1 Elevated cancer antigen 125 [CA 125]; Z87.891 Personal history of nicotine dependence
CPT/HCPCS: 36415; 71046; 74176; 74177; 76705; 76830; 77012; 80048; 80053; 80076; 81001; 82274; 82378; 83540; 83550; 83615; 83690; 83880; 85014; 85018; 85025; 85027; 85610; 85730; 86304; 88305; 88307; 88313; 93005; 93306; 94640; 99156; 99157; 99251; 99285; J1756; J7030; J7040; J7050; J7120; Q9967; A4216; G0463

== ENCOUNTER → 2019-02-17 12:13 | Outpatient (CLI) | payer MEDICARE, OTHER, SELFPAY ==
[2019-01-03 10:13] VITALS: BMI 26.5
[2019-02-17 14:17] LABS: Absolute Lymphocyte Count 0.95 X10^3/uL (0.83-4.51); Absolute Neutrophil Count 4.1 X10^3/uL (2.0-7.7); Basophil# 0.04 X10^3/uL; Basophil% 0.7 % (0-1); Eosinophil# 0.09 X10^3/uL; Eosinophils% 1.6 % (0-5); Hematocrit 36.7 % (37-47); Hemoglobin 11.4 g/dL (12.0-15.0); Lymphocyte # 0.95 X10^3/ul (4.0); Lymphocyte % 16.4 % (19-41); Mean Corp Hgb Conc 31.1 g/dL (32-36); Mean Corpuscular Hgb 25.6 pg (27.0-32.0); Mean Corpuscular Volume 82.5 fL (81-99); Mean Platelet Vol. 10.3 fl (6.2-12.0); Monocyte# 0.55 X10^3/uL; Monocyte% 9.5 % (0-10); NRBC Flagged by Analyzer 0 % (0-5); Neutrophil # 4.13 X10^3/uL (2.7-7.7); Neutrophil % 71.5 % (47-70); POSITIVE MORPHOLOGY YES; Platelet Count 111 K/mm3 (150-450); Red Blood Count 4.45 M/mm3 (4.2-5.4); White Blood Count 5.8 K/mm3 (4.4-11.0)
[2019-02-17 14:21] LABS: Differential Indicated SCAN CRITERIA MET
[2019-02-17 14:29] LABS: Vitamin B12 1485 pg/mL (211-911)
[2019-02-17 14:41] LABS: ALB/GLOB Ratio 0.7 RATIO (0.9-2.4); AST(SGOT) 37 U/L (15-37); Alanine Aminotransfer ALT/SGPT 32 U/L (13-56); Albumin, Serum 3.1 g/dL (3.2-5.0); Alkaline Phosphatase 120 U/L (45-117); Anion Gap 6 (5-15); Anisocytosis 2+; BUN 11 mg/dL (7-18); BUN/Creat Ratio 16.2 RATIO (10-20); Calcium,Total 8.3 mg/dL (8.5-10.1); Chloride 109 mmol/L (98-107); Cholesterol 159 mg/dL (200); Creatinine, Serum 0.68 mg/dL (0.55-1.02); Differential Comment SCANNED; EST Glomerular Filtration Rate 88 mL/min (>60); Est Glom Filt Rate - Afr Amer 107 mL/min (>60); Ferritin 59 ng/mL (8-252); Globulin 4.7 g/dL (2.2-4.2); Glucose 100 mg/dL (74-106); High Density Lipoprotein 57 mg/dL; Hypochromasia 1+; Iron 30 ug/dL (50-170); Iron Binding Capacity,Total 291 ug/dL (250-450); Macrocytosis 1+; Magnesium 1.9 mg/dL (1.6-2.6); Microcytosis 1+; Potassium 3.3 mmol/L (3.5-5.1); Protein, Total 7.8 g/dL (6.4-8.2); Sodium Level 141 mmol/L (136-145); Thyroid Stim Hormone (TSH) 3.39 uIU/mL (0.358-3.74); Triglycerides 109 mg/dL; Very Low Density Lipoprotein 22 mg/dL (5-40)
== END ==
PROVIDERS: Family Provider Family Medicine; PCP Family Medicine; Referring Provider Family Medicine; Visit Provider Family Medicine
DX: R18.8 Other ascites (principal); D64.9 Anemia, unspecified; I10 Essential (primary) hypertension; E78.00 Pure hypercholesterolemia, unspecified; E87.6 Hypokalemia
CPT/HCPCS: 36415; 80053; 80061; 82607; 82728; 82746; 83540; 83550; 83735; 84443; 85025

== ENCOUNTER → 2019-02-23 12:18 | Outpatient (CLI) | payer MEDICARE, OTHER, SELFPAY ==
[2019-01-03 10:13] VITALS: BMI 26.5
--- NOTE | 2019-02-23 12:22 | RAD_ITS ---
STUDY: X-RAY CHEST REASON FOR EXAM: Female, 83 years old. bibasilar crackles TECHNIQUE: PA and lateral views of the chest. COMPARISON: 12/30/2018 FINDINGS: Peripheral and basilar dominant reticular opacities are again identified with some progression particularly in the upper lung zones since the prior study. No superimposed airspace consolidation. There is no demonstrated pleural abnormality. There is mild cardiac enlargement. Normal mediastinum and epi. Normal visualized pulmonary arteries. There is atherosclerotic calcification of the aortic arch with tortuosity. S-shaped scoliosis of the thoracolumbar spine. Diffuse osteopenia noted. Normal visualized ribs, clavicles, and shoulders. There is no demonstrated abnormality of the visualized soft tissue structures of the upper abdomen. RAD/Chest PA and Lateral IMPRESSION: Worsening pulmonary fibrosis. No superimposed airspace consolidation/pneumonia. Electronically Signed: Chato Weber MD (Brooks) at 8:10 EST , Service support ,
== END ==
PROVIDERS: Family Provider Family Medicine; PCP Family Medicine; Referring Provider Family Medicine; Visit Provider Family Medicine
DX: R09.89 Other specified symptoms and signs involving the circulatory and respiratory systems (principal)
CPT/HCPCS: 71046

== ENCOUNTER → 2019-03-02 09:55 | Outpatient (CLI) | payer MEDICARE, OTHER, SELFPAY ==
[2019-01-03 10:13] VITALS: BMI 26.5
--- NOTE | 2019-03-02 09:59 | US_ITS ---
STUDY: ABDOMINAL ULTRASOUND - RIGHT UPPER QUADRANT REASON FOR VISIT: Female, 83 years old THICKENED ENDO, ABDOMEN BLOATING TECHNIQUE: Ultrasound evaluation of the right upper quadrant was performed with real-time and static rodriguez-scale imaging. TECHNICAL QUALITY: Adequate. COMPARISON: None. FINDINGS: Liver: The liver measures 11.8 cm. There is a heterogeneous echogenicity of the liver. The bile ducts are within normal limits. There is hepatic color flow. The direction of portal flow is hepatopetal. There is no demonstrated mass lesion. Gallbladder: Normal distended gallbladder. The gallbladder wall is thickened and measures 11 mm. There is a positive sonographic Mejia''s sign. There is pericholecystic fluid. There are no gallstones. Common Bile Duct (C.B.D.): The common bile duct measures 5.0 mm. Pancreas: Normal size of the head, body and tail of the pancreas. There is normal echogenicity of the pancreas. There is no demonstrated pancreatic mass or cyst. Right Kidney: Normal size of the right kidney. The right kidney measures 9.7 cm x 4.8 cm x 5.0 cm. Normal renal cortex. The right cortex measures 1.9 cm. There is no demonstrated renal mass or cyst. There is no right hydronephrosis. US/Abdomen Limited IMPRESSION: Ascites. Thickened gallbladder wall and positive Mejia''s sign. Electronically Signed: Kamaljit Logan, at 13:55 EST , Service support ,
--- NOTE | 2019-03-02 09:59 | US_ITS ---
STUDY: ULTRASOUND OF THE FEMALE PELVIS - COMPLETE REASON FOR EXAM: Female, 83 years old. THICKENED ENDO LMP: The patient is postmenopausal. TECHNIQUE: Transabdominal and Transvaginal TECHNICAL QUALITY: Adequate. COMPARISON: None. FINDINGS: The uterus is anteverted and is in a midline position. The uterus measures 6.5 cm x 3.9 cm x 2.1 cm. Normal uterine cervix. The endometrium is thickened and measures 5 mm in thickness, and is fluid distended. There is no demonstrated endometrial mass. There is no demonstrated myometrial mass. I.U.D. - The patient does not have an I.U.D. The right ovary is non-visualized. The left ovary is non-visualized. There is a large volume of fluid in the cul-de-sac. The pre void volume of the bladder was 55 ml. Polycystic ovary disease: No. US/Transvaginal Non- IMPRESSION: Thickened and fluid filled endometrium. Large amount of free fluid is seen in the pelvis. Electronically Signed: Kamaljit Logan, at 13:24 EST , Service support ,
== END ==
PROVIDERS: Family Provider Family Medicine; PCP Family Medicine; Referring Provider Family Medicine; Visit Provider Family Medicine
DX: R93.89 Abnormal findings on diagnostic imaging of other specified body structures (principal)
CPT/HCPCS: 76705; 76830

== ENCOUNTER 2019-03-02 11:17 | Emergency (ER) | payer MEDICARE, OTHER, SELFPAY ==
[2019-01-03 10:13] VITALS: BMI 26.5
[2019-03-02 11:17] VITALS: BP 147/77; PULSE 76; RESP 16; TEMP 36.8; O2SAT 96; BMI 27.1
--- NOTE | 2019-03-02 12:17 | EKG12_ITS ---
Test Reason : DIZZINESS Blood Pressure : / mmHG Vent. Rate : 070 BPM Atrial Rate : 070 BPM P-R Int : 174 ms QRS Dur : 126 ms QT Int : 442 ms P-R-T Axes : 031 -17 072 degrees QTc Int : 477 ms Normal sinus rhythm Non-specific intra-ventricular conduction block Cannot rule out Septal infarct , age undetermined Possible Lateral infarct (cited on or before 30-DEC-2018) Abnormal ECG Confirmed by FLAQUITA ROMERO, HUI ([id number]), video editor VIRGIL RODRIGUEZ ([id number]) on 03/04/2019 10:02:53 AM Referred By: KEVIN Confirmed By:RAIMUNDO SAMS MD
--- NOTE | 2019-03-02 12:18 | ED.VISSUMM ---
- ER Visit Summary Date of Service: 03/02/19 Chief Complaint: Lightheadedness History of Present Illness: The patient is a 83 F 3 of abdominal ascites of uncertain etiology and pulmonary fibrosis. They have done some work-up of her ascites without any specific cause. States that she has had diarrhea worse last several days and today she felt lightheaded. Worse with standing. She denies any vomiting. No fever. No melena. No headache or chest pain. No strokelike symptoms. Physical Examination: Older female no acute distress vital signs are stable afebrile. H EENT exam unremarkable. No facial droop. Neck nontender no lymphadenopathy. Lungs clear to auscultation bilaterally. Heart regular rhythm and she has a systolic ejection murmur approximately a 3 out of 6. Rate about 70. Abdomen soft. Mild ascites. No peritoneal signs. Nontender. Positive bowel sounds. No hernias or masses. No signs of obstruction. Patient is moving all 4 extremities. Neurovascular intact. Calves are nontender without edema or cords. Dorsi plantarflexion intact. Normal headwaiter/headwaitress strength. NIH score is 0. She is awake and alert she is a normal neurologic exam with no focal motor deficits. Test Results: CBC shows normal white count of 5. Hemoglobin 10.8 which is her baseline chronic anemia. Electrolytes show mild hypokalemia past calcium at 3.3. Normal gap of 5. Normal BUN and creatinine at 10 and 0.6. Normal glucose. EKG sinus rhythm rate of 70 with no acute signs of NE or ischemia chronic left bundle branch block. And no change from prior EKG from December 2018. Orthostatic vital signs were done by nursing were negative. Emergency Department Course and Treatment: Patient with lightheadedness worse with standing. This may be from volume depletion from her diarrhea. She has a normal neurologic exam. Screening labs and EKG will be obtained. Repeat exam at 1320 p.m. patient is doing well. Repeat neurologic exam normal. Family scarred with her being discharged home. Treatment Plan: Rest. Follow-up. Fluids. Imodium for the diarrhea. Disposition: Discharge Impression: Lightheadedness Diarrhea Mild hypokalemia This note was generated with Other Machine dictation software. It may contain incorrect words, spelling, and punctuation that were not noted in review of the chart prior to signing ED Disposition - Plan for ED Patient: Referrals: Jose Eduardo Patrick MD [Primary Care Provider] -
[2019-03-02 12:22] VITALS: BP 128/77; BP 142/93; BP 146/73; PULSE 68; PULSE 72; PULSE 74
[2019-03-02 12:44] LABS: Absolute Lymphocyte Count 0.88 X10^3/uL (0.83-4.51); Basophil# 0.06 X10^3/uL; Basophil% 1.1 % (0-1); Eosinophils% 1.8 % (0-5); Hematocrit 37.7 % (37-47); Hemoglobin 11.8 g/dL (12.0-15.0); Lymphocyte # 0.88 X10^3/ul (4.0); Lymphocyte % 15.7 % (19-41); Mean Corp Hgb Conc 31.3 g/dL (32-36); Mean Corpuscular Hgb 26.3 pg (27.0-32.0); Mean Corpuscular Volume 84.2 fL (81-99); Monocyte# 0.55 X10^3/uL; Monocyte% 9.8 % (0-10); NRBC Flagged by Analyzer 0 % (0-5); Neutrophil # 3.98 X10^3/uL (2.7-7.7); Neutrophil % 71.2 % (47-70); POSITIVE MORPHOLOGY YES; Platelet Count 102 K/mm3 (150-450); RBC Distribution Width CV 26.4 % (11.6-14.6); Red Blood Count 4.48 M/mm3 (4.2-5.4); White Blood Count 5.6 K/mm3 (4.4-11.0)
[2019-03-02 12:45] LABS: Differential Indicated SCAN CRITERIA MET
[2019-03-02 12:48] LABS: Anion Gap 5 (5-15); BUN 10 mg/dL (7-18); BUN/Creat Ratio 16.2 RATIO (10-20); Calcium,Total 8.6 mg/dL (8.5-10.1); Chloride 110 mmol/L (98-107); Creatinine, Serum 0.62 mg/dL (0.55-1.02); EST Glomerular Filtration Rate 99 mL/min (>60); Est Glom Filt Rate - Afr Amer 119 mL/min (>60); Estimated Creatinine Clearance 33.29 ml/min; Glucose 99 mg/dL (74-106); Potassium 3.3 mmol/L (3.5-5.1); Sodium Level 142 mmol/L (136-145)
[2019-03-02 13:05] LABS: Platelet Estimate SLT DEC (ADEQ)
[2019-03-02 13:06] LABS: Hypochromasia 1+; Microcytosis 1+; Polychromasia RARE
[2019-03-02 13:18] VITALS: BP 131/75; PULSE 66; RESP 16; O2SAT 99
--- NOTE | 2019-03-02 13:31 | ED.DEP ---
ED Disposition - Plan for ED Patient: Disposition: Home or Assisted Living Instructions: DIZZINESS, Unk Cause Referrals: Jose Eduardo Patrick MD [Primary Care Provider] - 3-5 Days if not improving Additional Instructions: Plenty of fluids and rest. Follow-up with Dr. Villagomez or if not improving. Follow-up for further evaluation of your abdominal ascites. Imodium for your diarrhea.
[2019-03-02 13:43] VITALS: BP 131/65; PULSE 74; RESP 18; O2SAT 99
== END 2019-03-02 13:44 | disposition home or self-care (01) ==
PROVIDERS: Emergency Provider Emergency Medicine; Family Provider Family Medicine; PCP Family Medicine
DX: R42 Dizziness and giddiness (principal); R19.7 Diarrhea, unspecified; E87.6 Hypokalemia; D53.9 Nutritional anemia, unspecified; I44.7 Left bundle-branch block, unspecified; R01.1 Cardiac murmur, unspecified; J84.10 Pulmonary fibrosis, unspecified; R18.8 Other ascites; R93.89 Abnormal findings on diagnostic imaging of other specified body structures
CPT/HCPCS: 76705; 76830; 80048; 85025; 93005; 99285; A4216

== ENCOUNTER → 2019-03-04 11:46 | Outpatient (CLI) | payer MEDICARE, OTHER, SELFPAY ==
[2019-03-02 11:17] VITALS: BMI 27.1
[2019-03-05 15:25] LABS: Cancer Antigen 125 262.8 U/mL (0.0-38.1); Carbohydrate AG 19-9 170 U/mL (0-35); Carcinoembryonic Antigen 2.5 ng/mL (0.0-4.7)
== END ==
PROVIDERS: Visit Provider Obstetrics & Gynecology
DX: R18.8 Other ascites (principal); R97.8 Other abnormal tumor markers
CPT/HCPCS: 36415; 82378; 86301; 86304

== ENCOUNTER → 2019-03-08 13:22 | Outpatient (CLI) | payer MEDICARE, OTHER, SELFPAY ==
[2019-03-02 11:17] VITALS: BMI 27.1
--- NOTE | 2019-03-08 | FLU_PTH ---
PATIENT: ELLIOT MUNOZ LOC: U#:[id number] AGE/SX: 89/F ROOM: RE03/08/[address]: Dr. Brunilda Coats MD : 1935 BED: DIS: SPEC #: [id number] RECD: 03/08/19 15:29 STATUS: WENDIE OLIVASYasmani #: [id number] PAVEL: 03/08/19 00:[address]: Brunilda Prince DEPT: CYTOLOGY RECD BY: Jagruti Light ENTERED: 03/09/19 11:31 SP TYPE: Fluid OTHR DR: Dr. Jose Eduardo Patrick MD Tissues: PARACENTESIS FLUID Procedures: Special Stain Group II Surgery Specimen Level IV Cytospin Fluid HEADER OPERATION: Paracentesis PRE-OP DIAGNOSIS: Ascites TISSUE SUBMITTED: Paracentesis fluid for cytology DIAGNOSIS CYTOLOGY Paracentesis fluid for cytology (cytospin and cell block): No evidence of malignancy. See comment. AM:ludivina 03/11/19 COMMENT Immunohistochemistry ([id number]) supports the above diagnosis. This case was reviewed and diagnosis discussed with Dr. Rahman on 03/11/19 at 9:30 a.m. CYTOLOGY STUDY Slides are reviewed. CYTOLOGY GROSS Received is 120 ml of hazy yellow fluid labeled with the patient's name and and designated per the requisition as paracentesis. Submitted for cytology preparation including cell block. / ludivina 03/09/19 TC:5 CPT: 93609, 59658
--- NOTE | 2019-03-08 | IMM_PTH ---
PATIENT: ELLIOT MUNOZ LOC: U#:[id number] AGE/SX: 89/F ROOM: RE03/08/[address]: Dr. Brunilda Coats MD : 1935 BED: DIS: SPEC #: [id number] RECD: 03/11/19 10:13 STATUS: WENDIE REQ #: [id number] PAVEL: 03/08/19 00:[address]: Brunilda Prince DEPT: IMMUNOHISTOCHEMISTRY RECD BY: Yuliana Pedraza ENTERED: 03/11/19 10:15 SP TYPE: IMMUNO OTHR DR: Dr. Jose Eduardo Patrick MD Tissues: PARACENTESIS FLUID Procedures: Mammoglobin (initial) Anup Ret (add) CD45 (add) CK20 (add) CK5-6 (add) CK7 (add) CK8 (add) MACRO (add) P53 (add) Vimentin (add) Pankeratin (add) PHYSICIAN & INSTITUTION [place] [address] SPECIMEN INFORMATION: Tissue Source: Paracentesis fluid Clinical Info: Ascites Specimen Number: [id number] CPT code: 81542, 59149 x10 METHODOLOGY: Deparaffinized sections of prefer/formalin-fixed tissue or PAP/DQ stained slides are incubated with monoclonal/polyclonal antibodies/oligonucleotide probes. Localization is made via biotin free immunoperoxidase method. Appropriate controls are performed and reacted as expected. Results on target cell population are indicated in the following table: RESULTS: ANTIBODY / CLONE RESULT Mammaglobin (31A5) negative AE1-3 (AE1/AE3/PCK26) positive CK7 (OV-TL12/30) positive CK8 (79vaolB84) positive CK20 (KS20.8) negative CD45 (RP2/18) positive Vimentin (V9) positive Macro (HAM-56) positive CALRET (polyclonal) positive CK5-6 (D5 & 1684) positive P53 (DO-7) negative These tests were developed and their performance characteristics determined by [facility]. They may not have been cleared or approved by the U.S. Food and Drug Administration. The FDA has determined that such clearance or approval is not necessary. The above immunohistochemical/dualISH markers are ordered and reviewed by the Pathologist. INTERPRETATION: Paracentesis fluid: No evidence of malignancy. AM:ludivina 03/11/19
--- NOTE | 2019-03-08 13:36 | US_ITS ---
PROCEDURE: Ultrasound guided paracentesis. DATE OF EXAMINATION: March 08, 2019. INDICATION: Female, 83 years old. Ascites. PHYSICIAN: Kamaljit Logan M.D. TECHNIQUE: The risks, benefits, and alternatives to the procedure were explained to the patient. The specific risks of bleeding, infection, and damage to bowel were detailed and accepted. Witnessed informed consent was obtained. The abdomen was ultrasonographically surveyed. An appropriate pocket of fluid was identified at the right lower quadrant. The skin were cleaned and prepped in the usual sterile fashion. Using ultrasound guidance, the peritoneal cavity was accessed with a 5-[place] paracentesis needle/catheter system. The trocar was removed. A total of 2920 ml of sandro-colored fluid were removed from the peritoneal cavity. The catheter was removed and a sterile dressing was applied. The procedure was well tolerated. US/Paracentesis with US IMPRESSION: Ultrasound guided paracentesis. Electronically Signed: Kamaljit Logan, at 15:37 EST , Service support ,
[2019-03-08 13:42] LABS: International Normalized Ratio 1.3; Partial Thromboplast Time 29.6 Seconds (24.1-36.2); Prothrombin Time (Protime)PT. 16.4 SECONDS (11.7-14.9)
[2019-03-08 14:35] VITALS: BP 141/60; BP 151/58; BP 155/52; PULSE 69; PULSE 72; PULSE 77; RESP 16; RESP 18; O2SAT 70; O2SAT 95
[2019-03-08 15:32] LABS: Cytology, Body Fluid / CSF SEE PATHOLOGY REPORT
== END ==
PROVIDERS: PCP Family Medicine; Referring Provider Obstetrics & Gynecology; Visit Provider Obstetrics & Gynecology
DX: R18.8 Other ascites (principal); R97.8 Other abnormal tumor markers
CPT/HCPCS: 36415; 49083; 85610; 85730; 87070; 87075; 87205; 88108; 88305; 88313; 88341; 88342

== ENCOUNTER 2019-03-31 09:44 | Day surgery (SDC) | payer MEDICARE, OTHER, SELFPAY ==
[2019-03-16 10:55] VITALS: BMI 26.6
[2019-03-24 14:14] VITALS: BMI 26.6
[2019-03-31 10:17] LABS: Anion Gap 5 (5-15); BUN 14 mg/dL (7-18); BUN/Creat Ratio 19.5 RATIO (10-20); Chloride 109 mmol/L (98-107); Creatinine, Serum 0.72 mg/dL (0.55-1.02); EST Glomerular Filtration Rate 83 mL/min (>60); Est Glom Filt Rate - Afr Amer 100 mL/min (>60); Estimated Creatinine Clearance 33.29 ml/min; Glucose 95 mg/dL (74-106); Potassium 4.3 mmol/L (3.5-5.1); Sodium Level 139 mmol/L (136-145)
[2019-03-31 12:26] LABS: Blood Gas Specimen Type VEN; VBG BASE EXCESS 1 mmol/L (-1.0-3.5); VBG Bicarbonate 25 mmol/L (22-26); VBG Oxygen Content 26 mmol/L (23-33); VBG PO2 38 mmHg (25-40); VBG SO2 75 % (50-70); VBG pCO2 36.4 mmHg (41-51); VBG pH 7.44 (7.32-7.42)
[2019-03-31 12:26] LABS: Blood Gas Specimen Type VEN; VBG BASE EXCESS 1 mmol/L (-1.0-3.5); VBG Bicarbonate 25 mmol/L (22-26); VBG Oxygen Content 26 mmol/L (23-33); VBG PO2 40 mmHg (25-40); VBG SO2 77 % (50-70); VBG pCO2 36.4 mmHg (41-51); VBG pH 7.44 (7.32-7.42)
[2019-03-31 12:26] LABS: Blood Gas Specimen Type VEN; VBG BASE EXCESS 0 mmol/L (-1.0-3.5); VBG Bicarbonate 24 mmol/L (22-26); VBG Oxygen Content 25 mmol/L (23-33); VBG PO2 51 mmHg (25-40); VBG SO2 88 % (50-70); VBG pCO2 34.1 mmHg (41-51); VBG pH 7.45 (7.32-7.42)
[2019-03-31 12:26] LABS: Blood Gas Specimen Type VEN; VBG BASE EXCESS 0 mmol/L (-1.0-3.5); VBG Bicarbonate 24 mmol/L (22-26); VBG Oxygen Content 25 mmol/L (23-33); VBG PO2 41 mmHg (25-40); VBG SO2 79 % (50-70); VBG pCO2 35.5 mmHg (41-51); VBG pH 7.44 (7.32-7.42)
--- NOTE | 2019-03-31 17:56 | CL.D_ITS ---
Patient Name: ELLIOT MUNOZ Study Date: 03/31/2019 Performing: Lj Salter MD Ht: 61 inches 155 cm : 1935 Wt: 141.3 lbs 64 kg Age: 83 Gender: female BSA: 1.63 PROCEDURE(S) PERFORMED [id number] ONLY CLINICAL PROFILE AND INDICATIONS Indications: Other. Ascites. Suspected right heart failure, pulmonary HTN Heart Failure: None Stress/Imaging Stress/Image Study Performed: No CAD Presentations: Other: R heart cath CONCLUSIONS Right heart pressures - Normal Intracardiac shunting: None RECOMMENDATIONS DESCRIPTION OF PROCEDURE The patient arrived to the procedure lab. The risks and benefits of the procedure as well as a full d escription of our services here and current unavailability of surgical backup were fully explained to the patient and/or their significant other prior to the catheterization. The Timeout was completed, verifying the correct patient and procedure. The patient's procedural site was prepped and draped in the usual fashion. Local anesthetic was given subcutaneously to right brachial region with Lidocaine 2%. Using a modified Seldinger technique, Venous access was obtained via the right brachiocephalic v ein, with Micropuncture set A 7Fr thermal dilution catheter was inserted and right heart pressures we re recorded, it was then advanced to PA position for cardiac outputs. Thermal dilution cardiac output s were then recorded. O2 saturations were then obtained. The Thermal dilution catheter was then remov ed.The venous sheath was then pulled and manual compression applied until hemostasis achieved. The venous sheath was then pulled and manual compression applied until hemostasis achieved CORONARY ANGIOGRAPHY RIGHT HEART ASSESSMENT PW: 31/01 9 PA: 21 RV: 45/-6 8 RA: 7/2 2 COMPLICATIONS No Complications PROCEDURE MEDICATIONS SUMMARY OF HEMODYNAMIC DATA Time AIR REST ECG 10:19:12 RV 45/-6, 8 11:52:10 PW 31/01 (9) PV 11:53:06 PW 31/10 (10) 11:53:26 PW (17) 11:54:03 PA 41/13 (21) PA 11:54:37 RA 7/2 (2) SV 11:56:44 PW 16 (12) 11:58:43 Label % O2 Pres/Loc Time AIR REST PA 77 PA 12:05:08 RA 75 SV 12:09:44 RV 79 12:09:48 Signed By Lj Salter MD On 03/31/2019 5:55:17 PM Lj Salter MD
== END 2019-03-31 14:34 | disposition home or self-care (01) ==
LOC: CLSP 09:44
PROVIDERS: Nurse Practitioner Family; PCP Family Medicine; Referring Provider Specialist; Visit Provider Specialist
DX: R18.8 Other ascites (principal); I27.20 Pulmonary hypertension, unspecified; I10 Essential (primary) hypertension; F32.9 Major depressive disorder, single episode, unspecified; E78.5 Hyperlipidemia, unspecified; J84.10 Pulmonary fibrosis, unspecified; Z86.2 Personal history of diseases of the blood and blood-forming organs and certain disorders involving the immune mechanism; Z87.19 Personal history of other diseases of the digestive system; Z79.899 Other long term (current) drug therapy; Z87.891 Personal history of nicotine dependence
CPT/HCPCS: 36415; 80048; 82803; 93451; J7040; C1751; C1894

== ENCOUNTER → 2019-04-13 11:28 | Outpatient (CLI) | payer MEDICARE, OTHER, SELFPAY ==
[2019-04-13 10:37] VITALS: BMI 24.9
[2019-04-13 12:37] LABS: Erythrocyte Sedimentation Rate 58 mm/hr (0-30)
[2019-04-13 12:47] LABS: CRP 5.04 mg/L (0.0-3.0); Rheumatoid Factor < 10.0 IU/mL (<15)
[2019-04-13 12:50] LABS: BNP,B-Type NATRIURETIC PEPTIDE 73.4 pg/mL (0-100)
[2019-04-14 14:08] LABS: Anti-Scleroderma-70 AB <0.2 AI (0.0-0.9)
[2019-04-14 14:42] LABS: Anion Gap 4 (5-15); BUN 22 mg/dL (7-18); BUN/Creat Ratio 27.2 RATIO (10-20); Calcium,Total 8.6 mg/dL (8.5-10.1); Chloride 110 mmol/L (98-107); Creatinine, Serum 0.81 mg/dL (0.55-1.02); EST Glomerular Filtration Rate 72 mL/min (>60); Est Glom Filt Rate - Afr Amer 87 mL/min (>60); Glucose 75 mg/dL (74-106); Potassium 4.5 mmol/L (3.5-5.1); Sodium Level 140 mmol/L (136-145)
[2019-04-14 15:46] LABS: ANTINUCLEAR ANTIBODIES DIRECT Negative (Negative); Anti-dsDNA Ab 3 IU/mL (0-9)
[2019-04-15 16:08] LABS: Cytoplasmic Ab (C-ANCA) 1:40 titer (Neg:<1:20)
[2019-04-16 00:13] LABS: CCP IgG Antibodies 10 units (0-19); Perinuclear Ab (P-ANCA) <1:20 titer (Neg:<1:20)
== END ==
PROVIDERS: PCP Family Medicine; Referring Provider Internal Medicine Pulmonary Disease; Visit Provider Internal Medicine Pulmonary Disease
DX: R06.00 Dyspnea, unspecified (principal); I10 Essential (primary) hypertension; J84.10 Pulmonary fibrosis, unspecified
CPT/HCPCS: 36415; 80048; 83880; 85652; 86038; 86140; 86200; 86225; 86235; 86256; 86431

== ENCOUNTER → 2019-04-14 15:18 | Outpatient (CLI) | payer MEDICARE, OTHER, SELFPAY ==
[2019-04-13 10:37] VITALS: BMI 24.9
[2019-04-14 18:21] LABS: ALB/GLOB Ratio 0.6 RATIO (0.9-2.4); AST(SGOT) 28 U/L (15-37); Alanine Aminotransfer ALT/SGPT 26 U/L (13-56); Alkaline Phosphatase 122 U/L (45-117); Anion Gap 5 (5-15); BUN 18 mg/dL (7-18); BUN/Creat Ratio 23.9 RATIO (10-20); Calcium,Total 8.4 mg/dL (8.5-10.1); Chloride 105 mmol/L (98-107); Creatinine, Serum 0.75 mg/dL (0.55-1.02); EST Glomerular Filtration Rate 78 mL/min (>60); Est Glom Filt Rate - Afr Amer 95 mL/min (>60); Globulin 5.4 g/dL (2.2-4.2); Glucose 93 mg/dL (74-106); Potassium 3.8 mmol/L (3.5-5.1); Protein, Total 8.4 g/dL (6.4-8.2); Sodium Level 139 mmol/L (136-145)
[2019-04-16 06:16] LABS: Cancer Antigen 125 64.7 U/mL (0.0-38.1); Carbohydrate AG 19-9 391 U/mL (0-35); Carcinoembryonic Antigen 3.2 ng/mL (0.0-4.7)
== END ==
PROVIDERS: PCP Family Medicine; Referring Provider Family Medicine; Visit Provider Family Medicine
DX: R18.8 Other ascites (principal)
CPT/HCPCS: 36415; 80053; 82378; 86301; 86304

== ENCOUNTER → 2019-04-20 13:29 | Outpatient (CLI) | payer MEDICARE, OTHER, SELFPAY ==
[2019-03-24 14:14] VITALS: BMI 26.6
[2019-04-13 10:37] VITALS: BMI 24.9
--- NOTE | 2019-04-20 13:34 | CT_ITS ---
STUDY: CT CHEST WITHOUT CONTRAST REASON FOR EXAM: Female, 83 years old. Worsening shortness of breath RADIATION DOSAGE (If Supplied By Facility): CTDIvol = ( 6.42 ) mGy, DLP = ( 199.62 ) mGycm TECHNIQUE: Transaxial imaging was performed without the administration of intravenous contrast material. Multiplanar coronal and sagittal images were reformatted, along with high-resolution cuts. Individualized dose optimization techniques were used for this CT. COMPARISON: Previous plain films FINDINGS: Lung windows show underlying emphysema with nonspecific pleural thickening in both apices. There is a cavitary nodule in the left upper lobe medially measuring 1.9 x 1.4 cm likely sequela from previous inflammation. A second cavitary nodule is noted in the left mid lateral lung field measuring 1.8 x 1.3 cm also likely sequela from inflammation. Diffuse interstitial fibrotic changes noted in the periphery of both lung hendricks without organized infiltrate, or suspicious noncalcified mass or nodule. Soft tissue windows show a normal-appearing thyroid gland. No suspicious axillary or mediastinal adenopathy. There are calcified coronary vessels. Degenerative bony changes noted. Limited cuts to the upper abdomen show gallbladder wall thickening. CT/Chest without Contrast IMPRESSION: Underlying emphysema with cavitary nodules noted in the left upper medial lung field on axial image 25 and left mid lateral lung field on axial image 50. These are likely sequela from previous acute inflammation. Diffuse interstitial fibrotic changes in both lung hendricks particularly on the periphery of both lung hendricks. No evidence of bronchiectasis, organized infiltrate or effusion Calcified coronary vessels Degenerative bony changes Nonspecific gallbladder wall thickening Electronically Signed: Augusto Rodney MD at 17:29 EST , Service support ,
== END ==
PROVIDERS: PCP Family Medicine; Referring Provider Internal Medicine Pulmonary Disease; Visit Provider Internal Medicine Pulmonary Disease
DX: J84.10 Pulmonary fibrosis, unspecified (principal); R06.00 Dyspnea, unspecified
CPT/HCPCS: 71250

== ENCOUNTER → 2019-05-13 15:44 | Outpatient (CLI) | payer MEDICARE, OTHER, SELFPAY ==
[2019-04-13 10:37] VITALS: BMI 24.9
[2019-05-13 17:34] LABS: Potassium 3.7 mmol/L (3.5-5.1)
[2019-05-15 16:27] LABS: Cancer Antigen 125 59.5 U/mL (0.0-38.1); Carbohydrate AG 19-9 530 U/mL (0-35)
== END ==
PROVIDERS: PCP Family Medicine; Referring Provider Family Medicine; Visit Provider Family Medicine
DX: R18.8 Other ascites (principal); R97.8 Other abnormal tumor markers
CPT/HCPCS: 36415; 84132; 86301; 86304

== ENCOUNTER → 2019-06-21 | Outpatient (CLI) | payer MEDICARE, OTHER, SELFPAY ==
[2019-04-13 10:37] VITALS: BMI 24.9
--- NOTE | 2019-06-21 10:59 | RAD_ITS ---
STUDY: X-RAY CHEST REASON FOR EXAM: Female, 83 years old. Shortness of breath, pulmonary fibrosis TECHNIQUE: PA and lateral views of the chest. COMPARISON: Comparison is made with prior study dated February 23, 2019. FINDINGS: Since prior study, there has been progressive increased interstitial markings with areas of confluence in both lungs worse at the lung bases. This is in keeping with progressive interstitial fibrosis and honeycombing. There is no demonstrated pleural abnormality. There is mild cardiac enlargement. Normal mediastinum and epi. Normal visualized pulmonary arteries. There is atherosclerotic calcification of the aortic arch with tortuosity. S-shaped scoliosis. Normal visualized ribs, clavicles, and shoulders. There is no demonstrated abnormality of the visualized soft tissue structures of the upper abdomen. RAD/Chest PA and Lateral IMPRESSION: Progressive scarring in both lungs. Electronically Signed: Kamaljit Logan, at 13:38 EDT , Service support ,
[2019-06-21 12:01] LABS: Erythrocyte Sedimentation Rate 54 mm/hr (0-30)
[2019-06-21 12:32] LABS: CRP < 2.90 mg/L (0.0-3.0)
[2019-06-22 16:16] LABS: Cancer Antigen 125 52.6 U/mL (0.0-38.1); Carbohydrate Ag 19-9 2261 633 U/mL (0-35); Carcinoembryonic Antigen 4.2 ng/mL (0.0-4.7)
== END | disposition home or self-care (01) ==
PROVIDERS: PCP Family Medicine; Referring Provider Internal Medicine Pulmonary Disease; Visit Provider Internal Medicine Pulmonary Disease
DX: J84.10 Pulmonary fibrosis, unspecified (principal); R97.0 Elevated carcinoembryonic antigen [CEA]; Z12.9 Encounter for screening for malignant neoplasm, site unspecified; I27.20 Pulmonary hypertension, unspecified; I10 Essential (primary) hypertension; Z87.891 Personal history of nicotine dependence; R06.00 Dyspnea, unspecified
CPT/HCPCS: 36415; 71046; 82378; 85652; 86140; 86301; 86304

== ENCOUNTER → 2019-07-13 06:37 | Outpatient (CLI) | payer MEDICARE, OTHER, SELFPAY ==
[2019-04-13 10:37] VITALS: BMI 24.9
--- NOTE | 2019-07-13 06:43 | RAD_ITS ---
STUDY: X-RAY CHEST REASON FOR EXAM: Female, 83 years old. PULMONARY FIBROSIS -- C/O CHRONIC SOB TECHNIQUE: PA and lateral views of the chest. COMPARISON: PA and lateral chest x-ray June 21, 2019. FINDINGS: The chronic, coarse and interstitial markings, most prominent in the lung bases, are unchanged. No acute consolidation. There is no demonstrated pleural abnormality. Normal size heart. Normal mediastinum and eip. There is stable atherosclerotic calcification of the aortic arch. There is a stable 20 degree dextroscoliosis of the spine centered at T11-12, and 13 degree levoscoliosis centered near T4. There is stable mild left lateral wedging of the T6 and T7 vertebrae.. Normal visualized ribs, clavicles, and shoulders. There is no demonstrated abnormality of the visualized soft tissue structures of the upper abdomen. RAD/Chest PA and Lateral IMPRESSION: Stable x-ray examination of the chest with changes of chronic pulmonary fibrosis, most prominent in the bases. Electronically Signed: Augusto Malone MD at 17:12 EDT , Service support ,
== END ==
PROVIDERS: PCP Family Medicine; Referring Provider Internal Medicine Pulmonary Disease; Visit Provider Internal Medicine Pulmonary Disease
DX: J84.10 Pulmonary fibrosis, unspecified (principal)
CPT/HCPCS: 71046

== ENCOUNTER → 2019-07-29 10:45 | Outpatient (CLI) | payer MEDICARE, OTHER, SELFPAY ==
[2019-04-13 10:37] VITALS: BMI 24.9
[2019-07-29 12:28] LABS: Anion Gap 7 (5-15); BUN 23 mg/dL (7-18); BUN/Creat Ratio 23.2 RATIO (10-20); Calcium,Total 8.8 mg/dL (8.5-10.1); Chloride 102 mmol/L (98-107); Creatinine, Serum 0.99 mg/dL (0.55-1.02); EST Glomerular Filtration Rate 57 mL/min (>60); Est Glom Filt Rate - Afr Amer 69 mL/min (>60); Glucose 149 mg/dL (74-106); Potassium 4.3 mmol/L (3.5-5.1); Sodium Level 136 mmol/L (136-145)
== END ==
PROVIDERS: PCP Family Medicine; Visit Provider Family Medicine
DX: E87.6 Hypokalemia (principal)
CPT/HCPCS: 36415; 80048

== ENCOUNTER → 2019-08-03 11:18 | Outpatient (CLI) | payer MEDICARE, OTHER, SELFPAY ==
[2019-04-13 10:37] VITALS: BMI 24.9
--- NOTE | 2019-08-03 11:22 | US_ITS ---
STUDY: ULTRASOUND OF THE FEMALE PELVIS - COMPLETE REASON FOR EXAM: Female, 83 years old. THICKENED ENDOMETRIUM LMP: The patient is postmenopausal. TECHNIQUE: Transabdominal and Transvaginal TECHNICAL QUALITY: Adequate. COMPARISON: Comparison is made with prior examination dated March 02, 2019. FINDINGS: The uterus is anteverted and is in a midline position. The uterus measures 4.2 cm x 2.2 cm x 2.5 cm. Normal uterine cervix. The endometrium measures 4.5 mm in thickness, and is fluid distended. There is no demonstrated endometrial mass. There is no demonstrated myometrial mass. I.U.D. - The patient does not have an I.U.D. The right ovary is non-visualized. The left ovary is visualized. The left ovary measures 1.7 cm x 1.8 cm x 1.0 cm. There is no left ovarian cyst or ovarian mass. There is no visualized left adnexal mass or complex lesion. There is normal arterial and normal venous vascularity. There is no fluid in the cul-de-sac. The pre void volume of the bladder was 595 ml. Polycystic ovary disease: No. US/Transvaginal Non- IMPRESSION: Persistent thickening of the endometrium with fluid distention. Electronically Signed: Kamaljit Logan, at 13:49 EDT , Service support ,
--- NOTE | 2019-08-03 11:23 | US_ITS ---
STUDY: ULTRASOUND OF THE FEMALE PELVIS - COMPLETE REASON FOR EXAM: Female, 83 years old. THICKENED ENDOMETRIUM LMP: The patient is postmenopausal. TECHNIQUE: Transabdominal and Transvaginal TECHNICAL QUALITY: Adequate. COMPARISON: Comparison is made with prior examination dated March 02, 2019. FINDINGS: The uterus is anteverted and is in a midline position. The uterus measures 4.2 cm x 2.2 cm x 2.5 cm. Normal uterine cervix. The endometrium measures 4.5 mm in thickness, and is fluid distended. There is no demonstrated endometrial mass. There is no demonstrated myometrial mass. I.U.D. - The patient does not have an I.U.D. The right ovary is non-visualized. The left ovary is visualized. The left ovary measures 1.7 cm x 1.8 cm x 1.0 cm. There is no left ovarian cyst or ovarian mass. There is no visualized left adnexal mass or complex lesion. There is normal arterial and normal venous vascularity. There is no fluid in the cul-de-sac. The pre void volume of the bladder was 595 ml. Polycystic ovary disease: No. US/Pelvic (Non ) IMPRESSION: Persistent thickening of the endometrium with fluid distention. Electronically Signed: Kamaljit Logan, at 13:49 EDT , Service support ,
== END ==
PROVIDERS: PCP Family Medicine; Referring Provider Family Medicine; Visit Provider Family Medicine
DX: R93.89 Abnormal findings on diagnostic imaging of other specified body structures (principal)
CPT/HCPCS: 76830; 76856

== ENCOUNTER → 2019-09-02 16:39 | Outpatient (CLI) | payer MEDICARE, OTHER, SELFPAY ==
[2019-04-13 10:37] VITALS: BMI 24.9
--- NOTE | 2019-09-02 16:43 | RAD_ITS ---
STUDY: X-RAY CHEST REASON FOR EXAM: Female, 83 years old patient with respiratory crackles at right lung base. TECHNIQUE: PA and lateral views of the chest. COMPARISON: July 13, 2019. FINDINGS: The lungs are expanded. There is interstitial thickening present in both lungs. There is patchy ground glass attenuation within the periphery of both lungs similar to previous study. This may be secondary to pulmonary fibrosis. There is no demonstrated pleural abnormality. There is mild cardiac enlargement. Normal mediastinum and epi. Normal visualized pulmonary arteries. There is atherosclerotic calcification of the aortic arch with tortuosity. There is demineralization of the osseous structures. Normal visualized ribs, clavicles, and shoulders. There is a large amount of bowel gas. RAD/Chest PA and Lateral IMPRESSION: Unchanged appearance of the chest with what appears to be primarily pulmonary fibrosis and/or pleural fibrosis. Superimposed airspace disease would be difficult to exclude. Electronically Signed: Suzi Soria MD at 0:23 EDT , Service support ,
[2019-09-02 17:41] LABS: Absolute Lymphocyte Count 1.28 X10^3/uL (0.83-4.51); Absolute Neutrophil Count 7.9 X10^3/uL (2.0-7.7); Basophil# 0.07 X10^3/uL; Basophil% 0.7 % (0-1); Eosinophil# 0.09 X10^3/uL; Eosinophils% 0.9 % (0-5); Hematocrit 44.3 % (37-47); Lymphocyte # 1.28 X10^3/ul (4.0); Lymphocyte % 12.4 % (19-41); Mean Corp Hgb Conc 31.6 g/dL (32-36); Mean Corpuscular Hgb 29.9 pg (27.0-32.0); Mean Corpuscular Volume 94.7 fL (81-99); Mean Platelet Vol. 10.8 fl (6.2-12.0); Monocyte# 0.87 X10^3/uL; Monocyte% 8.4 % (0-10); NRBC Flagged by Analyzer 0 % (0-5); Neutrophil # 7.91 X10^3/uL (2.7-7.7); Neutrophil % 76.2 % (47-70); POSITIVE MORPHOLOGY YES; Platelet Count 159 K/mm3 (150-450); RBC Distribution Width CV 21.4 % (11.6-14.6); RBC Distribution Width SD 71.6 fl (35.1-43.9); Red Blood Count 4.68 M/mm3 (4.2-5.4); White Blood Count 10.4 K/mm3 (4.4-11.0)
[2019-09-02 17:42] LABS: Differential Indicated SCAN CRITERIA MET
[2019-09-02 18:10] LABS: Anisocytosis 1+; Differential Comment SCANNED
[2019-09-02 18:36] LABS: ALB/GLOB Ratio 0.7 RATIO (0.9-2.4); AST(SGOT) 40 U/L (15-37); Alanine Aminotransfer ALT/SGPT 47 U/L (13-56); Albumin, Serum 3.2 g/dL (3.2-5.0); Alkaline Phosphatase 104 U/L (45-117); Anion Gap 5 (5-15); BUN 19 mg/dL (7-18); BUN/Creat Ratio 22.4 RATIO (10-20); Calcium,Total 8.3 mg/dL (8.5-10.1); Chloride 105 mmol/L (98-107); Creatinine, Serum 0.85 mg/dL (0.55-1.02); EST Glomerular Filtration Rate 68 mL/min (>60); Est Glom Filt Rate - Afr Amer 83 mL/min (>60); Globulin 4.5 g/dL (2.2-4.2); Glucose 102 mg/dL (74-106); Protein, Total 7.7 g/dL (6.4-8.2); Sodium Level 139 mmol/L (136-145)
== END ==
PROVIDERS: PCP Family Medicine; Referring Provider Family Medicine; Visit Provider Family Medicine
DX: I10 Essential (primary) hypertension (principal); R09.89 Other specified symptoms and signs involving the circulatory and respiratory systems
CPT/HCPCS: 36415; 71046; 80053; 85025

== ENCOUNTER → 2019-09-05 13:48 | Outpatient (CLI) | payer MEDICARE, OTHER, SELFPAY ==
[2019-04-13 10:37] VITALS: BMI 24.9
--- NOTE | 2019-09-05 13:50 | CT_ITS ---
HISTORY: PULMONARY FIBROSIS F/U TECHNIQUE: Helically acquired images of the chest were obtained without IV contrast. Number of images including paperwork: [id number]. A radiation dose optimization technique was used for this scan. COMPARISON: CT 04/20/2019 FINDINGS: VASCULATURE: Vascular tortuosity. HEART/PERICARDIUM: Heart size appears stable. Coronary calcification. MEDIASTINUM: Small hiatal hernia. ADENOPATHY: Mild mediastinal adenopathy appears similar. THYROID: Unremarkable visualized portions. LUNG PARENCHYMA: Peripheral and basilar predominant interstitial abnormality with interstitial septal thickening, reticular yearly, mild ground glass opacities and traction bronchiectasis. Mild increase in peripheral opacities in the upper lobes. Small nodular areas of consolidation in the right upper lobe, series 3 images 51 3 256 appear new. PLEURAL SPACES: Unremarkable. UPPER ABDOMEN: Prominent lateral segment left lobe of the liver and recanalized umbilical vein again seen. Small densities adjacent to the GE junction could be related to small nodes or prominent vessels. OSSEOUS AND SOFT TISSUE STRUCTURES: No acute skeletal findings. DEVICES: None. CT/Chest without Contrast IMPRESSION: 1. Mild increase in interstitial opacities in the upper lobes, possibly acute component of interstitial lung disease. 2. Small focal areas of opacity in the right upper lobe are nonspecific. Correlate for evidence of infection. 3. Additional findings above. Individualized dose optimization techniques were used for this CT. at 0043 Reported and signed by: Bisi Reid MD Electronically Signed: Bisi Reid MD at 0:43 EDT Tel , Service support ,
== END ==
PROVIDERS: PCP Family Medicine; Referring Provider Internal Medicine Pulmonary Disease; Visit Provider Internal Medicine Pulmonary Disease
DX: J84.10 Pulmonary fibrosis, unspecified (principal)
CPT/HCPCS: 71250

== ENCOUNTER → 2019-09-09 06:43 | Outpatient (CLI) | payer MEDICARE, OTHER, SELFPAY ==
[2019-04-13 10:37] VITALS: BMI 24.9
--- NOTE | 2019-09-09 12:40 | STRESSREP_ITS ---
Stress Test Report Date: 09/09/2019 Procedure: Pharmacologic stress nuclear imaging study Indications: Abnormal EKG, preoperative evaluation Consent: Per the patient Procedure: The patient underwent pharmacologic (Regadenoson) evaluation with a peak heart rate of 100 beats per minute (71 %predicted maximal heart rate) and a peak blood pressure of 140/86 mmHg. The baseline ECG demonstrated normal sinus rhythm, poor R wave progression in the anterior leads. EKG during lexiscan infusion revealed no significant ischemic changes. EKG post infusion revealed no significant ischemic changes [There were no cardiac dysrhythmias pretest, during pharmacologic infusion, or recovery]. [There was no complaint of chest discomfort during pharmacologic infusion or recovery]. The examination was discontinued secondary to completion of protocol. Impression: 1. Lexiscan stress test test is negative for Lexiscan infusion induced EKG changes of ischemia. 2. Lexiscan stress test test is negative for Lexiscan infusion induced chest pain. 3. Results of the nuclear portion of the test is as below Myocardial perfusion imaging study: Technique: The patient was injected with 11.2 millicuries of technetium 99m Cardiolite and subsequently rest SPECT Cardiolite nuclear imaging was obtained in the horizontal long, vertical long, and short axis views. The patient underwent pharmacologic (Regadenoson) evaluation. Please see above for details. The patient was injected with 33.5 millicuries of technetium 99m Cardiolite and subsequently stress SPECT Cardiolite nuclear imaging was obtained in the horizontal long, vertical long, and short axis views. A gated Cardiolite study at peak stress was obtained. Interpretation: Rest and stress SPECT Cardiolite nuclear imaging status post realignment, normalization, and attenuation correction demonstrate overall normal myocardial radioisotope uptake. Gated images reveal no significant regional wall motion abnormalities. The reported LVEF is greater than 70 %. Impression: 1. There is no evidence of significant ischemia or infarction. 2. Estimated ejection fraction is greater than 70%. This note was generated with [employer] software. It may contain incorrect words, spelling, and punctuation that were not noted in checking the note before signing.
== END ==
PROVIDERS: PCP Family Medicine; Referring Provider Family Medicine; Visit Provider Family Medicine
DX: R94.31 Abnormal electrocardiogram [ECG] [EKG] (principal)
CPT/HCPCS: 78452; 93017; A9500; A4216; J2785

== ENCOUNTER 2019-09-26 11:40 | Outpatient (RCR) | payer MEDICARE, OTHER, SELFPAY ==
[2019-04-13 10:37] VITALS: BMI 24.9
[2019-09-26 12:35] LABS: Hematocrit 44.1 % (37-47); Hemoglobin 14.5 g/dL (12.0-15.0); Mean Corp Hgb Conc 32.9 g/dL (32-36); Mean Corpuscular Hgb 30.4 pg (27.0-32.0); Mean Corpuscular Volume 92.5 fL (81-99); Mean Platelet Vol. 11.5 fl (6.2-12.0); POSITIVE MORPHOLOGY YES; Platelet Count 163 K/mm3 (150-450); RBC Distribution Width CV 20.1 % (11.6-14.6); RBC Distribution Width SD 67.2 fl (35.1-43.9); Red Blood Count 4.77 M/mm3 (4.2-5.4); White Blood Count 13.5 K/mm3 (4.4-11.0)
[2019-09-26 12:37] LABS: Scan Indicated on CBC? Y/N YES- FLAGS NOTED
[2019-09-26 12:52] LABS: AST(SGOT) 31 U/L (15-37); Alanine Aminotransfer ALT/SGPT 38 U/L (13-56); Albumin, Serum 3.2 g/dL (3.2-5.0); Alkaline Phosphatase 99 U/L (45-117); Anion Gap 10 (5-15); BUN 19 mg/dL (7-18); Bilirubin, Direct 0.24 mg/dL (0.00-0.30); CPK Total, Creatine Kinase 56 U/L (26-192); Chloride 103 mmol/L (98-107); Globulin 4.7 g/dL (2.2-4.2); Potassium 3.8 mmol/L (3.5-5.1); Protein, Total 7.9 g/dL (6.4-8.2); Sodium Level 139 mmol/L (136-145)
[2019-09-26 13:08] LABS: Differential Comment 1+ANISO
== END 2019-10-17 18:00 | disposition home or self-care (01) ==
LOC: LAB 11:40
PROVIDERS: PCP Family Medicine; Referring Provider Internal Medicine Pulmonary Disease; Visit Provider Internal Medicine Pulmonary Disease
DX: I27.20 Pulmonary hypertension, unspecified (principal); J84.10 Pulmonary fibrosis, unspecified
CPT/HCPCS: 36415; 80051; 80076; 82550; 84520; 85027

== ENCOUNTER 2019-10-06 05:52 | Day surgery (SDC) | payer MEDICARE, OTHER, SELFPAY ==
[2019-04-13 10:37] VITALS: BMI 24.9
[2019-09-28 17:15] LABS: Hematocrit 42.3 % (37-47); Hemoglobin 13.8 g/dL (12.0-15.0); Mean Corp Hgb Conc 32.6 g/dL (32-36); Mean Corpuscular Hgb 30.1 pg (27.0-32.0); Mean Corpuscular Volume 92.4 fL (81-99); Mean Platelet Vol. 10.7 fl (6.2-12.0); POSITIVE MORPHOLOGY YES; Platelet Count 131 K/mm3 (150-450); RBC Distribution Width CV 19.9 % (11.6-14.6); RBC Distribution Width SD 66.7 fl (35.1-43.9); Red Blood Count 4.58 M/mm3 (4.2-5.4); White Blood Count 10.1 K/mm3 (4.4-11.0)
[2019-09-28 17:29] LABS: Anion Gap 4 (5-15); BUN 25 mg/dL (7-18); BUN/Creat Ratio 26.8 RATIO (10-20); Calcium,Total 8.8 mg/dL (8.5-10.1); Chloride 104 mmol/L (98-107); Creatinine, Serum 0.93 mg/dL (0.55-1.02); EST Glomerular Filtration Rate 61 mL/min (>60); Est Glom Filt Rate - Afr Amer 74 mL/min (>60); Glucose 100 mg/dL (74-106); Potassium 3.9 mmol/L (3.5-5.1); Sodium Level 139 mmol/L (136-145)
[2019-09-28 17:34] LABS: International Normalized Ratio 1.1; Prothrombin Time (Protime)PT. 13.5 SECONDS (11.7-14.9)
[2019-09-28 17:35] LABS: Partial Thromboplast Time 26.3 Seconds (24.1-36.2)
[2019-09-28 17:37] LABS: Scan Indicated on CBC? Y/N YES- FLAGS NOTED
[2019-09-28 17:57] LABS: Differential Comment SCANNED
[2019-10-06] VITALS (8 sets, daily range): BP systolic 105–131; BP diastolic 50–63; PULSE 69–87; RESP 14–18; TEMP 36.6–37.7; O2SAT 92–100; BMI 24.5
[2019-10-06] MEDS: Heparin Injection 5,000 UNITS/ML Syringe 5000 UNITS SC (05:30)
[2019-10-06] MEDS: Lactated Ringers 1,000 ML 125 ML IV (06:39)
--- NOTE | 2019-10-06 06:52 | PCM.HPOB.BLA ---
- Problem List (1) Elevated tumor markers Status: Acute (2) Ascites Status: Resolved Qualifiers: History and Physical Date of Admission: 10/06/19 Date: 09/28/2019 Name: ELLIOT MUNOZ Age: 83 Date of : 1935 HISTORY OF PRESENT ILLNESS: On 09/28/2019, Elliot Munoz, a 83 year old female 2 0 0 0 2, presented for: -- Pre-Op -- Elliot is here for pre-op exam. Diagnostic Laparoscopy planned. PAT packet provided and consents are signed. LMT as above. Elliot has a hx ascites and elevated tumor markers and is scheduled for diagnostic laparoscopy to r/o malignancy. 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 PCP is Dr. Patrick. shm -- Abdominal distention which began months. Elliot claims it started gradually and has been present months. It occurs all the time. It is located in the mostly uppper abdomen. Severity is moderate. An associated sign and symptom is gets full fast, denies any significant pain. ALLERGIES: Latex, Skin irritation MEDICATIONS HISTORY: Patient is also takin. amlodipine 5 mg tablet, daily 2. pravastatin 40 mg tablet, daily 3. furosemide 40 mg tablet, 1 po daily 4. prednisone 10 mg tablet, 1 and 1/2 daily 5. spironolactone 25 mg tablet, 1 daily REVIEW OF SYSTEMS: GENERAL - Abdominal swelling SKIN - Denies skin changes EYES - Denies visual changes EARS - Denies difficulty hearing NOSE - Denies nasal congestion or bleeding MOUTH - Denies sore throat or difficulty swallowing NECK - Denies pain or swelling RESPIRATORY - Denies shortness of breath or wheezing CARDIOVASCULAR - Denies palpitations or chest pain GASTROINTESTINAL - Denies nausea, vomiting, diarrhea, constipation, abdominal pain, melena, or bright red blood GENITOURINARY - Denies dysuria, frequency of urination, incontinence of urine MUSCULOSKELETAL - Denies joint or muscle pain NEUROLOGICAL - Denies localized numbness or weakness PSYCHIATRIC - Denies depression or anxiety ENDOCRINE - Denies heat or cold intolerance, weight loss or gain HEMATO-IMMUNOLOGIC - Denies excesive bleeding with cuts PAST HISTORY: Breast/Ovarian/Colon Cancers - Denies Infections - Chicken pox, Mumps and Measles Illnesses - HTN, Hyperlipidemia Accidents - no injuries of consequence History of Abnormal PAPS - no Hospitalizations - see surgery SURGICAL HISTORY: 1. Bilateral cataracts, 2018 MENSTRUAL HISTORY: LMP Known?- Postmenopausal, Age Onset Menarche - 13 PAST PREGNANCIES: Total Pregnancies - 2; Full Term Pregnancies - 2; Premature - 0; Abortions, Induced - 0; Abortions, Spontaneous - 0; Ectopics - 0; Multiple Births - 0; Living Children - 2 FAMILY HISTORY (OLD): FAMILY HISTORY: Father - Heart Attack; Mother - Stroke; Mother - Blood disorder; SOCIAL HISTORY: Alcohol Use - denies drinking Smoking - used to smoke but quit Diet - no special diet Lifestyle - low stress lifestyle Exercise - minimal Employer - Retired Illicit Drug Use - denies use of street drugs and 1974 Sexual Activity - Spouse-Sig Other Name - Kam Spouse-Sig Other Occupation - Retired Control - postmenopausal PHYSICAL EXAMINATION BP- 156/76 Sitting, Right arm, regular cuff Weight- 141.00 lbs Height- 64 inch CONSTITUTIONAL - NAD, well nourished, and well developed SKIN - No rash, lesions, or ulcers HEENT - Normocephalic, PERRLA, EOMI LUNGS - Air movement bilaterally, + rhonchi at left apices and bilateral lower lobes CARDIAC - Regular rate with irregular rhythm, no m/r/g appreciated ABDOMEN - Without hepatosplenomegaly, distention, masses, rebound, or guarding; normal bowel sounds; no hernias EXTREMITIES - No edema or calf tenderness NEUROLOGICAL - normal gait, normal balance, normal motor PSYCHIATRIC - A and O to time, place, person, mood and affect DETAILED PELVIC EXAM External Genital Vagina - non-tender without lesions Urethra/Urethral Meatus - non-tender Bladder - non-tender Vagina - vaginal johns are pink and moist without loss of rugae Cervix - without cervical motion tenderness and has normal size and features without evident lesions Uterus - 5-6 cm in size, mobile and nontender Adnexa - clear without massess or tenderness Laboratory Tests 09/28/19 09/28/19 09/28/19 Range/Units 16:30 15:43 15:43 WBC (4.4-11.0) K/mm3 RBC (4.2-5.4) M/mm3 Hgb (12.0-15.0) g/dL Hct (37-47) % MCV (81-99) fL MCH (27.0-32.0) pg MCHC (32-36) g/dL RDW Std Deviation (35.1-43.9) fl RDW Coeff of Kerri (11.6-14.6) % Plt Count (150-450) K/mm3 MPV (6.2-12.0) fl Differential Comment PT 13.5 (11.7-14.9) SECONDS INR 1.1 APTT 26.3 (24.1-36.2) Seconds Sodium 139 (136-145) mmol/L Potassium 3.9 (3.5-5.1) mmol/L Chloride 104 (98-107) mmol/L Carbon Dioxide 31.0 (21.0-32.0) mmol/L Anion Gap 4 L (5-15) BUN 25 H (7-18) mg/dL Creatinine 0.93 (0.55-1.02) mg/dL Est GFR (MDRD) Af Amer 74 (>60) mL/min Est GFR (MDRD) Non-Af 61 (>60) mL/min BUN/Creatinine Ratio 26.8 H (10-20) RATIO Glucose 100 (74-106) mg/dL Calcium 8.8 (8.5-10.1) mg/dL COVID-19 ([facility]) Not Detected (Not Detected) Blood Type Antibody Screen 09/28/19 09/28/19 Range/Units 15:43 15:30 WBC 10.1 (4.4-11.0) K/mm3 RBC 4.58 (4.2-5.4) M/mm3 Hgb 13.8 (12.0-15.0) g/dL Hct 42.3 (37-47) % MCV 92.4 (81-99) fL MCH 30.1 (27.0-32.0) pg MCHC 32.6 (32-36) g/dL RDW Std Deviation 66.7 H (35.1-43.9) fl RDW Coeff of Kerri 19.9 H (11.6-14.6) % Plt Count 131 L (150-450) K/mm3 MPV 10.7 (6.2-12.0) fl Differential Comment SCANNED PT (11.7-14.9) SECONDS INR APTT (24.1-36.2) Seconds Sodium (136-145) mmol/L Potassium (3.5-5.1) mmol/L Chloride (98-107) mmol/L Carbon Dioxide (21.0-32.0) mmol/L Anion Gap (5-15) BUN (7-18) mg/dL Creatinine (0.55-1.02) mg/dL Est GFR (MDRD) Af Amer (>60) mL/min Est GFR (MDRD) Non-Af (>60) mL/min BUN/Creatinine Ratio (10-20) RATIO Glucose (74-106) mg/dL Calcium (8.5-10.1) mg/dL COVID-19 ([facility]) (Not Detected) Blood Type O POSITIVE Antibody Screen NEGATIVE ASSESSMENT: 1. Other Ascites PLAN BY DIAGNOSIS: 1. Other Ascites Elevated tumor markers, continue to rise despite treatment for pulmonary disease Plan for diagnostic laparoscopy, biopsy as indicated Procedural r/b/i/a reviewed Consents signed, pt and daughter given opportunity to ask questions and questions answered to her satisfaction.
--- NOTE | 2019-10-06 07:30 | FLU_PTH ---
PATIENT: ELLIOT MUNOZ LOC: [facility] [place][id number] AGE/SX: 83/F ROOM: RE10/06/[address]: Dr. Brunilda Coats MD : 1935 BED: DIS: 10/06/2019 SPEC #: [id number] RECD: 10/06/19 08:43 STATUS: WENDIE AQUINO #: [id number] PAVEL: 10/06/19 07:[address]: Brunilda Prince DEPT: CYTOLOGY RECD BY: Jagruti Light ENTERED: 10/06/19 09:18 SP TYPE: Fluid OTHR DR: Dr. Jose Eduardo Patrick MD Tissues: Pelvis, NOS Procedures: Special Stain Group II Surgery Specimen Level IV Cytospin Fluid HEADER OPERATION: Diagnostic laparoscopy with pelvic washings PRE-OP DIAGNOSIS: Elevated tumor markers, acute ascites TISSUE SUBMITTED: Pelvic washings for cytology DIAGNOSIS CYTOLOGY Pelvic washings for cytology (cytospin and cell block): Negative for malignant cells. See comment. MARIO:ludivina 10/07/19 COMMENT Clinical correlation and appropriate follow up are necessary. Please make reference to previous specimen ([id number]) paracentesis fluid for cytology with diagnosis of no evidence of malignancy. CYTOLOGY STUDY Slides are reviewed. CYTOLOGY GROSS Received is 25 ml of colorless, hazy fluid labeled with the patient's name and and designated per the requisition as pelvic washings. Submitted for cytology preparation including cell block. / ludivina 10/06/19 TC:5 CPT: 46804, 76027
[2019-10-06] MEDS: Lubricating Jelly 60 GM Tube 30 GM TOPICAL (07:52)
[2019-10-06] MEDS: Bupivacaine Mpf 0.5% 30 ML VIAL (07:52)
--- NOTE | 2019-10-06 08:41 | PCM.OPRPT ---
Problem List (1) Elevated tumor markers Status: Acute Report of Operation Date of Procedure: 10/06/19 Pre-Operative Diagnosis: Elevated tumor markers, ascites Post-Operative Diagnosis: Elevated tumor markers, ascites Surgery/Procedure Performed:: Diagnostic laparoscopy Description of Surgical Findings:: Diffuse vascular injection of bowel. Normal appearing liver, gallbladder, stomach, spleen, uterus, bilateral tubes and ovaries. belt loop machine operator: Luis Carter Type of Anesthesia:: General, Local Anesthesiologist: Bob Hunter Specimen's removed: 1. pelvic washings Estimated Blood Loss (mL): 5 Fluids Replaced: 700 ml Description of Procedure: Indication: 83yo female with hx abdominal ascites and elevated tumor markers of unknown etiology. Prior work up demonstrated interstitial pulmonary disease and biliary inflammation with no clear evidence of malignancy. Despite treatment of pulmonary disease and improvement of ascites her tumor markers continued to rise. Following discussion, opted to proceed with diagnostic laparoscopy. Procedural r/b/i/a reviewed. Consents signed prior to procedure and informed consent was obtained. Procedure: Patient was brought to the OR and sign in performed. The patient was placed in dorsal supine position and induced under general anesthesia and intubated. Her arms were tucked at the sides and patient was repositioned into dorsal lithotomy. A pelvic examination under anesthesia was performed. The abdomen and perineum were prepped and draped in sterile fashion. Straight catheterization of the bladder performed. The patient was placed into high lithotomy and a speculum placed vaginally. The cervix grasped at the anterior cervical lip with a single tooth tenaculum and a Marva cannula was placed for uterine manipulation and secured to the tenaculum. The patient was placed into low lithotomy and attention turned to the abdomen. An infraumbilical incision was made with the scalpel and Veress needle introduced into the abdomen. Hang drop test was successful and there was no aspirate with low abdominal entry pressure. The abdomen was insufflated to 15mmHg. The Veress needle removed and a 5mm trocar placed under laparoscopic guidance confirming entry into the abdominal cavity. A second incision was made suprapubically and a 5mm port placed here. The patient was placed into Trendelenberg and inspection of the pelvis performed. Due to the present of abundant bowel in the pelvis a laparoscopic guided TAP block was placed in the right lower quadrant and incision was made under transillumination. A 5mm port was also placed at this site. The pelvis was irrigated and pelvic washings were obtained. The abdomen and pelvis were inspected. The pelvis was grossly normal. The bowel had significant microvascular dilation but otherwise was normal appearing. A superficial area of the rectosigmoid epiploica had a bleed related to bowel manipulation that was observed over the course of the procedure and improved with time. I called on Dr. Del Toro, general surgery for a second look observation of the abdominal organs and following inspection he agreed the spleen, liver and gallbladder appeared normal. - Complications None - Admit VTE Documentation VTE Present on Admission: No VTE Mechan Device Prophylaxis: SCD's VTE Pharm Prophylaxis ordered?: Yes
--- NOTE | 2019-10-06 09:00 | DCINST_ITS ---
- Discharge Diagnoses Current Active Problems: Current Active and Chronic Problems (Last Reviewed 04/13/19 @ 11:[address] Sita Slater MD) Elevated tumor markers (Acute) Reason(s) for Visit for Discharge Instructions: Diagnostic laparoscopy You will use the following diet at home:: No restrictions Your food should be the consistency of: Regular Discharge Activity: Return to Normal Activity, May not drive while taking narcotic pain medications., - - No driving for 3-7 days May resume sexual activity in: 4 weeks Lifting Restrictions: 10 lb Call your doctor if your incision/area has: Continuous Slow Oozing, Sudden Increased Bleeding, Increased Pain/ Swelling, Increased Redness Call your doctor if you observe: Fever of 101 or Higher, Inability to urinate, Inability to have a bowel movement, Using more than one pad per hour, Shortness of breath, Chest pain, Calf discomfort, Uncontrolled pain Suture Line Care: Avoid Pulling/Pushing Remove Dressing in (days):: 1 - Remove bandaid tapes in 4 days Cleanse incision/area with: Soap & Water Allergies/Adverse Reactions: Allergies No Known Allergies Allergy (Verified 09/27/19 09:58) Medications to take at Discharge Amlodipine Besylate 5 mg PO DAILY 12/30/18 Pravastatin Sodium 40 mg PO QHS 12/30/18 Albuterol IH (ProAir) [Proair Hfa] 1 puff INHALATION Q6H PRN PRN #1 inhaler 01/05/19 furosemide 40 mg tablet 40 mg PO QAM #90 tab 03/16/19 spironolactone 25 mg tablet 25 mg PO DAILY #90 tab 03/16/19 Mycophenolate Mofetil [Cellcept] 1,000 mg PO DAILY 09/27/19 Mycophenolate Mofetil [Cellcept] 500 mg PO QHS 09/27/19 Prednisone 10 mg PO DAILY 09/27/19 Vit C/E/Zn/Coppr/Lutein/Zeaxan [Preservision Areds 2 Softgel] 1 ea PO DAILY 09/27/19 Primary Care Physician: Jose Eduardo Patrick MD [Primary Care Provider] - Test Results: Test results from this visit will be discussed in further detail at your follow- up appointment, if applicable. Please Follow Up With: Espinoza - postop visit When: 1-2 weeks
[2019-10-13 09:12] LABS: Cytology, Body Fluid / CSF SEE PATHOLOGY REPORT
== END 2019-10-06 10:52 | disposition home or self-care (01) ==
LOC: SDC 05:53 → AC 05:53
PROVIDERS: Anesthesiology; PCP Family Medicine; Referring Provider Obstetrics & Gynecology; Visit Provider Obstetrics & Gynecology
PROC: (CPT 49320; principal; 2019-10-06 07:15)
DX: R97.8 Other abnormal tumor markers (principal); R18.8 Other ascites; Z11.59 Encounter for screening for other viral diseases; I10 Essential (primary) hypertension; J84.10 Pulmonary fibrosis, unspecified; E78.00 Pure hypercholesterolemia, unspecified; Z86.2 Personal history of diseases of the blood and blood-forming organs and certain disorders involving the immune mechanism; Z78.0 Asymptomatic menopausal state; Z79.899 Other long term (current) drug therapy; Z87.891 Personal history of nicotine dependence
CPT/HCPCS: 00840; 49320; 36415; 80048; 85027; 85610; 85730; 86850; 86900; 86901; 87635; 88108; 88305; 88313; 94799; J7120; J2405; U0003

== ENCOUNTER → 2019-11-08 11:15 | Outpatient (CLI) | payer MEDICARE, OTHER, SELFPAY ==
[2019-10-06 06:13] VITALS: BMI 24.5
[2019-11-08 15:57] LABS: Hematocrit 41.5 % (37-47); Hemoglobin 13.3 g/dL (12.0-15.0); Mean Corpuscular Hgb 30.4 pg (27.0-32.0); Mean Corpuscular Volume 94.7 fL (81-99); Mean Platelet Vol. 11.3 fl (6.2-12.0); POSITIVE MORPHOLOGY YES; Platelet Count 121 K/mm3 (150-450); RBC Distribution Width CV 20.6 % (11.6-14.6); RBC Distribution Width SD 71.4 fl (35.1-43.9); Red Blood Count 4.38 M/mm3 (4.2-5.4); White Blood Count 8.6 K/mm3 (4.4-11.0)
[2019-11-08 16:39] LABS: AST(SGOT) 27 U/L (15-37); Alanine Aminotransfer ALT/SGPT 34 U/L (13-56); Albumin, Serum 3.2 g/dL (3.2-5.0); Alkaline Phosphatase 94 U/L (45-117); Anion Gap 9 (5-15); CPK Total, Creatine Kinase 55 U/L (26-192); Chloride 108 mmol/L (98-107); Globulin 4.2 g/dL (2.2-4.2); Potassium 3.6 mmol/L (3.5-5.1); Protein, Total 7.4 g/dL (6.4-8.2); Sodium Level 143 mmol/L (136-145)
[2019-11-08 16:48] LABS: Scan Indicated on CBC? Y/N YES- FLAGS NOTED
== END ==
PROVIDERS: PCP Family Medicine; Referring Provider Internal Medicine Pulmonary Disease; Visit Provider Internal Medicine Pulmonary Disease
DX: J84.10 Pulmonary fibrosis, unspecified (principal)
CPT/HCPCS: 36415; 80051; 80076; 82550; 85027

== ENCOUNTER → 2019-12-08 11:28 | Outpatient (CLI) | payer MEDICARE, OTHER, SELFPAY ==
[2019-10-06 06:13] VITALS: BMI 24.5
--- NOTE | 2019-12-08 11:31 | RAD_ITS ---
STUDY: X-RAY - LUMBAR SPINE REASON FOR EXAM: Female, 83 years old. PAIN IN LOWER BACK DOWN INTO BOTH LEGS. NO KNOWN RECENT INJURY PER PATIENT. TECHNIQUE: 3 view(s) of the lumbar spine were obtained. COMPARISON: Prior abdomen and pelvic CT exam of 12/30/2018 FINDINGS: Normal lumbar lordosis. Dextroscoliosis at the thoracolumbar junction with a compensatory levoscoliosis of the lumbar spine. Mild degenerative anterolisthesis of L3 on L4 secondary to advanced facet arthrosis. Normal vertebral body height without fracture deformity. Advanced disc narrowing and discogenic sclerosis at L3-4. Advanced disc narrowing at L4-5. Neps-bv-hcqaalyv disc narrowing at other lumbar levels. Facet arthrosis primarily at L3-S1. Atherosclerotic vascular calcifications. RAD/Lumbar Spine 2 or 3 Views IMPRESSION: Dextroscoliosis at the thoracolumbar junction with a levoscoliosis of the lumbar spine. Mild anterolisthesis of L3 on L4. Negative for fracture, osteolytic or blastic bone lesion. Advanced disc narrowing at L3-4 with discogenic sclerosis, advanced disc narrowing at L4-L5 and mild to moderate disc narrowing at other lumbar levels. Facet arthrosis primarily from L3 through S1. Prior abdomen and pelvic CT exam of 12/30/2018 demonstrates evidence of spinal stenosis at L3-4 and especially at L4-5. Electronically Signed: Ginger Lee MD at 21:02 EDT , Service support ,
== END ==
PROVIDERS: PCP Family Medicine; Referring Provider Family Medicine; Visit Provider Family Medicine
DX: M47.819 Spondylosis without myelopathy or radiculopathy, site unspecified (principal)
CPT/HCPCS: 72100

== ENCOUNTER 2019-12-19 08:56 | Day surgery (SDC) | payer MEDICARE, OTHER, SELFPAY ==
[2019-10-06 06:13] VITALS: BMI 24.5
[2019-12-19] VITALS (7 sets, daily range): BP systolic 97–137; BP diastolic 49–90; PULSE 68–81; RESP 16; TEMP 36.8–37.4; O2SAT 92–97; BMI 26.8
--- NOTE | 2019-12-19 10:20 | RAD_ITS ---
PROCEDURE: Caudal block. DATE OF EXAMINATION: 12/19/2019. INDICATION: Female, 83 years old. Chronic low back pain. FLUOROSCOPY TIME (if supplied): (4 seconds) minutes/seconds. 3 images. Intraoperative fluoroscopic services provided for caudal block. RAD/Fluor Guidance for Spine Inj IMPRESSION: Intraoperative fluoroscopic services provided for caudal block. Electronically Signed: Kamaljit Logan, at 12:50 EST , Service support ,
[2019-12-19] MEDS: Lactated Ringers 1,000 ML 100 ML IV (10:31)
[2019-12-19] MEDS: Bupivacaine 0.25% 30 ML Vial (11:00)
[2019-12-19] MEDS: 0.9% Normal Saline (Pres. free 10 ML Vial (11:00)
[2019-12-19] MEDS: MethylPREDNISolone Acetate 40 MG/ML Vial IM (11:00)
--- NOTE | 2019-12-19 15:02 | PCM.OPRPT ---
Report of Operation Date of Procedure: 12/19/19 Description of Surgical Findings:: PREOPERATIVE DIAGNOSIS: Lumbosacral radiculopathy, lumbosacral degenerative disc disease, lumbosacral spinal stenosis POSTOPERATIVE DIAGNOSIS: Lumbosacral radiculopathy, lumbosacral degenerative disc disease, lumbosacral spinal stenosis PROCEDURE PERFORMED: Diagnostic/therapeutic caudal epidural steroid injection. ANESTHESIA: MAC. BLOOD LOSS: Minimal. COMPLICATIONS: None. DESCRIPTION OF PROCEDURE: History and physical of today was reviewed. Risks and benefits of the procedure were explained. The patient understood and agreed to proceed. Informed consent was obtained. IV inserted per routine protocol. The patient was taken to the operating room and placed in the prone position with a pillow positioned underneath the abdomen. The lower back and tailbone area was prepped and draped in a sterile fashion using iodine x3. Under fluoroscopy guidance on a lateral view, the caudal space was identified. The skin and subcutaneous tissue was anesthetized with approximately 3 mL of 1% lidocaine using a 25-gauge regular needle. Under direct visualization with fluoroscopy, using a 22-gauge 3-1/2-inch spinal needle, the needle was advanced via the skin through the sacral hiatus. The tip of the needle was passed through the sacrococcygeal ligament and advanced to approximately S4 area. After negative aspiration of blood or CSF, a total of 3 mL of contrast was injected to confirm correct placement of the needle as well as cephalad spread. The spread was followed to approximately L5 area. After confirmation on AP as well as lateral view and repeated negative aspiration, a total of 15 mL of preservative-free 0.125% Marcaine with 80 mg of Depo-Medrol was injected easily. The needle was then removed intact. The patient experienced no sign or symptoms of intrathecal or intravascular injection. The patient experienced no paresthesia. The procedure was completed without any apparent difficulty or any complications. The patient appeared to tolerate it well. ASSESSMENT AND PLAN: This is an 83-year-old female with lumbosacral radiculopathy, lumbosacral degenerative disc disease, lumbosacral spinal stenosis status post nonstick/therapeutic caudal epidural steroid injection. Patient will continue her current medications, the patient will follow in approximately 2 weeks for reevaluation.
== END 2019-12-19 12:10 | disposition home or self-care (01) ==
LOC: SDC 08:59 → AC 10:07
PROVIDERS: PCP Family Medicine; Referring Provider Anesthesiology Pain Medicine; Visit Provider Anesthesiology Pain Medicine
PROC: 3E0S3BZ Introduction of Anesthetic Agent into Epidural Space, Percutaneous Approach (ICD-10-PCS; CPT 62282; principal; 2019-12-19 10:15)
DX: M47.27 Other spondylosis with radiculopathy, lumbosacral region (principal); M51.17 Intervertebral disc disorders with radiculopathy, lumbosacral region; M48.07 Spinal stenosis, lumbosacral region; M46.96 Unspecified inflammatory spondylopathy, lumbar region; I10 Essential (primary) hypertension; F41.9 Anxiety disorder, unspecified; F32.9 Major depressive disorder, single episode, unspecified; E78.00 Pure hypercholesterolemia, unspecified; J84.10 Pulmonary fibrosis, unspecified; Z78.0 Asymptomatic menopausal state; Z86.2 Personal history of diseases of the blood and blood-forming organs and certain disorders involving the immune mechanism; Z79.899 Other long term (current) drug therapy; Z87.891 Personal history of nicotine dependence
CPT/HCPCS: 01992; 62323; 64483; 77003; J7120; J3490

== ENCOUNTER 2020-03-05 09:57 | Day surgery (SDC) | payer MEDICARE, SELFPAY ==
[2019-12-19 10:32] VITALS: BMI 26.8
[2020-03-05 10:00] VITALS: BP 127/63; PULSE 90; RESP 16; TEMP 36.8; O2SAT 90; BMI 26.0
--- NOTE | 2020-03-05 10:55 | SUR.PREOP ---
AT APPROXIMATELY 1030, DR Savita BRAUN FROM ANESTHESIA SPOKE TO PATIENT AND IT WAS DETERMINED PATIENT EAT BREAKFAST PRIOR TO ARRIVAL AT HOSPITAL. DR HAAS NOTIFIED, CAME TO ROOM AND SPOKE WITH PATIENT AND DAUGHTER DR AHAS PLANS TO DO THE PROCEDURE WITH LOCAL ANESTHESIA.
--- NOTE | 2020-03-05 11:01 | PCM.OPRPT ---
Report of Operation Date of Procedure: 03/05/20 Description of Surgical Findings:: PREOPERATIVE DIAGNOSIS: Lumbosacral radiculopathy, lumbosacral degenerative disc disease, lumbosacral spinal stenosis POSTOPERATIVE DIAGNOSIS: Lumbosacral radiculopathy, lumbosacral degenerative disc disease, lumbosacral spinal stenosis PROCEDURE PERFORMED: caudal epidural steroid injection. ANESTHESIA: Local. BLOOD LOSS: Minimal. COMPLICATIONS: None. DESCRIPTION OF PROCEDURE: History and physical of today was reviewed. Risks and benefits of the procedure were explained. The patient understood and agreed to proceed. Informed consent was obtained. IV inserted per routine protocol. The patient was taken to the operating room and placed in the prone position with a pillow positioned underneath the abdomen. The lower back and tailbone area was prepped and draped in a sterile fashion using iodine x3. Under fluoroscopy guidance on a lateral view, the caudal space was identified. The skin and subcutaneous tissue was anesthetized with approximately 3 mL of 1% lidocaine using a 25-gauge regular needle. Under direct visualization with fluoroscopy, using a 22-gauge 3-1/2-inch spinal needle, the needle was advanced via the skin through the sacral hiatus. The tip of the needle was passed through the sacrococcygeal ligament and advanced to approximately S4 area. After negative aspiration of blood or CSF, a total of 3 mL of contrast was injected to confirm correct placement of the needle as well as cephalad spread. The spread was followed to approximately L5 area. After confirmation on AP as well as lateral view and repeated negative aspiration, a total of 15 mL of preservative-free 0.125% Marcaine with 80 mg of Depo-Medrol was injected easily. The needle was then removed intact. The patient experienced no sign or symptoms of intrathecal or intravascular injection. The patient experienced no paresthesia. The procedure was completed without any apparent difficulty or any complications. The patient appeared to tolerate it well. ASSESSMENT AND PLAN: This is a 84-year-old female with lumbosacral radiculopathy, lumbosacral degenerative disc disease, lumbosacral spinal stenosis status post caudal epidural steroid injection, patient will continue her current medications, patient will follow approximately 2 weeks for reevaluation.
--- NOTE | 2020-03-05 11:04 | RAD_ITS ---
PROCEDURE: Caudal epidural block. DATE OF EXAMINATION: 03/05/2020. INDICATION: Female, 84 years old. Chronic low back pain. FLUOROSCOPY TIME (if supplied): (6 seconds) minutes/seconds. One single image was submitted. RAD/Fluor Guidance for Spine Inj IMPRESSION: Intraoperative imaging provided for caudal block. Electronically Signed: Kamaljit Logan MD at 8:42 EST , Service support ,
[2020-03-05] MEDS: 0.9% Normal Saline (Pres. free 10 ML Vial (11:11)
[2020-03-05] MEDS: Lidocaine 1% (5 ml sdv) 5 ML Vial (11:11)
[2020-03-05] MEDS: Bupivacaine 0.25% 30 ML Vial (11:11)
[2020-03-05] MEDS: MethylPREDNISolone Acetate 40 MG/ML Vial IM (11:11)
[2020-03-05 11:35] VITALS: BP 119/53; BP 127/63; PULSE 79; RESP 18; TEMP 37.1; O2SAT 91
[2020-03-05 12:12] VITALS: BP 127/63
== END 2020-03-05 12:12 | disposition home or self-care (01) ==
LOC: SDC 09:59 → AC 10:00
PROVIDERS: PCP Family Medicine; Referring Provider Anesthesiology Pain Medicine; Visit Provider Anesthesiology Pain Medicine
PROC: 3E0S3BZ Introduction of Anesthetic Agent into Epidural Space, Percutaneous Approach (ICD-10-PCS; CPT 62282; principal; 2020-03-05 11:15)
DX: M47.27 Other spondylosis with radiculopathy, lumbosacral region (principal); M51.17 Intervertebral disc disorders with radiculopathy, lumbosacral region; M48.07 Spinal stenosis, lumbosacral region; M46.96 Unspecified inflammatory spondylopathy, lumbar region; F41.9 Anxiety disorder, unspecified; J84.10 Pulmonary fibrosis, unspecified; Z79.899 Other long term (current) drug therapy; Z87.891 Personal history of nicotine dependence
CPT/HCPCS: 62323; 64483; 77003; J7120; A4216; J3490

== ENCOUNTER 2020-03-26 10:35 | Inpatient (IN) | payer MEDICARE, SELFPAY ==
[2020-03-26] VITALS (13 sets, daily range): BP systolic 110–150; BP diastolic 43–66; PULSE 73–111; RESP 16–25; TEMP 36.1–36.7; O2SAT 92–100; BMI 23.2; BMI 24.3
--- NOTE | 2020-03-26 10:47 | EKG12_ITS ---
Test Reason : CHEST PAIN Blood Pressure : / mmHG Vent. Rate : 074 BPM Atrial Rate : 074 BPM P-R Int : 174 ms QRS Dur : 084 ms QT Int : 382 ms P-R-T Axes : 014 -17 004 degrees QTc Int : 424 ms Normal sinus rhythm with sinus arrhythmia Poor R- wave progression Confirmed by JOHANNA ROMERO, LACIE ([id number]), editor managing newspaper VIRGIL RODRIGUEZ ([id number]) on 03/28/2020 9:00:48 AM Referred By: MICHELLE Confirmed By:LACIE SPENCER MD
--- NOTE | 2020-03-26 10:48 | ED.DCSUM_ITS ---
History of Present Illness Chief Complaint: Chest Pain Informant: Patient Narrative: 84-year-old female presents with concern for left-sided chest pain. States that it began days ago. States that she had an episode of coughing while riding in the car on the way to the doctor's appointment and began having pain in her left chest. States that evening and the next day she was feeling much improved. States that 2 days ago she began having worsening pain there in that area. States that she has not been breathing well since that time. States that she does wear oxygen at night but has been wearing 2 to 3 L at home for her comfort. Patient does have pulmonary fibrosis. Not a current smoker. Past Medical History - Allergies and Home Meds Allergies/Adverse Reactions: Allergies latex Allergy (Verified 03/26/20 10:36) Rash Primary Care Physician: Jose Eduardo Patrick MD [Primary Care Provider] - Prior records reviewed: Yes Past Medical History: - - HTN, pulmonary fibrosis Surgical History: cataract Lives: With Family Smoking Status: Former smoker Alcohol: None Drugs: None - Family History Paternal Family History: Family History (Last Reviewed 10/25/19 @ 13:[address] Sita Salter MD) Father Heart disease Myocardial infarction Mother Bleeding disorder Brother Heart disease Family History: Reports: Heart Disease Maternal Family History: Family History (Last Reviewed 10/25/19 @ 13:[address] Sita Salter MD) Father Heart disease Myocardial infarction Mother Bleeding disorder Brother Heart disease Family History: Reports: No pertinent history Review of Systems General: Denies: Chills, Fever, Sweats Eyes: Denies: Visual changes - bilaterally, Diplopia ENT: Denies: Rhinorrhea, Sore throat Cardiovascular: Denies: Chest pain, Palpitations Respiratory: Reports: Dyspnea, Cough. Denies: Dyspnea on exertion Gastrointestinal: Denies: Abdominal pain, Nausea, Vomiting, Diarrhea, Melena, Hematochezia Genitourinary: Denies: Dysuria, Hematuria, Frequency Musculoskeletal: Denies: Back pain, Extremity Pain Skin: Denies: Rash, Wounds Neurological: Denies: Headache, Weakness, Numbness Physical Exam Vital Signs/Narrative: Vital Signs Temp Pulse Resp BP Pulse Ox 03/26/20 10:47 97.0 F L 110 H 24 H 150/58 H 97 03/26/20 10:37 97.4 F L 111 H 25 H 150/58 H 98 03/26/20 10:36 98 22 H Inital Vital Signs reviewed: Yes General: Well nourished, Well developed, No Acute Distress Head: Normocephalic, Atraumatic Eyes: Perrl, EOMI ENT: Moist mucous membranes, No rhinorrhea Neck: Supple, Nontender Cardiovascular: Regular rate, Regular rhythm, No murmurs Respiratory: No distress, CTA bilaterally, - - TTP over the left chest. Abdomen: Soft, Nontender, Nondistended, Normal bowel sounds Back: Nontender, Normal Inspection Extremities: Nontender, No edema Skin: Normal color, No rash Neurological: Alert, Oriented x3, Cranial nerves II-XII grossly intact, Normal Strength, Normal Sensation Psychological: Normal affect, Normal Mood Diagnostic/Tx/Re-eval Chest X-Ray - ED: 1 View, Read by ED Physician, Read by Radiologist, Chronic Changes Clinical Impression(s) from Imaging Studies Chest X-Ray 03/26/20 10:54 IMPRESSION: Stable findings in keeping with chronic interstitial fibrosis. Electronically Signed: Kamaljit Logan MD at 11:16 EST , Service support , Abdomen/Pelvis CTA 03/26/20 11:26 IMPRESSION: Scarring at the lung bases with evidence of honeycombing. Hepatosplenomegaly. Findings suggestive of portal venous hypertension. Electronically Signed: Kamaljit Logan MD at 12:57 EST , Service support , Chest CTA 03/26/20 11:26 IMPRESSION: No evidence of pulmonary embolism. Stable chronic interstitial fibrosis with bronchiectasis and areas of confluence with the nodular densities in the right upper lobe. Electronically Signed: Kamaljit Logan MD at 12:52 EST , Service support , Laboratory Data 03/26/20 03/26/20 03/26/20 10:45 10:45 11:40 WBC 27.1 H RBC 3.39 L Hgb 10.1 L Hct 32.5 L MCV 95.9 MCH 29.8 MCHC 31.1 L RDW Std Deviation 72.0 H RDW Coeff of Kerri 20.7 H Plt Count 350 MPV 9.7 Neut % (Auto) Not Reportable Absolute Neuts (auto) 22.0 H Absolute Lymphs (auto) 2.98 Total Counted 100 Neutrophils % (Manual) 79 H Band Neutrophils % 2 Lymphocytes % (Manual) 11 L Monocytes % (Manual) 7 Myelocytes % 1 H Nucleated RBCs/100 WBC 1 Diff Path Review May foll Platelet Estimate ADEQUATE Polychromasia RARE Hypochromasia 1+ Sodium 136 Potassium 4.5 Chloride 103 Carbon Dioxide 27.0 Anion Gap 6 BUN 61 H Creatinine 1.00 Estim Creat Clear Calc 32.73 Est GFR (MDRD) Af Amer 68 Est GFR (MDRD) Non-Af 57 L BUN/Creatinine Ratio 61.1 H Glucose 200 H Lactic Acid 1.9 Calcium 8.8 Troponin I < 0.015 - Rhythm Strip Rhythm Strip: Sinus Rhythm Rate: 87 Ectopy: None - EKG Initial EKG Interpretation: Sinus Rhythm - Normal sinus rhythm at 87 bpm. MN interval 152 ms. QTC of [address] changes with slight depression in lateral leads. - Medical Decision Making Patient appears well and nontoxic. Initially tachycardic. Patient has had somewhat increased respiratory rate on exam. She is requiring 2 to 3 L by nasal cannula. Patient only uses oxygen at night until 2 days ago. Chest x-ray which was interpreted by myself shows chronic changes consistent with pulmonary fibrosis. Radiology concurs. Has significant leukocytosis. CTA of the chest abdomen pelvis was done which shows no acute changes. Lactic acid negative. Blood cultures pending. Given the patient's increasing oxygen demand I spoke with the hospitalist who are agreeable with admitting. Given her leukocytosis as well as persistent cough she will be given Zosyn. Patient admitted in stable condition. Impression: 1. Hypoxemia 2. Pulmonary fibrosis 3. Leukocytosis ED Disposition - Plan for ED Patient: Disposition: Acute Care Hospital [facility] Referrals: Jose Eduardo Patrick MD [Primary Care Provider] -
[2020-03-26 10:54] LABS: Hematocrit 32.5 % (37-47); Hemoglobin 10.1 g/dL (12.0-15.0); Mean Corp Hgb Conc 31.1 g/dL (32-36); Mean Corpuscular Hgb 29.8 pg (27.0-32.0); Mean Corpuscular Volume 95.9 fL (81-99); Mean Platelet Vol. 9.7 fl (6.2-12.0); POSITIVE COUNT YES; POSITIVE DIFFERENTIAL YES; POSITIVE MORPHOLOGY YES; Platelet Count 350 K/mm3 (150-450); RBC Distribution Width CV 20.7 % (11.6-14.6); Red Blood Count 3.39 M/mm3 (4.2-5.4)
--- NOTE | 2020-03-26 10:54 | RAD_ITS ---
STUDY: X-RAY CHEST REASON FOR EXAM: Female, 84 years old. CHEST PAIN AND SOB. HX OF PULMONARY FIBROSIS. TECHNIQUE: Single AP portable view of the chest. COMPARISON: Comparison is made with prior study dated 09/02/2019. FINDINGS: EKG electrodes are seen. Once again, there is evidence of diffuse bilateral increased interstitial markings with areas of confluence worse in the left hemithorax in keeping with chronic interstitial fibrosis. There has been no change. There is no demonstrated pleural abnormality. Normal size heart. Normal mediastinum and epi. Normal visualized pulmonary arteries. There is atherosclerotic calcification of the aortic arch with tortuosity. There are diffuse degenerative changes of the visualized thoracic spine. Normal visualized ribs, clavicles, and shoulders. There is no demonstrated abnormality of the visualized soft tissue structures of the upper abdomen. RAD/Chest 1 View (Portable) IMPRESSION: Stable findings in keeping with chronic interstitial fibrosis. Electronically Signed: Kamaljit Logan MD at 11:16 EST , Service support ,
[2020-03-26 10:56] LABS: Differential Indicated MANUAL DIFF; White Blood Count 27.1 K/mm3 (4.4-11.0)
[2020-03-26 11:12] LABS: Anion Gap 6 (5-15); BUN 61 mg/dL (7-18); BUN/Creat Ratio 61.1 RATIO (10-20); Calcium,Total 8.8 mg/dL (8.5-10.1); Chloride 103 mmol/L (98-107); EST Glomerular Filtration Rate 57 mL/min (>60); Est Glom Filt Rate - Afr Amer 68 mL/min (>60); Estimated Creatinine Clearance 32.73 ml/min; Glucose 200 mg/dL (74-106); Potassium 4.5 mmol/L (3.5-5.1); Sodium Level 136 mmol/L (136-145)
[2020-03-26 11:15] LABS: Lymphocyte 11 % (19-41); Monocyte 7 % (0-10); Myelocyte 1 (0-0); Neutrophil-Band 2 % (0-5); Neutrophil-Segmented 79 % (47-70); Nucleated Red Bld Cells,Manual 1 % (0-5); Total Cells Counted 100 (MANUAL DIFF)
[2020-03-26 11:16] LABS: Hypochromasia 1+; Platelet Estimate ADEQUATE (ADEQ); Polychromasia RARE
[2020-03-26 11:17] LABS: Absolute Lymphocyte Count 2.98 X10^3/uL (0.83-4.51)
--- NOTE | 2020-03-26 11:26 | CT_ITS ---
STUDY: CTA CHEST REASON FOR EXAM: Female, 84 years old. SOB,COUGH, CP, ABD PAIN, HTN, HX-PULMONARY FIBROSIS, PREV HEART CATH RADIATION DOSAGE (If Supplied By Facility): CTDIvol = ( 11.46 ) mGy, DLP = ( 761.77 ) mGycm TECHNIQUE: The examination was performed with the intravenous administration of IV 100mL Isovue-370. Post-processing of the angiographic images was performed, with multiplanar reformation and 3D reconstruction. Individualized dose optimization techniques were used for this CT. COMPARISON: Comparison is made with prior examination dated 09/05/2019. FINDINGS: Normal enhancement of the main pulmonary artery and right and left pulmonary arteries. Normal enhancement of the bilateral peripheral pulmonary arteries. There is no demonstrated pulmonary embolism. Normal thoracic aorta and visualized great vessels. There is no demonstrated aortic dissection. Normal heart and pericardium. There are visualized mediastinal lymph nodes, which are within normal size limits, and with normal morphology. Normal hilar regions. Normal visualized trachea and bronchi. The lungs are well expanded. Once again, there is evidence of increased interstitial markings in both lungs with evidence of a septal thickening and areas of confluence with groundglass opacities and traction bronchiectasis. Stable nodular areas of consolidation in the right upper lobe. Normal pleura. Normal chest wall structures. There are degenerative changes of thoracic spine. Normal visualized upper abdomen. CT/CTA Chest W/WO Contrast IMPRESSION: No evidence of pulmonary embolism. Stable chronic interstitial fibrosis with bronchiectasis and areas of confluence with the nodular densities in the right upper lobe. Electronically Signed: Kamaljit Logan MD at 12:52 EST , Service support ,
--- NOTE | 2020-03-26 11:26 | CT_ITS ---
STUDY: CT ABDOMEN AND PELVIS WITH CONTRAST REASON FOR EXAM: Female, 84 years old. SOB,COUGH, CP, ABD PAIN, HTN, HX-PULMONARY FIBROSIS, PREV HEART CATH RADIATION DOSAGE (If Supplied By Facility): CTDIvol = ( 11.46 ) mGy, DLP = ( 761.77 ) mGycm TECHNIQUE: Transaxial images were obtained from the dome of the diaphragm to the symphysis pubis without oral contrast. IV 100mL Isovue-370 was administered. Sagittal and coronal images were reconstructed. Individualized dose optimization techniques were used for this CT. COMPARISON: Comparison is made with prior study dated 12/30/2018. FINDINGS: Since prior study, there has been progressive interstitial fibrosis with honeycombing in the visualized lung bases. The visualized portions of the heart are within normal limits. There is decreased attenuation of the liver consistent with steatosis. The previously seen ascites has cleared. Normal gallbladder and extrahepatic biliary system. No definite gallstone is seen at this time. There is mild splenomegaly. Varicosities are seen in the splenic hilum. There is prominence of the portal venous system. Varicosities are seen in the subcutaneous tissues overlying the anterior abdominal wall more prominent on the left side. Findings are suggestive of portal hypertension. Normal pancreas. Normal bilateral adrenal glands. Normal right kidney. Normal left kidney. Normal visualized stomach. Normal small intestine. There are multiple colonic diverticula consistent with diverticulosis. The appendix is visualized and appears normal. There is atherosclerotic calcification of the abdominal aorta, without a demonstrated aneurysm. Normal inferior vena cava. Normal retroperitoneum. Normal urinary bladder. Normal abdominal wall. There are diffuse degenerative changes of the visualized lumbar spine. Loss of height of several lumbar vertebrae. Levoscoliosis. CT/CT ANGIO ABD&PEL W/O&W/DYE IMPRESSION: Scarring at the lung bases with evidence of honeycombing. Hepatosplenomegaly. Findings suggestive of portal venous hypertension. Electronically Signed: Kamaljit Logan MD at 12:57 EST , Service support ,
[2020-03-26] MEDS: 0.9% Normal Saline 1,000 ML 999 ML IV (12:04)
[2020-03-26 12:13] LABS: Lactic Acid 1.9 mmol/L (0.4-1.9)
--- NOTE | 2020-03-26 13:25 | NURSING ---
DR MARTINEZ IN ER
--- NOTE | 2020-03-26 13:54 | NURSING ---
MED SURG HYPOXEMIA MICHELLE
--- NOTE | 2020-03-26 14:05 | PCM.HP.STD ---
Problem List (1) Pulmonary fibrosis Status: Chronic (2) Acute respiratory insufficiency Status: Acute (3) Atypical chest pain Status: Acute (4) Mitral insufficiency Status: Chronic Qualifiers: Cardiac valve disease etiology: etiology unspecified Qualified Code(s): I34.0 - Nonrheumatic mitral (valve) insufficiency (5) Ascites Status: Chronic Qualifiers: Ascites type: other type Qualified Code(s): R18.8 - Other ascites (6) Elevated tumor markers Status: Chronic (7) Preoperative cardiovascular examination Status: Chronic (8) Essential hypertension Status: Chronic (9) Anemia Status: Resolved (10) GI bleed Status: Resolved Qualifiers: GI bleed type/associated pathology: unspecified gastrointestinal hemorrhage type Qualified Code(s): K92.2 - Gastrointestinal hemorrhage, unspecified (11) Ascites Status: Resolved Qualifiers: (12) Abdominal distention Status: Resolved History of Present Illness Date of Admission: 03/26/20 Chief Complaint: Chest pain shortness of breath for about 1 week The patient is a 84 year old F with history of pulmonary fibrosis, being managed by Dr. Montero came to ED with shortness of breath and chest pain for about 1 week. Her chest pain got worse on weekend and its mainly pleuritic type with increased on coughing, movement and inspiration. Its mainly on the left lower ribs but he states it hurts all over bilaterally. She has chronic cough which has increased but there is no change in his sputum which is still clear. Denies any fever or chills. Usually, she is on 2 to 3 L O2 only at night but for last for 5 days she is using continuously. Triage vitals, respiratory rate 25, heart rate 111/min, pulse ox 98% on 3 L of oxygen, BP 150/58. The patient had CTA chest and CT abdomen pelvis with contrast. She has leukocytosis, WBC 27,000 with ANC 22,000, left shift she is also on prednisone 10 mg daily. Past Medical History Past Medical History (Chronic Problems): Chronic Problems (Last Reviewed 10/25/19 @ 13:[address] Sita Salter MD) Pulmonary fibrosis (Chronic) Mitral insufficiency (Chronic) Ascites (Chronic) Elevated tumor markers (Chronic) Preoperative cardiovascular examination (Chronic) Essential hypertension (Chronic) Medical History: Medical History (Last Reviewed 10/25/19 @ 13:[address] Sita Salter MD) Essential hypertension (Chronic) I10 Anemia (Resolved) D64.9 GI bleed (Resolved) K92.2 Ascites (Resolved) R18.8 Abdominal distention (Resolved) R14.0 Depression F32.9 Hyperlipidemia E78.5 Macular degeneration H35.30 Pulmonary fibrosis J84.10 Allergies latex Allergy (Verified 03/26/20 10:36) Rash Home Medications: Ambulatory Orders Medication Instructions Recorded Pravastatin Sodium 40 mg PO QHS 12/30/18 Albuterol IH (ProAir) [Proair Hfa] 1 puff INHALATION Q6H PRN PRN #1 01/05/19 inhaler Prednisone 10 mg PO DAILY 09/27/19 Vit C/E/Zn/Coppr/Lutein/Zeaxan 1 ea PO BID 12/16/19 [Preservision Areds 2 Softgel] Acetaminophen [Tylenol Extra 1,000 mg PO DAILY PRN 03/26/20 Strength] Amlodipine [Norvasc] 5 mg PO DAILY 03/26/20 Furosemide 40 mg PO DAILY 03/26/20 Ibuprofen 400 mg PO DAILY PRN 03/26/20 Loratadine [Claritin] 10 mg PO DAILY PRN 03/26/20 Meloxicam [Mobic] 7.5 mg PO DAILY 03/26/20 Spironolactone 25 mg PO DAILY 03/26/20 Surgical History: Surgical History (Last Reviewed 10/25/19 @ 13:[address] 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 Sita Salter MD) Father Heart disease Myocardial infarction Mother Bleeding disorder Brother Heart disease History Items: No pertinent history Paternal Family History: Family History (Last Reviewed 10/25/19 @ 13:[address] Sita Salter MD) Father Heart disease Myocardial infarction Mother Bleeding disorder Brother Heart disease History Items: Heart Disease Review of Systems Constitutional: Reports: Anorexia, Malaise, Weakness, Weight Change - She lost about 10 pounds in 1 month from 140-130 pounds.. Denies: Chills, Fever HEENT: Denies: Head Aches, Sinus Congestion, Sinus Drainage Cardiovascular: Denies: Chest Pain, Palpitations Respiratory: Reports: Cough, Pleuritic Pain, Shortness of Breath, Shortness of breath at rest, Shortness of breath upon exertion, Sputum production. Denies: Hemoptysis Gastrointestinal: Denies: Abdominal Pain, Constipation, Diarrhea, Hematemesis, Hematochezia, Nausea, Melena, Vomiting Genitourinary: Denies: Dysuria, Frequency, Hesitancy Musculoskeletal: Reports: Joint Pain, Joint stiffness. Denies: Joint Tenderness Skin: Denies: Rash, Wounds Neurological: Reports: Balance problems. Denies: Focal weakness, Numbness, Tingling Psychiatric: Reports: Anxiety. Denies: Depression, Homicidal Ideations, Suicidal Ideations Hematologic/ Lymphatic: Denies: Easy Bruising, Easy Bleeding VTE Information - Inpt Only VTE Present on Admission: No VTE Mechan Device Prophylaxis: None VTE Pharm Prophylaxis ordered?: Yes Patient Problems: Active and Suspected Problems (Last Reviewed 10/25/19 @ 13:[address] Sita Salter MD) Acute respiratory insufficiency (Acute) Atypical chest pain (Acute) Objective: Exam: General: Alert, Oriented x3, Cooperative, BMI 23.2 kg/m?, thin build HEENT: Atraumatic, PERRLA, EOMI, Normocephalic Oral: Oral mucosa is dry. No Gingival or Mucosal Lesions/ Ulcerations Neck: Supple, No JVD, Negative Carotid Bruits Lungs: Air entry diminished more on the right side. Diffuse inspiratory Velcro crepitations present. Mild dyspnea at rest Cardiovascular: Regular rate, Regular Rhythm, Normal S1, P2 loud, systolic murmur over cardiac apex. Abdomen: Bowel Sounds Present, Soft, Non Tender, Non-Distended : No renal angle tenderness. No suprapubic tenderness. Extremities: No edema, Capillary Refill Less than 3 Seconds Skin: No rashes, No breakdown Musculoskeletal: No Tenderness to Palpation of Joints or Extremities Neurological: Cranial nerves II-XII grossly intact, Deep Tendon Reflexes 2+/4 and Symmetrical, Neuro grossly intact Psych/Mental Status: Normal Affect, Appropriate. - Physical Exam Vitals/I&O's: Vital Signs Temp Pulse Resp BP Pulse Ox 97.0 F L 110 H 24 H 150/58 H 97 03/26/20 10:47 03/26/20 10:47 03/26/20 10:47 03/26/20 10:47 03/26/20 10:47 Oxygen Flow Rate (L/min) 3 Oxygen Delivery Method Nasal Cannula Weight: 122 lb 12.76 oz Body Mass Index (BMI) 23.2 Microbiology Past 72 Hours 03/26/20 12:01 Mucosa - Nose SARS-CoV-2 Antigen (Rapid) - Final Laboratory Results 03/26/20 10:45: WBC 27.1 H, RBC 3.39 L, Hgb 10.1 L, Hct 32.5 L, MCV 95.9, MCH 29.8, MCHC 31.1 L, RDW Std Deviation 72.0 H, RDW Coeff of Kerri 20.7 H, Plt Count 350, MPV 9.7, Neut % (Auto) Not Reportable, Absolute Neuts (auto) 22.0 H, Absolute Lymphs (auto) 2.98, Total Counted 100, Neutrophils % (Manual) 79 H, Band Neutrophils % 2, Lymphocytes % (Manual) 11 L, Monocytes % (Manual) 7, Myelocytes % 1 H, Nucleated RBCs/100 WBC 1, Diff Path Review June, Platelet Estimate ADEQUATE, Polychromasia RARE, Hypochromasia 1+ 03/26/20 10:45: Sodium 136, Potassium 4.5, Chloride 103, Carbon Dioxide 27.0, Anion Gap 6, BUN 61 H, Creatinine 1.00, Estim Creat Clear Calc 32.73, Est GFR (MDRD) Af Amer 68, Est GFR (MDRD) Non-Af 57 L, BUN/Creatinine Ratio 61.1 H, Glucose 200 H, Calcium 8.8, Troponin I < 0.015 03/26/20 11:40: Lactic Acid 1.9 Current Medications Piperacillin Sod/Tazobactam (Sod 3.375 gm/ Sodium Chloride) 50 mls @ 100 mls/hr IV X1 ONE Stop: 03/26/20 14:17 Assessment/Plan All Active Problems (Last Reviewed 10/25/19 @ 13:[address] Sita Salter MD) Acute respiratory insufficiency (Acute) Atypical chest pain (Acute) Anemia (Resolved) GI bleed (Resolved) Ascites (Resolved) Abdominal distention (Resolved) The patient is a 84 year old F with history of pulmonary fibrosis, being managed by Dr. Montero came to ED with shortness of breath and chest pain for about 1 week. The patient had CTA chest and CT abdomen pelvis with contrast. She has leukocytosis, WBC 27,000 with ANC 22,000, left shift she is also on prednisone 10 mg daily. 1. Acute on chronic respiratory insufficiency secondary to pulmonary fibrosis exacerbation: Patient is being admitted in PCU. I called Dr. Montero and discussed with him and is been consulted. CTA chest shows no evidence of PE, stable chronic interstitial fibrosis with traction bronchiectasis and areas of confluence/nodular density at right upper lobe. CT abdomen and pelvis with contrast shows features of portal hypertension, hepatosplenomegaly and honeycombing at lung bases. Patient got 1 dose of Zosyn in ER Patient started on Solu-Medrol 40 g every 8 hourly, ceftriaxone, Zithromax, bronchodilator as needed, Mucinex, BiPAP as needed or at night, and PEP. Vest therapy if needed. 2. Atypical pleuritic type chest pain: Cycle cardiac enzymes. Patient had echo in the summer 2018 reported as below. On exam, patient has reproducible tenderness over left lower ribs and left upper chest therefore seems pleuritic/musculoskeletal in origin. Patient was further evaluated by right-sided heart cath and coating mixer supervisor Dr. Salter. At that time cardiac MRI was discussed with the patient family and thought it will not change the course of the disease. Right heart cath did not reveal elevated right-sided pressure. Interpretation Summary Left ventricular systolic function is normal. The estimated ejection fraction is 60 %. The left atrium is moderately enlarged. Mild-Moderate (1-2+) mitral valve insufficiency. Moderate (2+) eccentric tricuspid valve insufficiency. Mild diffuse aortic valve thickening. Mild focal aortic valve calcification. Mild (1+) pulmonic valve insufficiency. Right ventricular systolic pressure estimated to be 36 mmHg. There is evidence of diastolic dysfunction. 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 Consider further evaluation with cardiac MRI if clinically indicated. 3. Ascites with portal hypertension: Patient had liver biopsy which showed chronic portal and hepatic parenchyma inflammation but not cirrhosis. Choir Director thinks ascites is noncardiac. Patient also had colonoscopy and found entire colon was normal. EGD showed grade 2 esophageal varices. CA-125 antigen elevated 52.6. CA 19-9 530 elevated. CEA normal. Patient further had transvaginal ultrasound in July 2019 reported as persistent thickening of endometrium with fluid distention. No demonstrated endometrial mass. Left ovary was visualized and no cyst or mass. 4. Other comorbidities include hypertension, mild anemia, history of GI bleed in December 2018, and chronic respiratory insufficiency: As mentioned above Living will/advanced directive/end of life care: Patient does not have living will or advanced directive. Her daughter, Mrs. Shobha Underwood is power of shelter monitor for health. After discussion of benefits/risks procedures involved with full code, DNR CC arrest and DNR CC, the patient opted for DNR-CC Arrest with no intubation. Patient was told to further discuss with her daughter and the marketing editor Dr. Montero was present in the room. Dr. Montero said that she might have 12 months to 18 months of life expectancy because of lung fibrosis. Patient does not want artificial life support including intubation, tube feed, ventilator and/chest compression, central venous catheter, vasopressor and DC shock if needed Total time spent in [id number] encounter in discussion of advanced directive 16 minutes. Clinical Impression(s) from Imaging Studies Chest X-Ray 03/26/20 10:54 IMPRESSION: Stable findings in keeping with chronic interstitial fibrosis. Abdomen/Pelvis CTA 03/26/20 11:26 IMPRESSION: Scarring at the lung bases with evidence of honeycombing. Hepatosplenomegaly. Findings suggestive of portal venous hypertension. Chest CTA 03/26/20 11:26 IMPRESSION: No evidence of pulmonary embolism. Stable chronic interstitial fibrosis with bronchiectasis and areas of confluence with the nodular densities in the right upper lobe. Inpatient E&M: 06975 Init Hosp L3 Procedures: 68746 Advncd Care Plan 30 Min
--- NOTE | 2020-03-26 14:21 | NURSING ---
PCU MICHELLE PULM FIBROSIS EXAC, CP
[2020-03-26 14:58] LABS: AST(SGOT) 37 U/L (15-37); Alanine Aminotransfer ALT/SGPT 47 U/L (13-56); Albumin, Serum 2.8 g/dL (3.2-5.0); Alkaline Phosphatase 160 U/L (45-117); Bilirubin, Direct 0.22 mg/dL (0.00-0.30); Globulin 5.1 g/dL (2.2-4.2); Protein, Total 7.9 g/dL (6.4-8.2)
--- NOTE | 2020-03-26 17:30 | EKG12_ITS ---
Test Reason : CP Blood Pressure : / mmHG Vent. Rate : 087 BPM Atrial Rate : 087 BPM P-R Int : 152 ms QRS Dur : 070 ms QT Int : 334 ms P-R-T Axes : 034 -22 024 degrees QTc Int : 401 ms Normal sinus rhythm with sinus arrhythmia Leftward axis Poor R wave progression Nonspecific ST abnormality Abnormal ECG Confirmed by JOHANNA ROMERO, LACIE ([id number]), international editorial producer INDRA AKERS ([id number]) on 03/29/2020 9:26:03 AM Referred By: JAMES Confirmed By:LACIE SPENCER MD
[2020-03-26 17:56] LABS: Magnesium 2.3 mg/dL (1.6-2.6)
[2020-03-26] MEDS: 0.9% Saline Lock 10 ML Syringe IV (18:08)
[2020-03-26] MEDS: oxyCODONE 5 MG Tablet PO (18:08)
[2020-03-26 19:02] LABS: Lactic Acid 2.7 mmol/L (0.4-1.9)
[2020-03-26] MEDS: 0.9% Normal Saline 1,000 ML 100 ML IV (20:01)
[2020-03-26 22:30] LABS: Reflex Lactate? Y
[2020-03-26] MEDS: Pravastatin 40 MG Tablet PO (22:55)
[2020-03-26] MEDS: guaiFENesin 1,200 MG Tablet 1200 MG PO (22:55)
[2020-03-26] MEDS: Multivitamin (Healthy Eyes) Capsule 1 CAP PO (22:55)
[2020-03-27] VITALS (16 sets, daily range): BP systolic 123–152; BP diastolic 51–89; PULSE 55–78; RESP 15–18; TEMP 36.2–37; O2SAT 97–100
[2020-03-27 00:06] LABS: Bedside Glucose 182 mg/dL (70-110)
[2020-03-27 00:34] LABS: Lactic Acid 1.6 mmol/L (0.4-1.9)
--- NOTE | 2020-03-27 04:11 | PCS.PANDOC ---
PANDEMIC DOCUMENTATION INITIATED: Date: 03/26/2020 Time: 5134
[2020-03-27 05:17] LABS: Absolute Lymphocyte Count 0.75 X10^3/uL (0.83-4.51); Absolute Neutrophil Count 10.1 X10^3/uL (2.0-7.7); Basophil# 0.03 X10^3/uL; Basophil% 0.3 % (0-1); Hematocrit 26.7 % (37-47); Lymphocyte # 0.75 X10^3/ul (4.0); Lymphocyte % 6.6 % (19-41); Mean Corpuscular Hgb 29.5 pg (27.0-32.0); Mean Corpuscular Volume 98.5 fL (81-99); Mean Platelet Vol. 9.9 fl (6.2-12.0); Monocyte# 0.22 X10^3/uL; Monocyte% 1.9 % (0-10); NRBC Flagged by Analyzer 0.2 % (0-5); Neutrophil # 10.11 X10^3/uL (2.7-7.7); Neutrophil % 88.5 % (47-70); POSITIVE MORPHOLOGY YES; Platelet Count 130 K/mm3 (150-450); RBC Distribution Width CV 20.7 % (11.6-14.6); RBC Distribution Width SD 73.7 fl (35.1-43.9); Red Blood Count 2.71 M/mm3 (4.2-5.4); White Blood Count 11.4 K/mm3 (4.4-11.0)
[2020-03-27 05:18] LABS: Differential Indicated SCAN CRITERIA MET
[2020-03-27 05:44] LABS: Hypochromasia RARE; Microcytosis RARE
[2020-03-27 05:46] LABS: Anion Gap 6 (5-15); BUN 42 mg/dL (7-18); BUN/Creat Ratio 52.4 RATIO (10-20); Calcium,Total 8.2 mg/dL (8.5-10.1); Chloride 107 mmol/L (98-107); EST Glomerular Filtration Rate 73 mL/min (>60); Est Glom Filt Rate - Afr Amer 88 mL/min (>60); Estimated Creatinine Clearance 40.91 ml/min; Glucose 167 mg/dL (74-106); Potassium 4.5 mmol/L (3.5-5.1); Sodium Level 139 mmol/L (136-145)
[2020-03-27 06:40] LABS: Bedside Glucose 209 mg/dL (70-110)
[2020-03-27] MEDS: Furosemide 40 MG Tablet PO (09:35)
[2020-03-27] MEDS: Meloxicam 7.5 MG Tablet PO (09:36)
[2020-03-27] MEDS: Spironolactone 25 MG Tablet PO (09:36)
[2020-03-27] MEDS: Multivitamin (Healthy Eyes) Capsule 1 CAP PO ×2 (09:36→20:38)
[2020-03-27] MEDS: guaiFENesin 1,200 MG Tablet 1200 MG PO ×2 (09:36→20:38)
[2020-03-27 09:53] LABS: Iron 25 ug/dL (50-170); Iron Binding Capacity,Total 344 ug/dL (250-450); PERCENT IRON SATURATION 7.3 % (15.0-55.0)
--- NOTE | 2020-03-27 09:53 | CASEMGMT ---
Addendum entered by Deyanira Chatman 03/27/20 10:28: Call back from Xin at [facility] and she states pt's most recent home oxygen order is for 2L w/ exertion and pt will need tested on this at time of discharge. She also states that pt had an order for 2L at bedtime within a couple weeks prior to the 2L w/ exertion. Pt has been wearing 3L at bedtime. CM to follow. SStaten IVAN BRAVO Original Note: IVAN BRAVO assessment: Face to Face with patient for initial transition planning/care coordination assessment. IVAN BRAVO introduced self and role at [facility], pt voices understanding and consents to assessment at this time. Pt is sitting up in bed on 3L nc continuous w/ some SOB at this time. Pt is A/Ox4 at this time and answers all questions appropriately at this time. Care providers, pharmacy, and demographics verified at this time. Presentation: Pt brought in by family fo SOB and CP that started last week and became worse on the weekend. Hx pulm fibrosis Admitting dx: Pulm fibrosis, CP PCP: Darnell Specialists: ru Montero; WOLF Quinones Preferred Pharmacy: [facility] Insurance: [facility] Prescription Benefit: Yes Living Will/HPOA: Pt states has LW/HPOA and is aware that they are not on file at [facility] at this time. Pt states her daughter, Shobha Underwood, is HPOA. LNOK: Shobha Underwood, daughter/HPOA Living Arrangements: Pt states lives with , daughter, and son-in-law on main level of 2 story home and states no concerns at home at this time. Pt states is normally independent with ADL's but daughter has taken over all cooking in the last couple weeks d/t pt fatigue. Transportation: Pt states family drives and states no transportation concerns at this time. DME/HHC: Pt states has the following DME: cane, walker, w/c, chair lift, grab bars, shower chair, nebulizer, and 3L home oxygen at bedtime only thru [facility]. Message left with Xin at [facility] to verify pt order at this time. Pt states no hx of HHC or SNF in the past. Pt states no concerns with going home at time of discharge. Pt states is retired. Pt states does not smoke cigarettes or drink ETOH. Pt states no further concerns/needs at this time. CM to follow for increased home oxygen need and any further discharge planning/needs. Advised pt to ask for CM if any further questions/concerns/needs arise, voices understanding. Pt Goal: Home Plan: Home w/ new O2 order, pending testing. SStkennedi LOVE CM
[2020-03-27 12:53] LABS: Pathologist Review Reviewed
--- NOTE | 2020-03-27 16:32 | PN_ITS ---
Patient Problems: Active and Suspected Problems (Last Reviewed 10/25/19 @ 13:[address] Sita Salter MD) Acute respiratory insufficiency (Acute) Atypical chest pain (Acute) Subjective: Patient was seen and examined today, I talked with pulmonary medicine who was seeing the patient this morning during the time of my visit, patient has no more complaints of any chest pain, her cardiac enzymes did not elevate significantly, pulmonary medicine does not feel the patient needs to be on IV corticosteroids or IV antibiotics at this time. Patient's hemoglobin this morning was low, patient denies any bright red rectal bleeding or any dark stools, she does take Mobic however. I have decided it would be best to transfuse the patient given her severe lung disease, I ordered an iron level which came back low and so I have administered Venofer today. - Physical Exam Vitals/I&O's: Vital Signs Temp Pulse Resp BP Pulse Ox 98.6 F 78 17 128/62 H 99 03/27/20 15:44 03/27/20 15:44 03/27/20 15:44 03/27/20 15:44 03/27/20 15:44 Oxygen Flow Rate (L/min) 3 Oxygen Delivery Method Nasal Cannula Weight: 59.9 kg Body Mass Index (BMI) 24.3 Intake and Output for Last 24 Hours 03/25/20 03/26/20 03/27/20 23:59 23:59 23:59 Intake Total 1425 / 1425 1398.33 / 1398.33 Output Total 250 / 250 300 / 300 Balance 1175 / 1175 1098.33 / 1098.33 General: Alert, Oriented x3, Cooperative HEENT: Atraumatic, PERRLA, EOMI, Normocephalic Oral: Moist Mucosa Neck: Supple, No JVD, Trachea Midline, Thyroid Normal Size and Texture Lungs: Normal air movement, No rhonchi, No wheeze, Rales - Inspiratory rales are noted over all lung hendricks bilaterally Cardiovascular: Regular rate, Regular Rhythm, Normal S1, Normal S2, No murmurs, PMI Normal, No rub noted, No Gallop Abdomen: Bowel Sounds Present, Soft, Non Tender, Non-Distended, No hernias noted Extremities: No clubbing, No cyanosis, No edema, Capillary Refill Less than 3 Seconds Skin: No rashes, No breakdown Musculoskeletal: No Tenderness to Palpation of Joints or Extremities Neurological: Cranial nerves II-XII grossly intact, Neuro grossly intact, Sensory exam intact to light touch and pain, Coordination normal Psych/Mental Status: Normal Affect, Appropriate, Alert and oriented to time, place, person, mood and affect Microbiology Past 72 Hours 03/27/20 01:10 Sputum, Expectorated/Coughed Gram Stain - Final 03/27/20 Unknown Urine, Clean Catch Streptococcus pneumoniae Antigen (M - Final 03/26/20 14:05 Mucosa - Nose Respiratory Panel (PCR) - Final 03/26/20 19:30 Urine, Clean Catch Legionella Antigen - Final 03/26/20 12:01 Mucosa - Nose SARS-CoV-2 Antigen (Rapid) - Final Laboratory Results 03/26/20 10:45: Diff Path Review Reviewed 03/26/20 10:45: Magnesium 2.3 03/26/20 14:05: COVID-19 ([facility]) Not Detected 03/26/20 18:24: Lactic Acid 2.7 H* 03/26/20 18:24: Troponin I < 0.015 03/26/20 20:56: Troponin I < 0.015 03/26/20 23:59: POC Glucose 182 H 03/27/20 00:00: Troponin I < 0.015 03/27/20 00:00: Lactic Acid 1.6 03/27/20 04:54: WBC 11.4 H, RBC 2.71 L, Hgb 8.0 L, Hct 26.7 L, MCV 98.5, MCH 29.5, MCHC 30.0 L, RDW Std Deviation 73.7 H, RDW Coeff of Kerri 20.7 H, Plt Count 130 L, MPV 9.9, Immature Gran % (Auto) 2.700 H, Neut % (Auto) 88.5 H, Lymph % (Auto) 6.6 L, Mcnairy % (Auto) 1.9, Eos % (Auto) 0.0, Baso % (Auto) 0.3, Absolute Neuts (auto) 10.1 H, Absolute Lymphs (auto) 0.75 L, Nucleated RBC % 0.2, Hypochromasia RARE, Microcytosis RARE 03/27/20 04:54: Sodium 139, Potassium 4.5, Chloride 107, Carbon Dioxide 26.0, Anion Gap 6, BUN 42 H, Creatinine 0.80, Estim Creat Clear Calc 40.91, Est GFR (MDRD) Af Amer 88, Est GFR (MDRD) Non-Af 73, BUN/Creatinine Ratio 52.4 H, Glucose 167 H, Calcium 8.2 L, TSH 0.50 03/27/20 04:54: Iron 25 L, TIBC 344, Iron Saturation 7.3 L 03/27/20 05:18: POC Glucose 209 H 03/27/20 10:30: Blood Type O POSITIVE, Antibody Screen NEGATIVE, Crossmatch See Detail Current Medications Acetaminophen (Acetaminophen 325 Mg Tablet) 650 mg PO Q6H PRN PRN PRN Reason: Pain Score 1-10/Temp > 100.7 F Al Hydroxide/Mg Hydroxide (Mag Hydrox/Al Hydrox/Simeth 30 Ml Udc) 30 ml PO Q6H PRN PRN PRN Reason: Gastric Burning Albuterol/Ipratropium (Ipratropium/Albuterol Sulfate 3 Ml Ampul.Neb) 3 ml INHALATION Q4H.RT PRN PRN Reason: sob Amlodipine Besylate (Amlodipine 5 Mg Tablet) 5 mg PO DAILY [facility] Enoxaparin Sodium (Enoxaparin 40 Mg/0.4 Ml Syringe) 40 mg SC DAILY [facility] Last Admin: 03/27/20 09:37 Dose: Not Given Documented by: Furosemide (Furosemide 40 Mg Tablet) 40 mg PO DAILY [facility] Last Admin: 03/27/20 09:35 Dose: 40 mg Documented by: Guaifenesin (Guaifenesin 1,200 Mg Tablet) 1,200 mg PO BID [facility] Last Admin: 03/27/20 09:36 Dose: 1,200 mg Documented by: Morphine Sulfate (Morphine 2 Mg/Ml Syringe) 2 mg IV Q3H PRN PRN PRN Reason: Pain Score 6-10 Multivitamins/Minerals (Multivitamin (Healthy Eyes) Capsule) 1 capsule PO BID [facility] Last Admin: 03/27/20 09:36 Dose: 1 capsule Documented by: Nitroglycerin (Nitroglycerin (Inpatient Use) 0.4 Mg Tab.Subl) 0.4 mg SUBLINGUAL Q5M PRN PRN Reason: CARDIAC/CHEST PAIN Oxycodone HCl (Oxycodone 5 Mg Tablet) 5 mg PO Q4H PRN PRN PRN Reason: Pain Score 4-5 Last Admin: 03/26/20 18:08 Dose: 5 mg Documented by: Pantoprazole Sodium (Pantoprazole Sodium 40 Mg Tablet) 40 mg PO DAILY [facility] Pravastatin Sodium (Pravastatin 40 Mg Tablet) 40 mg PO QHS [facility] Last Admin: 03/26/20 22:55 Dose: 40 mg Documented by: Prednisone (Prednisone 10 Mg Tablet) 10 mg PO DAILY@0800 [facility] Prochlorperazine Edisylate (Prochlorperazine 10 Mg/2 Ml Vial) 5 mg IV Q4H PRN PRN PRN Reason: Breakthrough Nausea/Vomiting Senna/Docusate Sodium (Senna/Docusate Sodium 1 Tablet) 2 tablet PO BID PRN PRN PRN Reason: Constipation Sodium Chloride (0.9% Saline Lock 10 Ml Syringe) 10 - 40 ml IV UD PRN PRN Reason: SALINE FLUSH Last Admin: 03/26/20 18:08 Dose: 10 ml Documented by: Spironolactone (Spironolactone 25 Mg Tablet) 25 mg PO DAILY [facility] Last Admin: 03/27/20 09:36 Dose: 25 mg Documented by: Medical Necessity - Tobacco Use Smoking Status: Former smoker Assessment/Plan All Active Problems (Last Reviewed 10/25/19 @ 13:[address] Sita Salter MD) Acute respiratory insufficiency (Acute) Atypical chest pain (Acute) Anemia (Resolved) GI bleed (Resolved) Ascites (Resolved) Abdominal distention (Resolved) #1 atypical chest pain-etiology unclear, I do not feel the patient needs a cardiology work-up, this chest discomfort may have been musculoskeletal in nature as the patient was having episodes of severe coughing at home #2 acute anemia-etiology unclear, patient will have blood transfusion today, patient will be taken off of her Mobic, she will be placed on a PPI orally, on an EGD performed on 01/03/2019, patient had grade 2 esophageal varices in the lower third of the esophagus. There was some mild inflammation noted in the second portion of the duodenum. Patient's serum iron at that time was 15 #3 iron deficiency anemia-I will give the patient Venofer today, again patient's serum iron in 2019 was 15 #4 severe pulmonary fibrosis-patient will remain on prednisone 10 mg daily #5 chronic hypoxic respiratory failure secondary to severe pulmonary fibrosis- patient is currently at her home oxygen setting, pulse ox will be monitored #6 essential hypertension #7 chronic pain secondary to osteoarthritis Inpatient E&M: 58080 Subs Hosp L2
[2020-03-27] MEDS: Pantoprazole Sodium 40 MG Tablet PO (17:03)
[2020-03-27] MEDS: oxyCODONE 5 MG Tablet PO (20:37)
[2020-03-27] MEDS: Pravastatin 40 MG Tablet PO (20:40)
[2020-03-28] VITALS (7 sets, daily range): BP systolic 127–154; BP diastolic 56–79; PULSE 51–79; RESP 14–20; TEMP 36.3–36.5; O2SAT 87–99
[2020-03-28 06:09] LABS: Absolute Lymphocyte Count 0.72 X10^3/uL (0.83-4.51); Absolute Neutrophil Count 8.7 X10^3/uL (2.0-7.7); Basophil# 0.03 X10^3/uL; Basophil% 0.3 % (0-1); Eosinophil# 0.02 X10^3/uL; Eosinophils% 0.2 % (0-5); Hematocrit 35.2 % (37-47); Lymphocyte # 0.72 X10^3/ul (4.0); Lymphocyte % 6.7 % (19-41); Mean Corp Hgb Conc 31.3 g/dL (32-36); Mean Corpuscular Hgb 28.9 pg (27.0-32.0); Mean Corpuscular Volume 92.4 fL (81-99); Monocyte# 0.85 X10^3/uL; Monocyte% 7.9 % (0-10); NRBC Flagged by Analyzer 0.6 % (0-5); Neutrophil # 8.67 X10^3/uL (2.7-7.7); Neutrophil % 81.1 % (47-70); Platelet Count 127 K/mm3 (150-450); RBC Distribution Width CV 18.6 % (11.6-14.6); RBC Distribution Width SD 60.3 fl (35.1-43.9); Red Blood Count 3.81 M/mm3 (4.2-5.4); White Blood Count 10.7 K/mm3 (4.4-11.0)
--- NOTE | 2020-03-28 07:38 | PCM.DC ---
- Discharge Diagnoses Current Active Problems: Current Active and Chronic Problems (Last Reviewed 10/25/19 @ 13:[address] Sita Salter MD) Pulmonary fibrosis (Chronic) Acute respiratory insufficiency (Acute) Atypical chest pain (Acute) Mitral insufficiency (Chronic) Ascites (Chronic) Elevated tumor markers (Chronic) Preoperative cardiovascular examination (Chronic) Essential hypertension (Chronic) You will use the following diet at home:: No restrictions Your food should be the consistency of: Regular Your liquids should be the consistency of: Regular/Thin Discharge Activity: Return to Normal Activity Weight Bearing Status: Full weight bearing Additional Instructions: Do not take any Ibuprofen or Alleve, do not take Meloxicam Allergies/Adverse Reactions: Allergies latex Allergy (Verified 03/26/20 10:36) Rash Medications to take at Discharge Pravastatin Sodium 40 mg PO QHS 12/30/18 Albuterol IH (ProAir) [Proair Hfa] 1 puff INHALATION Q6H PRN PRN #1 inhaler 01/05/19 Prednisone 10 mg PO DAILY 09/27/19 Vit C/E/Zn/Coppr/Lutein/Zeaxan [Preservision Areds 2 Softgel] 1 ea PO BID 12/16/19 Acetaminophen [Tylenol] 1,000 mg PO DAILY PRN 03/26/20 Amlodipine [Norvasc] 5 mg PO DAILY 03/26/20 Furosemide 40 mg PO DAILY 03/26/20 Loratadine [Claritin] 10 mg PO DAILY PRN 03/26/20 Spironolactone 25 mg PO DAILY 03/26/20 Ferrous Sulfate 325 mg PO BIDCM #60 tab 03/28/20 Pantoprazole Sodium [Protonix] 40 mg PO DAILY #30 tab 03/28/20 The following prescriptions were given: Ferrous Sulfate 325 mg PO BIDCM #60 tab Transmission Status: Pending to [id number] Pantoprazole Sodium [Protonix] 40 mg PO DAILY #30 tab Transmission Status: Pending to [id number] Primary Care Physician: Jose Eduardo Patrick MD [Primary Care Provider] - Please follow up with your Primary Care Physician in: in 2 weeks Test Results: Test results from this visit will be discussed in further detail at your follow-up appointment, if applicable.
[2020-03-28] MEDS: guaiFENesin 1,200 MG Tablet 1200 MG PO (08:49)
[2020-03-28] MEDS: amLODIPine 5 MG Tablet PO (08:49)
[2020-03-28] MEDS: Furosemide 40 MG Tablet PO (08:50)
[2020-03-28] MEDS: Multivitamin (Healthy Eyes) Capsule 1 CAP PO (08:50)
[2020-03-28] MEDS: predniSONE 10 MG Tablet PO (08:50)
[2020-03-28] MEDS: Spironolactone 25 MG Tablet PO (08:50)
[2020-03-28] MEDS: Pantoprazole Sodium 40 MG Tablet PO (08:52)
[2020-03-28] MEDS: 0.9% Saline Lock 10 ML Syringe IV (10:25)
--- NOTE | 2020-03-28 11:27 | CASEMGMT ---
Per Michele LOVE, pt qualifies for 3L w/ exertion home oxygen at this time. New order faxed to [facility] for same at this time and call to Deyanira at [facility] at this time to update as pt feels she needs longer tubing at home. Deyanira voices understanding and states will call daughter, Shobha Underwood, to see if they need to bring it out to home or if they can mail it at this time. Pt encouraged to get pulse oximeter for at home as well. Per therapy, pt just needs to use walker at home and maybe get a golf instructor. Pt provided with info on same from therapy. Pt voices no further questions/concerns/needs at this time. Michele LOVE aware to go over d/c instructions/recommendations with daughter and pt, voices understanding. Dionisio LOVE CM
--- NOTE | 2020-03-28 11:57 | PHA.DC.MC ---
Pharmacy Service has performed discharge medication reconciliation and counseling for this patient. 1. FERROUS SULFATE 325MG PO BIDCM 2. PANTOPRAZOLE 40MG PO DAILY The patient's discharge medication list was reviewed for discrepancies and discrepancies were resolved. Home Medications Pravastatin Sodium 40 mg PO QHS 12/30/18 Albuterol IH (ProAir) [Proair Hfa] 1 puff INHALATION Q6H PRN PRN #1 inhaler 01/05/19 Prednisone 10 mg PO DAILY 09/27/19 Vit C/E/Zn/Coppr/Lutein/Zeaxan [Preservision Areds 2 Softgel] 1 ea PO BID 12/16/19 Acetaminophen [Tylenol] 1,000 mg PO DAILY PRN 03/26/20 Amlodipine [Norvasc] 5 mg PO DAILY 03/26/20 Furosemide 40 mg PO DAILY 03/26/20 Loratadine [Claritin] 10 mg PO DAILY PRN 03/26/20 Spironolactone 25 mg PO DAILY 03/26/20 Ferrous Sulfate 325 mg PO BIDCM #60 tab 03/28/20 Pantoprazole Sodium [Protonix] 40 mg PO DAILY #30 tab 03/28/20 The patient was counseled on the following discharge medications and changes in medications for homegoing were reviewed. The Reason for Use, instructions for use, and potential side effects were reviewed for all new medications. The patient's questions regarding all of their medications were answered. The patient was able to verbally demonstrate an understanding of their discharge medications.
[2020-03-28] MEDS: oxyCODONE 5 MG Tablet PO (13:40)
--- NOTE | 2020-03-28 16:27 | PCM.DC.SUM ---
Discharge Date and Diagnosis - Problem List Patient Problems: Active and Suspected Problems (Last Reviewed 10/25/19 @ 13:[address] Sita Salter MD) Acute respiratory insufficiency (Acute) Atypical chest pain (Acute) Date of Admission: 03/26/20 Date of Discharge: 03/28/20 - Primary Discharge Diagnosis Acute Problems: Active Problems (Last Reviewed 10/25/19 @ 13:[address] Sita Salter MD) #1 atypical chest pain-etiology unclear, probably musculoskeletal #2 acute anemia-etiology unclear-requiring blood transfusion #3 iron deficiency anemia #4 severe pulmonary fibrosis #5 chronic hypoxic respiratory failure secondary to severe pulmonary fibrosis #6 essential hypertension #7 chronic pain secondary to osteoarthritis #8 leukocytosis-etiology unclear - Secondary Discharge Diagnosis Chronic Problems: Chronic Problems (Last Reviewed 10/25/19 @ 13:[address] Sita Salter MD) Pulmonary fibrosis (Chronic) Mitral insufficiency (Chronic) Ascites (Chronic) Elevated tumor markers (Chronic) Preoperative cardiovascular examination (Chronic) Essential hypertension (Chronic) Hospital Course and Treatment Operations: None Procedures: Blood transfusion Summary of Care Provided: The patient is a 84 year old F who was seen in the emergency room at [facility] with complaints of left-sided chest pain. This had been going on for several days. Patient states she was coughing vigorously while riding in a car and started having pain in her left chest area approximately 2 to 3 days prior. Patient states that she had worsening chest pain in her left upper chest area and she is experiencing some increased shortness of breath. Patient wears oxygen at home at 2 to 3 L due to pulmonary fibrosis. Work-up in the emergency room included a chest x-ray which showed chronic changes consistent with pulmonary fibrosis, CT of the chest abdomen and pelvis was done which showed no acute changes, patient required 2 to 3 L of oxygen via nasal cannula to maintain her pulse ox above 90%, patient stated that she usually only used oxygen at night or when she felt she needed it. Chest x-ray showed elevated white blood cell count at 27.1. Patient was admitted to PCU, she was seen in consultation by pulmonary medicine, initially the patient was placed on IV antibiotics and IV corticosteroids but according to pulmonary medicine, they did not feel the patient needed this line of treatment. Patient's repeat white blood cell count diminished during her hospitalization-the etiology for the elevation at the time of admission was never ascertained. Patient's hemoglobin dropped to 8 the day after admission, it was felt that she would benefit from a blood transfusion, she received 2 units of packed red blood cells and her serum iron level was noted to be low and she was given IV Venofer. Patient was seen by PT and OT. On 03/28/2020, patient was seen and examined: On examination she appeared in good health and spirits, she does not appear to be in any distress. Vital signs as documented. Skin warm and dry and without overt rashes. Neck without JVD, thyroid appears normal, trachea is midline, neck is supple. Lungs clear, normal air movement was noted. Heart exam notable for regular rhythm, normal sounds and absence of murmurs, rubs or gallops. Abdomen unremarkable and without evidence of organomegaly, masses, or abdominal aortic enlargement, bowel sounds are present in all 4 quadrants, no abdominal tenderness was noted. Extremities nonedematous, no cyanosis was noted, no clubbing was noted. Neuro: Cranial nerves II through XII are grossly intact, no focal motor deficits were noted, sensation to light touch and pinprick is intact, motor exam 5/5 throughout. Psych: Patient is alert and oriented x3, she does not appear anxious or depressed, she does not appear agitated. On 03/28/2020, patient was ambulated and was noted to require 3 L of oxygen to maintain her pulse ox at 90%, while ambulating on 2 L which was the patient's home oxygen setting, patient's pulse ox was 87%. While at rest on room air, her pulse ox was 94%. She required no oxygen at rest however, she was expected to use oxygen on ambulation inside the home and outside the home. On 03/28/2020, patient appeared stable for discharge home. Patient Problems: Active and Suspected Problems (Last Reviewed 10/25/19 @ 13:[address] Sita Salter MD) Acute respiratory insufficiency (Acute) Atypical chest pain (Acute) - Physical Exam Vitals/I&O's: Vital Signs Temp Pulse Resp BP Pulse Ox 97.6 F L 79 20 H 154/79 H 94 03/28/20 08:46 03/28/20 08:46 03/28/20 08:46 03/28/20 08:46 03/28/20 11:22 Oxygen Flow Rate (L/min) [ 3 AMBULATION with Oxygen] Oxygen Flow Rate (L/min) [ 2 AMBULATING on Room Air] Oxygen Flow Rate (L/min) [At 0 REST on Room Air] Oxygen Flow Rate (L/min) 3 Oxygen Delivery Method Nasal Cannula Weight: 59.5 kg Body Mass Index (BMI) 24.3 Intake and Output for Last 24 Hours 03/26/20 03/27/20 03/28/20 23:59 23:59 23:59 Intake Total 1425 / 1425 2428.33 / 2428.33 670 / 670 Output Total 250 / 250 1050 / 1450 400 / 400 Balance 1175 / 1175 1378.33 / 978.33 270 / 270 Microbiology Past 72 Hours 03/26/20 11:40 Blood Culture (Wb) #2 - Left Wrist Blood Culture - Preliminary No growth in 48 hours. 03/26/20 11:45 Blood Culture (Wb) #2 - Anticubital Left Blood Culture - Preliminary No growth in 48 hours. 03/27/20 01:10 Sputum, Expectorated/Coughed Gram Stain - Final 03/27/20 01:10 Sputum, Expectorated/Coughed Respiratory Culture - Preliminary Appears to be normal respiratory mackenzie. Further studies to follow. 03/27/20 14:55 Stool Stool Occult Blood (WALTER) - Final Occult Blood Positive 03/27/20 Unknown Urine, Clean Catch Streptococcus pneumoniae Antigen (M - Final 03/26/20 14:05 Mucosa - Nose Respiratory Panel (PCR) - Final 03/26/20 19:30 Urine, Clean Catch Legionella Antigen - Final 03/26/20 12:01 Mucosa - Nose SARS-CoV-2 Antigen (Rapid) - Final Laboratory Results 03/27/20 10:30: Blood Type O POSITIVE, Antibody Screen NEGATIVE, Crossmatch See Detail 03/28/20 05:30: WBC 10.7, RBC 3.81 L, Hgb 11.0 L, Hct 35.2 L, MCV 92.4 D, MCH 28.9, MCHC 31.3 L, RDW Std Deviation 60.3 H, RDW Coeff of Kerri 18.6 H, Plt Count 127 L, MPV 10.0, Immature Gran % (Auto) 3.800 H, Neut % (Auto) 81.1 H, Lymph % (Auto) 6.7 L, [place] % (Auto) 7.9, Eos % (Auto) 0.2, Baso % (Auto) 0.3, Absolute Neuts (auto) 8.7 H, Absolute Lymphs (auto) 0.72 L, Nucleated RBC % 0.6 Discharge Activity: Return to Normal Activity Weight Bearing Status: Full weight bearing Home Medications: Medications to take at Discharge Pravastatin Sodium 40 mg PO QHS 12/30/18 Albuterol IH (ProAir) [Proair Hfa] 1 puff INHALATION Q6H PRN PRN #1 inhaler 01/05/19 Prednisone 10 mg PO DAILY 09/27/19 Vit C/E/Zn/Coppr/Lutein/Zeaxan [Preservision Areds 2 Softgel] 1 ea PO BID 12/16/19 Acetaminophen [Tylenol] 1,000 mg PO DAILY PRN 03/26/20 Amlodipine [Norvasc] 5 mg PO DAILY 03/26/20 Furosemide 40 mg PO DAILY 03/26/20 Loratadine [Claritin] 10 mg PO DAILY PRN 03/26/20 Spironolactone 25 mg PO DAILY 03/26/20 Ferrous Sulfate 325 mg PO BIDCM #60 tab 03/28/20 Pantoprazole Sodium [Protonix] 40 mg PO DAILY #30 tab 03/28/20 Following Prescriptions Were Given to Patient: Ferrous Sulfate 325 mg PO BIDCM #60 tab Transmission Status: Received by [facility] Pantoprazole Sodium [Protonix] 40 mg PO DAILY #30 tab Transmission Status: Received by [facility] Primary Care Physician: Jose Eduardo Patrick MD [Primary Care Provider] - Please follow up with your Primary Care Physician in: in 2 weeks Disposition: Home Minutes spent on discharge:: 32 Patient Condition:: Stable Medical Necessity - Tobacco Use Smoking Status: Former smoker Meaningful Use Info Meaningful Use Diagnoses (Choose all that apply): None applicable Inpatient E&M: 69597 Disch Hosp
--- NOTE | 2020-03-29 08:09 | CASEMGMT ---
D/C summary faxed to [facility] at this time. Dionisio LOVE CM
== END 2020-03-28 14:12 | disposition home or self-care (01) | DRG 197 ==
LOC: ED 13:56 → PCU 14:59
PROVIDERS: Admitting Provider Internal Medicine; Emergency Provider Emergency Medicine; PCP Family Medicine; Visit Provider Internal Medicine
DX: J84.10 Pulmonary fibrosis, unspecified (principal); K76.6 Portal hypertension; J96.11 Chronic respiratory failure with hypoxia; R18.8 Other ascites; I85.00 Esophageal varices without bleeding; D50.9 Iron deficiency anemia, unspecified; E78.5 Hyperlipidemia, unspecified; G89.29 Other chronic pain; I10 Essential (primary) hypertension; M19.90 Unspecified osteoarthritis, unspecified site; I34.0 Nonrheumatic mitral (valve) insufficiency; H35.30 Unspecified macular degeneration; F32.9 Major depressive disorder, single episode, unspecified; Z87.19 Personal history of other diseases of the digestive system; Z87.891 Personal history of nicotine dependence; Z79.899 Other long term (current) drug therapy
CPT/HCPCS: 36415; 71045; 71275; 72191; 74174; 74175; 80048; 80076; 82274; 82962; 83540; 83550; 83605; 83735; 84443; 84484; 85025; 86850; 86900; 86901; 86920; 86922; 87040; 87070; 87205; 87426; 87449; 87633; 87635; 93005; 94667; 94668; 97110; 97116; 97162; 97166; 97530; 97535; 99285; J7030; J7040; J7050; P9016; Q9967; A4216; J2916; U0002

== ENCOUNTER → 2020-04-05 10:55 | Outpatient (CLI) | payer MEDICARE, SELFPAY ==
[2020-03-26 17:38] VITALS: BMI 24.3
[2020-04-05 12:15] LABS: Absolute Lymphocyte Count 0.76 X10^3/uL (0.83-4.51); Absolute Neutrophil Count 18.8 X10^3/uL (2.0-7.7); Basophil# 0.09 X10^3/uL; Basophil% 0.4 % (0-1); Eosinophil# 0.03 X10^3/uL; Eosinophils% 0.1 % (0-5); Hematocrit 42.3 % (37-47); Hemoglobin 13.4 g/dL (12.0-15.0); Lymphocyte # 0.76 X10^3/ul (4.0); Lymphocyte % 3.6 % (19-41); Mean Corp Hgb Conc 31.7 g/dL (32-36); Mean Corpuscular Hgb 29.8 pg (27.0-32.0); Mean Corpuscular Volume 94.2 fL (81-99); Mean Platelet Vol. 10.8 fl (6.2-12.0); Monocyte# 1.19 X10^3/uL; Monocyte% 5.7 % (0-10); NRBC Flagged by Analyzer 0.1 % (0-5); Neutrophil # 18.75 X10^3/uL (2.7-7.7); Neutrophil % 89.2 % (47-70); POSITIVE MORPHOLOGY YES; Platelet Count 226 K/mm3 (150-450); RBC Distribution Width CV 19.3 % (11.6-14.6); RBC Distribution Width SD 65.1 fl (35.1-43.9); Red Blood Count 4.49 M/mm3 (4.2-5.4)
[2020-04-05 12:17] LABS: Differential Indicated SCAN CRITERIA MET
[2020-04-05 12:41] LABS: Ferritin 409 ng/mL (8-252); Iron 75 ug/dL (50-170); Iron Binding Capacity,Total 301 ug/dL (250-450); PERCENT IRON SATURATION 24.9 % (15.0-55.0)
[2020-04-05 12:43] LABS: Differential Comment SCANNED
[2020-04-06 13:21] LABS: Pathologist Review Reviewed
== END ==
PROVIDERS: PCP Family Medicine; Referring Provider Family Medicine; Visit Provider Family Medicine
DX: D64.9 Anemia, unspecified (principal); D72.829 Elevated white blood cell count, unspecified
CPT/HCPCS: 36415; 82728; 83540; 83550; 85025

== ENCOUNTER → 2020-05-16 11:50 | Outpatient (CLI) | payer MEDICARE, SELFPAY ==
[2020-03-26 17:38] VITALS: BMI 24.3
[2020-05-16 15:40] LABS: Absolute Lymphocyte Count 0.67 X10^3/uL (0.83-4.51); Absolute Neutrophil Count 10.6 X10^3/uL (2.0-7.7); Basophil# 0.08 X10^3/uL; Basophil% 0.6 % (0-1); Eosinophil# 0.04 X10^3/uL; Eosinophils% 0.3 % (0-5); Hematocrit 40.2 % (37-47); Hemoglobin 12.6 g/dL (12.0-15.0); Lymphocyte # 0.67 X10^3/ul (4.0); Lymphocyte % 5.2 % (19-41); Mean Corp Hgb Conc 31.3 g/dL (32-36); Mean Corpuscular Hgb 31.1 pg (27.0-32.0); Mean Corpuscular Volume 99.3 fL (81-99); Mean Platelet Vol. 10.9 fl (6.2-12.0); Monocyte% 8.5 % (0-10); NRBC Flagged by Analyzer 0.2 % (0-5); Neutrophil % 82.4 % (47-70); POSITIVE MORPHOLOGY YES; Platelet Count 125 K/mm3 (150-450); RBC Distribution Width CV 19.5 % (11.6-14.6); RBC Distribution Width SD 70.2 fl (35.1-43.9); Red Blood Count 4.05 M/mm3 (4.2-5.4); White Blood Count 12.9 K/mm3 (4.4-11.0)
[2020-05-16 16:03] LABS: Vitamin B12 768 pg/mL (211-911)
[2020-05-16 16:11] LABS: Differential Indicated SCAN CRITERIA MET
[2020-05-16 16:12] LABS: ALB/GLOB Ratio 0.6 RATIO (0.9-2.4); AST(SGOT) 68 U/L (15-37); Alanine Aminotransfer ALT/SGPT 120 U/L (13-56); Albumin, Serum 2.5 g/dL (3.2-5.0); Alkaline Phosphatase 253 U/L (45-117); Anion Gap 8 (5-15); BUN 24 mg/dL (7-18); BUN/Creat Ratio 40.3 RATIO (10-20); Calcium,Total 8.7 mg/dL (8.5-10.1); Chloride 101 mmol/L (98-107); Cholesterol 201 mg/dL (200); EST Glomerular Filtration Rate 103 mL/min (>60); Est Glom Filt Rate - Afr Amer 124 mL/min (>60); Ferritin 298 ng/mL (8-252); Globulin 4.2 g/dL (2.2-4.2); Glucose 169 mg/dL (74-106); High Density Lipoprotein 60 mg/dL; Iron 64 ug/dL (50-170); Iron Binding Capacity,Total 274 ug/dL (250-450); Potassium 3.6 mmol/L (3.5-5.1); Protein, Total 6.7 g/dL (6.4-8.2); Sodium Level 140 mmol/L (136-145); Triglycerides 158 mg/dL; Very Low Density Lipoprotein 32 mg/dL (5-40)
[2020-05-16 16:33] LABS: Anisocytosis 1+; Differential Comment SCANNED
== END ==
PROVIDERS: PCP Family Medicine; Referring Provider Family Medicine; Visit Provider Family Medicine
DX: D64.9 Anemia, unspecified (principal); E78.00 Pure hypercholesterolemia, unspecified
CPT/HCPCS: 36415; 80053; 80061; 82607; 82728; 82746; 83540; 83550; 85025